=== PATIENT | male | born 1955 | race Caucasian/White ===

== ENCOUNTER 2016-06-03 13:27 | Emergency (ER) | payer OTHER ==
[~2016-06-03] VITALS: Ht 162.6 cm; Wt 63.5 kg
[~2016-06-03 13:27] MED LIST: ACET500C5 PO; ATOR10TA65 PO; BEN25 PO; CALAMINE TOP; DOCU-144 PO; FAMO40TA52 PO; GABA300C PO; GLIP5TAB25 PO; GUAI-637 PO; HC1C30 TOP; HYDR-3498 PO; IBUP-1542 PO; INSU100I15 SC; LISI10TA2 PO; LORA10CA PO; OMEP20CA16 PO; ONDA4TAB35 PO; PANT40TA3 PO; PERM120L5 TP; SITA50TA2 PO; SODI126M NASAL
[2016-06-03 13:32] VITALS: Ht 162.6 cm; Wt 63.5 kg
[2016-06-03] MEDS ORDERED: ONDANSETRON 4 MG INJ IV STA (14:24)
[2016-06-03] MEDS ORDERED: SOD CHLORIDE 0.9% 1,000 ML IV STA (14:24)
[2016-06-03] MEDS ORDERED: LIDOCAINE/MYLANTA 40 ML BTL PO ONE (14:30)
[2016-06-03] MEDS ORDERED: FAMOTIDINE 20 MG INJ IV ONE (14:30)
[2016-06-03 15:08] LABS: BASOPHIL # 0.1 10^3/ul (0.0-0.1); EOSINOPHILS # 0.5 10^3/ul (0.0-0.5); LYMPHOCYTES # 3.1 10^3/ul (0.8-2.9); MONOCYTE # 1.1 10^3/ul (0.3-0.9); RED BLOOD COUNT 4.71 10^6/ul (4.70-6.10)
[2016-06-03 15:11] LABS: ADD UMIC YES; URINE BILIRUBIN (Dip) NEGATIVE (NEGATIVE); URINE BLOOD (Dip) TRACE (NEGATIVE); URINE COLOR YELLOW (YELLOW); URINE GLUCOSE (Dip) NEGATIVE (NEGATIVE); URINE KETONES (Dip) TRACE (NEGATIVE); URINE LEUKOCYTE ESTERASE (Dip) NEGATIVE (NEGATIVE); URINE NITRITE (Dip) NEGATIVE (NEGATIVE); URINE TOTAL PROTEIN (Dip) 1+ (NEGATIVE); URINE UROBILINOGEN (Dip) 0.2 E.U./dL (0.1-1.0)
[2016-06-03 15:13] LABS: EOSINOPHILS % 4.3 % (0.0-7.0); HEMATOCRIT 43.2 % (42.0-52.0); HEMOGLOBIN 14.4 g/dl (14.0-18.0); LYMPHOCYTES % 25.3 % (15.0-51.0); MEAN CORPUSCULAR HEMOGLOBIN 30.6 pg (29.0-33.0); MEAN CORPUSCULAR HGB CONC 33.4 g/dl (32.0-37.0); MEAN CORPUSCULAR VOLUME 91.7 fl (82.0-101.0); MEAN PLATELET VOLUME 8.8 fl (7.4-10.4); NEUTROPHIL # 7.4 10^3/ul (1.6-7.5); NEUTROPHILS % 60.4 % (39.0-77.0); PLATELET COUNT 290 10^3/UL (140-440); RED CELL DISTRIBUTION WIDTH 13.8 % (11.5-14.5); UNCORRECTED WBC 12.2 10^3/ul (4.8-10.8); WHITE BLOOD COUNT 12.2 10^3/ul (4.8-10.8)
[2016-06-03 15:16] LABS: ALBUMIN 4.6 g/dl (3.3-4.9); POTASSIUM 4.9 mmol/L (3.5-5.1)
[2016-06-03 15:18] LABS: CREATININE 1.49 mg/dl (0.61-1.24)
[2016-06-03 15:19] LABS: ALBUMIN/GLOBULIN RATIO 1.06; BILIRUBIN,INDIRECT 0.4 mg/dl (0-1.1); BILIRUBIN,TOTAL 0.4 mg/dl (0.2-1.3); TOTAL PROTEIN 8.9 g/dl (6.1-8.1)
[2016-06-03 15:20] LABS: CALCIUM 10.1 mg/dl (8.4-10.2)
[2016-06-03 15:52] LABS: CONDITION 1; LH ANALYZER COMMENTS 1
[2016-06-03 15:59] LABS: SQUAMOUS EPITHELIAL CELL,UR RARE; URINE RBCS 0-2 /HPF (0)
[2016-06-03] MEDS ORDERED: OMEP20CA16 PO (17:30)
[2016-06-03] MEDS ORDERED: ONDA4TAB14 PO (17:30)
[2016-06-03] MEDS ORDERED: HYDR25SU23 PR (17:30)
[2016-06-03 17:40] VITALS: BP 141/67; PULSE 77; RESP 18; TEMP 98.5
--- NOTE | 2016-06-03 17:51 | ERD ---
ER Documentation Chief Complaint Date/Time DATE: 06/03/16 TIME: 17:44 Chief Complaint vomitting x 3 days HPI 60-year-old male with a past medical history of diabetes, renal insufficiency presents the ED complaining of slight abdominal pain as well as vomiting that started 3 days ago. Reports that he has normal bowel movements. States that he also had some slight rectal bleeding and states that he does have a history of hemorrhoids. Denies any diarrhea, chest pain, shortness of breath, fever. Patient has been seen here multiple times for similar symptoms. ROS All systems reviewed and are negative except as per history of present illness. Medications Home Meds Active Scripts Hydrocortisone Acetate (Anusol-Hc) 25 Mg Supp.rect, 1 SUPP DC BID Y for HEMORROID PAIN/ITCHING, #12 SUPP.RECT Prov:CHANTELLE COLEMAN PA-C 06/03/16 Omeprazole* (Omeprazole*) 20 Mg Capsule.dr, 20 MG PO DAILY, #30 CAP Prov:CHANTELLE COLEMAN PA-C 06/03/16 Ondansetron (Ondansetron Odt) 4 Mg Tab.rapdis, 4 MG PO Q6H Y for NAUSEA AND/OR VOMITING, #10 TAB Prov:CHANTELLE COLEMAN PA-C 06/03/16 Guaifenesin* (Robitussin*) 100 Mg/5 Ml Syrup, 100 MG PO Q4H Y for COUGH, #120 ML Prov:KALA CAMARA NP 04/18/16 Sodium Chloride (Saline Nasal Mist) 126 Ml Mist, 2 SPRAY NASAL Q2H Y for NASAL CONGESTION, #1 BOTTLE Prov:KALA CAMARA NP 04/18/16 Acetaminophen* (Tylophen*) 500 Mg Capsule, 1 CAP PO Q6H Y for PAIN AND OR ELEVATED TEMP, #20 CAP Prov:KALA CAMARA NP 04/18/16 Permethrin (Permethrin) 120 Ml Liquid, 120 ML TP QHS for 1 Day, #120 ML 0 Refills Prov:ELAINE NEFF PA-C 01/25/16 Calamine* (Calamine*) 120 Ml Lotion, 1 APPLIC TOP Q6 for 5 Days, #120 EA 0 Refills Prov:ELAINE NEFF PA-C 01/25/16 Diphenhydramine Hcl* (Benadryl*) 25 Mg Cap, 25 MG PO Q6 Y for ITCHING/RASH for 7 Days, #30 TAB 0 Refills Prov:ELAINE NEFF PA-C 01/25/16 Hydrocodone Bit-Acetaminophen* ([place]*) 5-325 Mg Tab, 1 TAB PO Q6 Y for PAIN, # 20 TAB Prov:AMAYA VILLAFANA [employer] 11/07/15 Ondansetron Hcl* (Zofran* ODT) 4 mg -ODT Tab.disper, 4 MG PO Q8 Y for NAUSEA AND /OR VOMITING, #30 TAB Prov:AMAYA VILLAFANA [employer] 11/07/15 Ibuprofen* (Motrin*) 600 Mg Tab, 600 MG PO Q6, #30 TAB Prov:HAKEEM FORD PA-C 10/30/15 Hydrocortisone* Topical (Hydrocortisone* Topical) 1%-28.35 Gm Cream..g., 1 APPLIC TOP Q6 Y for ITCHING, #1 TUB Prov:TARAS AMBROSIO PA-C 07/09/15 Diphenhydramine Hcl* (Benadryl*) 25 Mg Cap, 25 MG PO Q6, #14 CAP Prov:TARAS AMBROSIO PA-C 07/09/15 Loratadine* (Claritin*) 10 Mg Capsule, 10 MG PO DAILY, #30 CAP Prov:JESSA GARRISON DO 03/14/15 Sitagliptin* (Januvia*) 50 Mg Tablet, 50 MG PO DAILY, #30 TAB Prov:JESSA GARRISON DO 03/14/15 Ibuprofen* (Ibuprofen*) 600 Mg Tablet, 600 MG PO Q6, #30 TAB Prov:JESSA GARRISON DO 03/14/15 Glipizide* (Glipizide ER*) 5 Mg/Bottle Tab.osm.24, 5 MG PO DAILY, #30 TAB Prov:JESSA GARRISON DO 03/14/15 Omeprazole* (Omeprazole*) 20 Mg Capsule.dr, 20 MG PO DAILY, #30 CAP Prov:JESSA GARRISON DO 03/14/15 Docusate Sodium* (Colace*) 100 Mg Capsule, 100 MG PO BID, #60 CAP Prov:JESSA GARRISON HKalli DO 03/14/15 Atorvastatin (Atorvastatin) 10 Mg Tablet, 10 MG PO DAILY, #30 TAB Prov:JESSA GARRISON DO 03/14/15 Insulin Glargine,Hum.rec.anlog (Lantus Solostar) 100 Units/Ml Pen, 32 UNIT SC QHS, #30 DOSE Prov:JESSA GARRISON DO 03/14/15 Pantoprazole* (Protonix*) 40 Mg Tablet.dr, 40 MG PO DAILY, #20 TAB Prov:ANY LARSON MD 03/10/15 Reported Medications Famotidine* (Famotidine*) 40 Mg Tablet, 40 MG PO DAILY, TAB 05/13/14 Gabapentin* (Neurontin*) 300 Mg Capsule, 300 MG PO TID 08/22/12 Lisinopril* (Lisinopril*) 10 Mg Tablet, 10 MG PO DAILY 06/17/11 Allergies Allergies: Coded Allergies: No Known Drug Allergies (Verified Allergy, Unknown, 05/29/15) PMhx/Soc History of Surgery: No Anesthesia Reaction: No Hx Neurological Disorder: Yes (DEAF) Hx Respiratory Disorders: No Hx Cardiac Disorders: Yes (HTN) Hx Psychiatric Problems: No Hx Miscellaneous Medical Probl: Yes (CKD, chronic pain, DM,diabetic neuropathy, gastritis, RECTAL BLEEDING) Hx Alcohol Use: No Hx Substance Use: No Hx Tobacco Use: Yes (1 PACK PER WEEK ) Smoking Status: Current some day smoker Physical Exam Vitals Vital Signs Date Time Temp Pulse Resp B/P Pulse Ox O2 Delivery O2 Flow Rate FiO2 06/03/16 17:40 98.5 77 18 141/67 99 Room Air 06/03/16 13:32 98.3 90 19 142/64 99 Physical Exam Const: [id number], well-nourished. In no acute distress. Head: Atraumatic, normocephalic Eyes: Normal Conjunctiva without injection. No purulent discharge. ENT: Normal external ear, nose. Moist oropharynx without tonsillar exudates. Non -erythematous pharynx. Uvula midline. No drooling. No trismus. Neck: No cervical midline tenderness. Full range of motion. No meningismus. No cervical lymphadenopathy. No JVD. Resp: Clear to auscultation bilaterally. No wheezing, rhonchi, rales, or crackles. No accessory muscle use. No retractions. Cardio: Regular rate and rhythm. No murmurs, rubs or gallops. Abd: Soft, nontender to palpation, non distended. Normal bowel sounds. No palpable masses. No rebound tenderness. No guarding. Negative McBurney's point. Negative psoas sign. Negative obturator sign. Skin: No petechiae or rashes Back: No midline tenderness. No CVA tenderness. Ext: No cyanosis, or edema. Neur: Awake and alert. Normal gait. Normal coordination. Psych: Normal Mood and Affect Result Diagram: 06/03/16 1440 06/03/16 1440 Results 24 hrs Laboratory Tests Test 06/03/16 14:40 06/03/16 16:35 Alanine Aminotransferase (ALT/SGPT) 55IU/L Albumin 4.6g/dl Albumin/Globulin Ratio 1.06 Alkaline Phosphatase 89IU/L Anion Gap 20 Aspartate Amino Transf (AST/SGOT) 63IU/L Basophils # 0.110^3/ul Basophils % 1.0% Blood Urea Nitrogen 27mg/dl Calcium Level 10.1mg/dl Carbon Dioxide Level 28mmol/L Chloride Level 98mmol/L Creatinine 1.49mg/dl Direct Bilirubin 0.00mg/dl Eosinophils # 0.510^3/ul Eosinophils % 4.3% Globulin 4.30g/dl Glucose Level 79mg/dl Hematocrit 43.2% Hemoglobin 14.4g/dl Indirect Bilirubin 0.4mg/dl Lipase 188U/L Lymphocytes # 3.110^3/ul Lymphocytes % 25.3% Mean Corpuscular Hemoglobin 30.6pg Mean Corpuscular Hemoglobin Concent 33.4g/dl Mean Corpuscular Volume 91.7fl Mean Platelet Volume 8.8fl Monocytes # 1.110^3/ul Monocytes % 9.0% Neutrophils # 7.410^3/ul Neutrophils % 60.4% Nucleated Red Blood Cells # 0.010^3/ul Nucleated Red Blood Cells % 0.0/100WBC Platelet Count 23816^3/UL Potassium Level 4.9mmol/L Red Blood Count 4.7110^6/ul Red Cell Distribution Width 13.8% Sodium Level 141mmol/L Total Bilirubin 0.4mg/dl Total Protein 8.9g/dl Urine Bilirubin NEGATIVE Urine Clarity CLEAR Urine Color YELLOW Urine Glucose NEGATIVE% Urine Hemoglobin TRACE Urine Ketones TRACE Urine Leukocyte Esterase NEGATIVE Urine Microscopic RBC 0-2/HPF Urine Microscopic WBC 0-2/HPF Urine Nitrite NEGATIVE Urine Specific [place] 1.025 Urine Squamous Epithelial Cells RARE Urine Total Protein 1+ Urine Urobilinogen 0.2 E.U./dL Urine pH 6.0 White Blood Count 12.210^3/ul Stool Occult Blood NEGATIVE Current Medications Medications (Trade) Dose Ordered Sig/Jerilyn Route PRN Reason Start Time Stop Time Status Last Admin Dose Admin Sodium Chloride (NS) 1,000 ml @ 1,000 mls/hr Q1H STAT IV 06/03/16 14:24 06/03/16 15:23 DC 06/03/16 15:12 Ondansetron HCl (Zofran Inj) 4 mg ONCE STAT IV 06/03/16 14:24 06/03/16 14:27 DC 06/03/16 15:10 Famotidine (Pepcid Iv) 20 mg ONCE ONCE IV 06/03/16 14:30 06/03/16 14:31 DC 06/03/16 15:10 Miscellaneous Medication (Gi Cocktail (2)) 40 ml ONCE ONCE PO 06/03/16 14:30 06/03/16 14:31 DC 06/03/16 15:10 Procedures/MDM This is a 60-year-old male with a past medical history of diabetes presents the ED complaining of abdominal pain and vomiting. Patient is afebrile and nontoxic -appearing. Patient was treated here in the ED with GI cocktail, famotidine, 1 L normal saline with improvement. Patient was further worked up with CBC, CMP, lipase, UA. CBC: Leukocytosis of 12.2 noted. No e/o anemia. CMP: No e/o severe acidosis, alkalosis, Cr of 1.49 (patient has known renal insufficiency), diabetic ketoacidosis, liver disease Lipase within normal limits. Urine: No leukocyte esterase, no nitrites, no hematuria. Patient symptoms are likely due to his gastritis. States that he feels better. A rectal exam was done on patient at this time as he can consent. She was noted to have a non-thrombosed hemorrhoid noted on the right superior aspect of his rectum. There is low suspicion for fissures, fistula, abscess, or other emergent conditions. A differential diagnosis considered includes but is not limited to gastritis, GERD, peptic ulcer disease, cholecystitis, choledocholithiasis, cholangitis, pancreatitis, appendicitis, bowel obstruction , ileus, volvulus, nephrolithiasis, pyelonephritis, hepatitis, perforated viscus , diverticulitis, abdominal hernia, acute abdomen, mesenteric ischemia or other emergent conditions. This case was discussed with my supervising physician, Dr. Perry who agreed with the management and discharge plan. Dr. Perry also evaluated patient at this time. Discharge medications: Zofran, Omeprazole, Anusol Follow up with primary care physician in 1-2 days for referral to construction foreman. Instructed patient to return to the ED sooner for any worsening symptoms. Patient's questions were answered. Patient understood and agreed with discharge plan. Patient discharged stable. Departure Diagnosis: Primary Impression: Abdominal pain Additional Impressions: Acute hemorrhoid Vomiting Condition: Stable Patient Instructions: Abdominal Pain, Hemorrhoids, Vomiting (6Y-Adult), Renal Insufficiency [facility]: [facility] Usted se shepard hecho un examen mdico de control que le indica que no est en chon condicin que requiera tratamiento urgente en el Departamento de Emergencia. Un estudio ms profundo y el tratamiento de jorge condicin pueden esperar sin ningn riesgo hasta que usted sea atendida/o en el consultorio de jorge mdico o chon cl braxton. Es responsabilidad suya arreglar chon fernando para el seguimiento del fabio. MANEJO DE CONDICIONES NO URGENTES EN EL FUTURO 1) Si usted tiene un mdico de atencin primaria: Usted debera llamar a jorge mdico de atencin primaria antes de venir al departamento de emergencia. Despus de las horas de consultorio, jorge doctor o jorge asociado/a est disponible por telfono. El mdico o enfermero de jarad en el servicio telefnico puede asesorarle por helen medio para atender el problema, o fabio contrario se puede programar chon fernando. 2) Si usted no tiene un mdico de atencin primaria: Llame al mdico o clnica de referencia que aparece abajo kaylan las horas de consultorio para hacer chon fernando para que le vean. CLINICAS: [facility] [phone] [facility] [phone] [facility] [phone] [place] [id number] [phone] [facility]. [place] [address] [phone] [facility]. [phone] [address] [facility]. [facility] () ted se shepard hecho un examen mdico de control que le indica que no est en chon condicin que requiera tratamiento urgente en el Departamento de Emergencia. Un estudio ms profundo y el tratamiento de jorge condicin pueden esperar sin ningn riesgo hasta que usted sea atendida/o en el consultorio de jorge mdico o chon cl braxton. Es responsabilidad suya arreglar chon fernando para el seguimiento del fabio. MANEJO DE CONDICIONES NO URGENTES EN EL FUTURO 1) Si usted tiene un mdico de atencin primaria: ted debera llamar a jorge mdico de atencin primaria antes de venir al departamento de emergencia. Despus de las horas de consultorio, jorge doctor o jorge asociado/a est disponible por telfono. El mdico o enfermero de jarad en el servicio telefnico puede asesorarle por helen medio para atender el problema, o fabio contrario se puede programar chon fernando. 2) Si usted no tiene un mdico de atencin primaria: Llame al mdico o condado institucions de referencia que aparece abajo kaylan las horas de consultorio para hacer chon fernando para que le vean. SI USTED NO PUEDE PAGAR PARA CONNOR UN MEDICO puede ir a: [facility] [address] [place] [address] [facility] [address] [place] [address] [facility] [address] [place] [address] [facility] [address] [place], [place] [id number] Additional Instructions: Visite a jorge mdico clinton para un EXAMEN para chon referencia a gastroenteorlogist. Regrese a estas instalaciones si no se mejora devin esper bamos o devin le dijimos. CHANTELLE COLEMAN PA-C Jun 03, 2016 17:51
== END 2016-06-03 17:42 | disposition home or self-care (01) ==
LOC: FTE 13:27
DX: R10.9 Unspecified abdominal pain (principal); K64.8 Other hemorrhoids; R11.10 Vomiting, unspecified; I12.9 Hypertensive chronic kidney disease with stage 1 through stage 4 chronic kidney disease, or unspecified chronic kidney disease; N18.9 Chronic kidney disease, unspecified; E11.9 Type 2 diabetes mellitus without complications; F17.210 Nicotine dependence, cigarettes, uncomplicated; Z79.4 Long term (current) use of insulin; Z79.84 Long term (current) use of oral hypoglycemic drugs
CPT/HCPCS: 36415; 80053; 81001; 82270; 83690; 85025; 96374; 96375; J2405; J7030; Z7502; Z7610; 81003

== ENCOUNTER 2016-11-04 03:05 | Emergency (ER) | payer OTHER ==
[~2016-11-04] VITALS: Ht 167.6 cm; Wt 67.5 kg
[~2016-11-04 03:05] MED LIST changes: +HYDR25SU23 PR; +ONDA4TAB14 PO
[2016-11-04 03:19] VITALS: Ht 167.6 cm; Wt 67.5 kg
[2016-11-04] MEDS ORDERED: ELIM TOP (04:32)
[2016-11-04] MEDS ORDERED: HYDR-3011 PO (04:32)
--- NOTE | 2016-11-04 05:31 | ERA ---
ER Documentation Chief Complaint Date/Time DATE: 11/04/16 TIME: 05:29 Chief Complaint total body itching x 4 days, no rash seen. calamine lotion not working. HPI 61-year-old male presents here in emergency department for complaints of itching all over the body, noted some papular rash, was given calamine lotion by primary care doctor is not working, patient sleeps by himself. Patient does not have any fever or chills. Patient does not have any family members that sleep with him that the same symptoms. ROS All systems reviewed and are negative except as per history of present illness. Medications Home Meds Active Scripts Hydroxyzine Hcl* (Hydroxyzine Hcl*) 25 Mg Tablet, 25 MG PO Q8H Y for ITCHING, # 30 TAB Prov:AMAYA VILLAFANA NP 11/04/16 Permethrin* (Elimite*) 5% Cr, 1 APPLIC TOP ONCE, #1 TUB Prov:AMAYA VILLAFANA NP 11/04/16 Hydrocortisone Acetate (Anusol-Hc) 25 Mg Supp.rect, 1 SUPP GA BID Y for HEMORROID PAIN/ITCHING, #12 SUPP.RECT Prov:CHANTELLE COLEMAN PA-C 06/03/16 Omeprazole* (Omeprazole*) 20 Mg Capsule.dr, 20 MG PO DAILY, #30 CAP Prov:CHANTELLE COLEMAN PA-C 06/03/16 Ondansetron (Ondansetron Odt) 4 Mg Tab.rapdis, 4 MG PO Q6H Y for NAUSEA AND/OR VOMITING, #10 TAB Prov:CHANTELLE COLEMAN PA-C 06/03/16 Guaifenesin* (Robitussin*) 100 Mg/5 Ml Syrup, 100 MG PO Q4H Y for COUGH, #120 ML Prov:KALA CAMARA NP 04/18/16 Sodium Chloride (Saline Nasal Mist) 126 Ml Mist, 2 SPRAY NASAL Q2H Y for NASAL CONGESTION, #1 BOTTLE Prov:KALA CAMARA NP 04/18/16 Acetaminophen* (Tylophen*) 500 Mg Capsule, 1 CAP PO Q6H Y for PAIN AND OR ELEVATED TEMP, #20 CAP Prov:KALA CAMARA NP 04/18/16 Permethrin (Permethrin) 120 Ml Liquid, 120 ML TP QHS for 1 Day, #120 ML 0 Refills Prov:ELIANE NEFF PA-C 01/25/16 Calamine* (Calamine*) 120 Ml Lotion, 1 APPLIC TOP Q6 for 5 Days, #120 EA 0 Refills Prov:ELAINE NEFF PA-C 01/25/16 Diphenhydramine Hcl* (Benadryl*) 25 Mg Cap, 25 MG PO Q6 Y for ITCHING/RASH for 7 Days, #30 TAB 0 Refills Prov:ELAINE NEFF PA-C 01/25/16 Hydrocodone Bit-Acetaminophen* ([place]*) 5-325 Mg Tab, 1 TAB PO Q6 Y for PAIN, # 20 TAB Prov:AMAYA VILLAFANA NP 11/07/15 Ondansetron Hcl* (Zofran* ODT) 4 mg -ODT Tab.disper, 4 MG PO Q8 Y for NAUSEA AND /OR VOMITING, #30 TAB Prov:AMAYA VILLAFANA NP 11/07/15 Ibuprofen* (Motrin*) 600 Mg Tab, 600 MG PO Q6, #30 TAB Prov:HAKEEM FORD PA-C 10/30/15 Hydrocortisone* Topical (Hydrocortisone* Topical) 1%-28.35 Gm Cream..g., 1 APPLIC TOP Q6 Y for ITCHING, #1 TUB Prov:TARAS AMBROSIO PA-C 07/09/15 Diphenhydramine Hcl* (Benadryl*) 25 Mg Cap, 25 MG PO Q6, #14 CAP Prov:TARAS AMBROSIO PA-C 07/09/15 Loratadine* (Claritin*) 10 Mg Capsule, 10 MG PO DAILY, #30 CAP Prov:JESSA GARRISON H. DO 03/14/15 Sitagliptin* (Januvia*) 50 Mg Tablet, 50 MG PO DAILY, #30 TAB Prov:MELIJESSA H. DO 03/14/15 Ibuprofen* (Ibuprofen*) 600 Mg Tablet, 600 MG PO Q6, #30 TAB Prov:MELIJESSA H. DO 03/14/15 Glipizide* (Glipizide ER*) 5 Mg/Bottle Tab.osm.24, 5 MG PO DAILY, #30 TAB Prov:HOJESSA DO 03/14/15 Omeprazole* (Omeprazole*) 20 Mg Capsule., 20 MG PO DAILY, #30 CAP Prov:JESSA GARRISON DO 03/14/15 Docusate Sodium* (Colace*) 100 Mg Capsule, 100 MG PO BID, #60 CAP Prov:JESSA GARRISON DO 03/14/15 Atorvastatin (Atorvastatin) 10 Mg Tablet, 10 MG PO DAILY, #30 TAB Prov:JESSA GARRISON DO 03/14/15 Insulin Glargine,Hum.rec.anlog (Lantus Solostar) 100 Units/Ml Pen, 32 UNIT SC QHS, #30 DOSE Prov:JESSA GARRISON DO 03/14/15 Pantoprazole* (Protonix*) 40 Mg Tablet., 40 MG PO DAILY, #20 TAB Prov:ANY LARSON MD 03/10/15 Reported Medications Famotidine* (Famotidine*) 40 Mg Tablet, 40 MG PO DAILY, TAB 05/13/14 Gabapentin* (Neurontin*) 300 Mg Capsule, 300 MG PO TID 08/22/12 Lisinopril* (Lisinopril*) 10 Mg Tablet, 10 MG PO DAILY 06/17/11 Allergies Allergies: Coded Allergies: No Known Drug Allergies (Verified Allergy, Unknown, 05/29/15) PMhx/Soc History of Surgery: No Anesthesia Reaction: No Hx Neurological Disorder: Yes (DEAF) Hx Respiratory Disorders: No Hx Cardiac Disorders: Yes (HTN) Hx Psychiatric Problems: No Hx Miscellaneous Medical Probl: Yes (CKD, chronic pain, DM,diabetic neuropathy, gastritis, RECTAL BLEEDING) Hx Alcohol Use: No Hx Substance Use: No Hx Tobacco Use: Yes (1 PACK PER WEEK ) Smoking Status: Never smoker FmHx Family History: No coronary disease, No diabetes, No other Physical Exam Vitals Vital Signs Date Time Temp Pulse Resp B/P Pulse Ox O2 Delivery O2 Flow Rate FiO2 11/04/16 03:19 97.9 84 18 137/69 98 Physical Exam GENERAL: The patient is well developed and appropriate for usual state of health, in no apparent distress. CHEST: Clear to auscultation bilaterally. There are no rales, wheezes or rhonchi. HEART: Regular rate and rhythm. No murmurs, clicks, rubs or gallops. No S3 or S4. ABDOMEN: Soft, nontender and nondistended. Good bowel sounds. No rebound or guarding. No gross peritonitis. No gross organomegaly or masses. No Marroquin sign or McBurney point tenderness. BACK: No midline or flank tenderness. EXTREMITIES: Equal pulses bilaterally. There is no peripheral clubbing, cyanosis or edema. No focal swelling or erythema. Full range of motion. Grossly neurovascularly intact. NEURO: Alert and oriented. Cranial nerves 2-12 intact. Motor strength in all 4 extremities with 5/5 strength. Sensation grossly intact. Normal speech and gait. SKIN: Papular rash with burning noted in between fingers. There is no apparent ecchymosis or petechia. The skin is warm and dry. HEMATOLOGIC AND LYMPHATIC: There is no evidence of excessive bruising or lymphedema. No gross cervical, axillary, or inguinal lymphadenopathy. Procedures/MDM Medical decision making: Patient's rash nonspecific at this time, high suspicion for possible scabies. No symptoms of any allergic reaction, symptoms of any coagulopathies. No symptoms of sepsis at this time. Patient appears well and is hemodynamically stable. Prescription was given for permethrin, hydroxyzine, is advised to follow-up with primary care doctor in 2-3 days for reevaluation of symptoms. Patient is advised to return to emergency department for new worsening symptoms. Departure Diagnosis: Primary Impression: Rash Condition: Stable Patient Instructions: Self-Care for Skin Rashes Referrals: KANDACE FOLEY MD (PCP) AMAYA VILLAFANA NP Nov 04, 2016 05:31
== END 2016-11-04 05:02 | disposition home or self-care (01) ==
LOC: FTE 03:05
DX: R21 Rash and other nonspecific skin eruption (principal); I12.9 Hypertensive chronic kidney disease with stage 1 through stage 4 chronic kidney disease, or unspecified chronic kidney disease; N18.9 Chronic kidney disease, unspecified; E11.9 Type 2 diabetes mellitus without complications; F17.210 Nicotine dependence, cigarettes, uncomplicated; Z79.4 Long term (current) use of insulin; Z79.84 Long term (current) use of oral hypoglycemic drugs
CPT/HCPCS: 99283

== ENCOUNTER 2016-12-02 12:37 | Emergency (ER) | END 2016-12-02 15:10 | disposition home or self-care (01) | DX: R10.32 Left lower quadrant pain (principal); R11.2 Nausea with vomiting, unspecified; E87.1 Hypo-osmolality and hyponatremia; I12.9 Hypertensive chronic kidney disease with stage 1 through stage 4 chronic kidney disease, or unspecified chronic kidney disease; N18.9 Chronic kidney disease, unspecified; E11.22 Type 2 diabetes mellitus with diabetic chronic kidney disease; F17.210 Nicotine dependence, cigarettes, uncomplicated | CPT/HCPCS: 36415; 74176; 80053; 81001; 83690; 85025; 96374; 96375; 96376; J2270; J2405; J2765; J7030; Z7502; Z7610 ==

== ENCOUNTER 2016-12-04 22:55 | Emergency (ER) | payer OTHER ==
[~2016-12-04] VITALS: Ht 152.4 cm; Wt 64.5 kg
[~2016-12-04 22:55] MED LIST changes: +ELIM TOP; +HYDR-3011 PO; +ONDA-43 PO
[2016-12-04 23:02] VITALS: Ht 152.4 cm; Wt 64.5 kg
[2016-12-04 23:29] VITALS: TEMP 97.2
[2016-12-05 00:16] LABS: ADD SCAN DIFF NO
[2016-12-05 00:22] LABS: ABNORMAL IP MESSAGE 1; BASOPHIL # 0.1 10^3/ul (0.0-0.1); BASOPHILS % 0.4 % (0.0-2.0); EOSINOPHILS % 0.2 % (0.0-7.0); HEMATOCRIT 44.6 % (42.0-52.0); HEMOGLOBIN 14.4 g/dl (14.0-18.0); LYMPHOCYTES # 2.6 10^3/ul (0.8-2.9); MEAN CORPUSCULAR HEMOGLOBIN 29.1 pg (29.0-33.0); MEAN CORPUSCULAR HGB CONC 32.3 g/dl (32.0-37.0); MEAN CORPUSCULAR VOLUME 90.1 fl (82.0-101.0); MEAN PLATELET VOLUME 11.5 fl (7.4-10.4); MONOCYTE # 1.6 10^3/ul (0.3-0.9); MONOCYTES % 10.2 % (0.0-11.0); NEUTROPHIL # 10.8 10^3/ul (1.6-7.5); NEUTROPHILS % 71.1 % (39.0-77.0); PLATELET COUNT 314 10^3/UL (140-415); RED BLOOD COUNT 4.95 10^6/ul (4.70-6.10); RED CELL DISTRIBUTION WIDTH 13.7 % (11.5-14.5); WHITE BLOOD COUNT 15.2 10^3/ul (4.8-10.8)
--- NOTE | 2016-12-05 00:37 | RADRPT ---
PROCEDURE: XR Chest. CLINICAL INDICATION: Syncope. TECHNIQUE: Single frontal view of the chest. COMPARISON: 07/29/2014. FINDINGS: The cardiomediastinal silhouette is within normal limits. The lungs are clear. No signs of pleural f luid or pneumothorax are seen. The osseous structures and soft tissues are unremarkable. IMPRESSION: No evidence for active cardiopulmonary disease. RPTAT: [facility] Physician Van Date Time Electronically viewed and signed by Vianey Sauer Physician on 12/05/2016 00:36 RS/
[2016-12-05 00:41] LABS: INR 0.99; PARTIAL THROMBOPLASTIN TIME 26.6 Sec (25.0-35.0); PROTIME 13.1 Sec (12.2-14.2)
[2016-12-05 00:44] LABS: ANION GAP 16 (8-16); BLOOD UREA NITROGEN 76 mg/dl (7-20); CALCIUM 10.7 mg/dl (8.4-10.2); CARBON DIOXIDE 23 mmol/L (21-31); CHLORIDE 96 mmol/L (97-110); CREATININE 3.75 mg/dl (0.61-1.24); GLUCOSE 330 mg/dl (70-220); POTASSIUM 4.8 mmol/L (3.5-5.1); SODIUM 130 mmol/L (135-144)
[2016-12-05 00:51] LABS: ETHANOL < 10.0 mg/dl
[2016-12-05 00:55] LABS: TROPONIN-I < 0.012 ng/ml (0.00-0.12)
--- NOTE | 2016-12-05 01:23 | ERA ---
ER Documentation Chief Complaint Date/Time DATE: 12/05/16 TIME: 01:21 Chief Complaint Fainted HPI The patient is a 61-year-old male, presenting to the ER because he fainted in the bathroom for unknown duration. His friend came to his house and found him. He has hard of hearing and speech impairment. He is a very poor historian. He denies headache, neck pain, chest pain, dyspnea, abdominal pain, vomiting, dysuria, diarrhea, constipation. He smokes denies drinking or using any illicit drug Past medical history: Chronic pain syndrome, hypertension, chronic kidney disease, gastritis Past surgical history: None ROS All systems reviewed and are negative except as per history of present illness. Medications Home Meds Active Scripts Ondansetron Hcl* (Zofran*) 4 Mg Tab, 4 MG PO Q6H Y for NAUSEA AND OR VOMITING for 3 Days, TAB Prov:CLAUDINE ZUNIGA DO 12/02/16 Hydroxyzine Hcl* (Hydroxyzine Hcl*) 25 Mg Tablet, 25 MG PO Q8H Y for ITCHING, # 30 TAB Prov:AMAYA VILLAFANA NP 11/04/16 Permethrin* (Elimite*) 5% Cr, 1 APPLIC TOP ONCE, #1 TUB Prov:AMAYA VILLAFANA NP 11/04/16 Hydrocortisone Acetate (Anusol-Hc) 25 Mg Supp.rect, 1 SUPP MS BID Y for HEMORROID PAIN/ITCHING, #12 SUPP.RECT Prov:CHANTELLE COLEMAN PA-C 06/03/16 Omeprazole* (Omeprazole*) 20 Mg Capsule.dr, 20 MG PO DAILY, #30 CAP Prov:CHANTELLE COLEMAN PA-C 06/03/16 Ondansetron (Ondansetron Odt) 4 Mg Tab.rapdis, 4 MG PO Q6H Y for NAUSEA AND/OR VOMITING, #10 TAB Prov:CHANTELLE COLEMAN PA-C 06/03/16 Acetaminophen* (Tylophen*) 500 Mg Capsule, 1 CAP PO Q6H Y for PAIN AND OR ELEVATED TEMP, #20 CAP Prov:KALA CAMARA NP 04/18/16 Calamine* (Calamine*) 120 Ml Lotion, 1 APPLIC TOP Q6 for 5 Days, #120 EA 0 Refills Prov:ELAINE NEFF PA-C 01/25/16 Hydrocodone Bit-Acetaminophen* ([place]*) 5-325 Mg Tab, 1 TAB PO Q6 Y for PAIN, # 20 TAB Prov:AMAYA VILLAFANA COAT CUTTER 11/07/15 Ibuprofen* (Motrin*) 600 Mg Tab, 600 MG PO Q6, #30 TAB Prov:HAKEEM FORDC 10/30/15 Diphenhydramine Hcl* (Benadryl*) 25 Mg Cap, 25 MG PO Q6, #14 CAP Prov:TARAS AMBROSIOC 07/09/15 Glipizide* (Glipizide ER*) 5 Mg/Bottle Tab.osm.24, 5 MG PO DAILY, #30 TAB Prov:JESSA GARRISON DO 03/14/15 Omeprazole* (Omeprazole*) 20 Mg Capsule.dr, 20 MG PO DAILY, #30 CAP Prov:JESSA GARRISON DO 03/14/15 Docusate Sodium* (Colace*) 100 Mg Capsule, 100 MG PO BID, #60 CAP Prov:JESSA GARRISON DO 03/14/15 Atorvastatin (Atorvastatin) 10 Mg Tablet, 10 MG PO DAILY, #30 TAB Prov:JESSA GARRISON DO 03/14/15 Insulin Glargine,Hum.rec.anlog (Lantus Solostar) 100 Units/Ml Pen, 32 UNIT SC QHS, #30 DOSE Prov:JESSA GARRISON DO 03/14/15 Reported Medications Famotidine* (Famotidine*) 40 Mg Tablet, 40 MG PO DAILY, TAB 05/13/14 Lisinopril* (Lisinopril*) 10 Mg Tablet, 10 MG PO DAILY 06/17/11 Discontinued Reported Medications Gabapentin* (Neurontin*) 300 Mg Capsule, 300 MG PO TID 08/22/12 Discontinued Scripts Guaifenesin* (Robitussin*) 100 Mg/5 Ml Syrup, 100 MG PO Q4H Y for COUGH, #120 ML Prov:KALA CAMARA COAT CUTTER 04/18/16 Sodium Chloride (Saline Nasal Mist) 126 Ml Mist, 2 SPRAY NASAL Q2H Y for NASAL CONGESTION, #1 BOTTLE Prov:KALA CAMARA COAT CUTTER 11/25/16 Permethrin (Permethrin) 120 Ml Liquid, 120 ML TP QHS for 1 Day, #120 ML 0 Refills Prov:ELAINE NEFF PA-C 01/25/16 Diphenhydramine Hcl* (Benadryl*) 25 Mg Cap, 25 MG PO Q6 Y for ITCHING/RASH for 7 Days, #30 TAB 0 Refills Prov:ELAINE NEFF PA-C 01/25/16 Ondansetron Hcl* (Zofran* ODT) 4 mg -ODT Tab.disper, 4 MG PO Q8 Y for NAUSEA AND /OR VOMITING, #30 TAB Prov:AMAYA VILLAFANA NP 11/07/15 Hydrocortisone* Topical (Hydrocortisone* Topical) 1%-28.35 Gm Cream..g., 1 APPLIC TOP Q6 Y for ITCHING, #1 TUB Prov:TARAS AMBROSIO PA-C 07/09/15 Loratadine* (Claritin*) 10 Mg Capsule, 10 MG PO DAILY, #30 CAP Prov:JESSA GARRISON DO 03/14/15 Sitagliptin* (Januvia*) 50 Mg Tablet, 50 MG PO DAILY, #30 TAB Prov:JESSA GARRISON DO 03/14/15 Ibuprofen* (Ibuprofen*) 600 Mg Tablet, 600 MG PO Q6, #30 TAB Prov:JESSA GARRISON DO 03/14/15 Pantoprazole* (Protonix*) 40 Mg Tablet.dr, 40 MG PO DAILY, #20 TAB Prov:ANY LARSON MD 03/10/15 Allergies Allergies: Coded Allergies: No Known Drug Allergies (Unverified Allergy, Unknown, 12/05/16) PMhx/Soc History of Surgery: No Anesthesia Reaction: No Hx Neurological Disorder: Yes (DEAF) Hx Respiratory Disorders: No Hx Cardiac Disorders: Yes (HTN) Hx Psychiatric Problems: No Hx Miscellaneous Medical Probl: Yes (CKD, chronic pain, DM,diabetic neuropathy, gastritis, RECTAL BLEEDING) Hx Alcohol Use: No Hx Substance Use: No Hx Tobacco Use: Yes (1 PACK PER WEEK ) Smoking Status: Current every day smoker Physical Exam Vitals Vital Signs Date Time Temp Pulse Resp B/P Pulse Ox O2 Delivery O2 Flow Rate FiO2 12/05/16 01:56 78 20 109/74 98 Room Air 12/04/16 23:29 97.2 93 20 89/44 100 Room Air 12/04/16 23:02 97.3 105 20 114/58 99 Physical Exam Const: No acute distress. Head: Atraumatic. Eyes: Normal Conjunctiva. ENT: Normal External Ears, Nose and Mouth. Neck: Full range of motion. No meningismus. Resp: Clear to auscultation bilaterally. Cardio: Regular tachycardic Abd: Soft, non distended, normal bowel sounds, non tender. Skin: No petechiae or rashes. Back: No midline or flank tenderness. Ext: No cyanosis, or edema. Neur: Awake and alert. No focal deficit Psych: Normal Mood and Affect. Result Diagram: 12/04/16 2340 12/04/16 2340 Results 24 hrs Laboratory Tests Test 12/04/16 23:40 12/04/16 23:54 12/05/16 01:31 12/05/16 02:39 White Blood Count 15.210^3/ul Red Blood Count 4.9510^6/ul Hemoglobin 14.4g/dl Hematocrit 44.6% Mean Corpuscular Volume 90.1fl Mean Corpuscular Hemoglobin 29.1pg Mean Corpuscular Hemoglobin Concent 32.3g/dl Red Cell Distribution Width 13.7% Platelet Count 02005^3/UL Mean Platelet Volume 11.5fl Neutrophils % 71.1% Lymphocytes % 17.0% Monocytes % 10.2% Eosinophils % 0.2% Basophils % 0.4% Nucleated Red Blood Cells % 0.0/100WBC Neutrophils # 10.810^3/ul Lymphocytes # 2.610^3/ul Monocytes # 1.610^3/ul Eosinophils # 0.010^3/ul Basophils # 0.110^3/ul Nucleated Red Blood Cells # 0.010^3/ul Prothrombin Time 13.1Sec Prothrombin Time Ratio 1.0 INR International Normalized Ratio 0.99 Activated Partial Thromboplast Time 26.6Sec Sodium Level 130mmol/L Potassium Level 4.8mmol/L Chloride Level 96mmol/L Carbon Dioxide Level 23mmol/L Anion Gap 16 Blood Urea Nitrogen 76mg/dl Creatinine 3.75mg/dl Glucose Level 330mg/dl Calcium Level 10.7mg/dl Troponin I < 0.012ng/ml Ethyl Alcohol Level < 10.0mg/dl Urine Opiates Screen Positive Urine Barbiturates Negative Urine Amphetamines Screen Negative Urine Benzodiazepines Screen Negative Urine Cocaine Screen Positive Urine Cannabinoids Positive Bedside Glucose 257mg/dL Bedside Urine pH (LAB) 5.5 Bedside Urine Protein (LAB) Trace Bedside Urine Glucose (UA) Negative Bedside Urine Ketones (LAB) Negative Bedside Urine Blood Negative Bedside Urine Nitrite (LAB) Negative Bedside Urine Leukocyte Esterase (L Negative Current Medications Medications (Trade) Dose Ordered Sig/Jerilyn Route PRN Reason Start Time Stop Time Status Last Admin Dose Admin Atorvastatin Calcium (Lipitor) 10 mg DAILY@21 PO 12/05/16 21:00 Calamine (Calamine Lotion) 1 applic Q6 TOP 12/05/16 06:00 Docusate Sodium (Colace) 100 mg BID PO 12/05/16 09:00 Famotidine (Pepcid) 40 mg DAILY PO 12/05/16 09:00 12/05/16 09:00 DC Insulin Glargine (Lantus) 32 unit QHS SC 12/05/16 21:00 Ondansetron HCl (Zofran Tab) 4 mg Q6H PRN PO NAUSEA AND/OR VOMITING 12/05/16 03:30 Pantoprazole 40 mg 40 mg DAILY@06 PO 12/05/16 06:00 12/05/16 06:00 DC Sodium Chloride (NS) 1,000 ml @ 75 mls/hr [id number] IV 12/05/16 03:15 IV Flush (NS 3 ml) 3 ml PER PROTOCOL IV 12/05/16 03:30 Ondansetron HCl (Zofran Inj) 4 mg Q6H PRN IV NAUSEA AND/OR VOMITING 12/05/16 03:30 Acetaminophen (Tylenol Tab) 650 mg Q6H PRN PO PAIN LEVEL 1-3 OR FEVER 12/05/16 03:30 Docusate Sodium (Colace) 100 mg Q12H PRN PO CONSTIPATION 12/05/16 03:30 Bisacodyl (Dulcolax) 5 mg DAILY PRN PO CONSTIPATION 12/05/16 03:30 Pantoprazole (Protonix Iv) 40 mg DAILY@06 IV 12/05/16 06:00 Procedures/MDM EKG: Read by emergency physician Rate/Rhythm: Normal Sinus Rhythm 95 beats/min QRS, ST, T-waves: No ST elevation, no T inversion Impression: Normal EKG [facility] [address], [place], [place] [address] Radiology Main Line: [phone] DIAGNOSTIC IMAGING REPORT Patient: RAMON AZEVEDO : 1955 Age: 61 Sex: M MR #: [id number] DOS: 12/04/16 2354 Ordering MD: ANY LARSON MD Location: E/R Room/Bed: PROCEDURE: Noncontrast CT Head. CLINICAL INDICATION: Syncope TECHNIQUE: Noncontrast CT of the head was obtained. The administered radiation dose was CTDI vol = 41 mGy, DLP = 720 mGy-cm. COMPARISON: 01/26/2009 FINDINGS: The ventricles and cortical sulci are mildly enlarged. This has progressed compared to the prior. There is no acute intracranial hemorrhage or extra-axial fluid collection. There is no mass effect. No midline shift is identified. There is no loss of ascencio-white differentiation to suggest acute infarction. A chronic right lamina papyracea fractures. The paranasal sinuses and mastoid air cells are without fluid. No destructive osseous lesion is identified. IMPRESSION: No acute findings. Mild diffuse parenchymal volume loss which has progressed compared to the prior. RPTAT: HIKT .Rony Banuelos MD, MD Date Time Electronically viewed and signed by .Rony Banuelos MD, MD on 12/05/2016 02:26 .T/ CC: ANY LARSON MD [address] [address] Radiology Main Line: [phone] DIAGNOSTIC IMAGING REPORT Patient: RAMON AZEVEDO : 1955 Age: 61 Sex: M MR #: [id number] DOS: 12/04/16 2354 Ordering MD: ANY LARSON MD Location: E/R Room/Bed: PROCEDURE: XR Chest. CLINICAL INDICATION: Syncope. TECHNIQUE: Single frontal view of the chest. COMPARISON: 07/29/2014. FINDINGS: The cardiomediastinal silhouette is within normal limits. The lungs are clear. No signs of pleural fluid or pneumothorax are seen. The osseous structures and soft tissues are unremarkable. IMPRESSION: No evidence for active cardiopulmonary disease. RPTAT: [facility] Physician Van Date Time Electronically viewed and signed by Vianey Sauer Physician on 12/05/2016 00:36 RS/ CC: ANY LARSON MD MEDICAL MAKING DECISION: The patient is a 61-year-old male, presenting with acute syncope of unclear etiology, acute diabetic hyperglycemia, acute leukocytosis of unclear etiology. The differential diagnoses considered include but are not limited to bradyarrhythmia, tachyarrhythmias, aortic outflow obstruction, neurogenic including subarachnoid hemorrhage, orthostatic hypotension and all of its causes , hypoglycemia, dysautonomia, medications, UTI, pneumonia. Urine drug screen is pending Departure Diagnosis: Primary Impression: Syncope Additional Impression: Leukocytosis Condition: Stable Comments I discussed the findings with the patient. I discussed the patient with the on- call hospitalist Dr. Jesus at 2:45 AM who was made aware of the lab, the treatment, the patient condition. The patient is admitted to telemetry ANY LARSON MD Dec 05, 2016 01:23
--- NOTE | 2016-12-05 02:26 | RADRPT ---
PROCEDURE: Noncontrast CT Head. CLINICAL INDICATION: Syncope TECHNIQUE: Noncontrast CT of the head was obtained. The administered radiation dose was CTDI vol = 41 mGy, DLP = 720 mGy-cm. COMPARISON: 01/26/2009 FINDINGS: The ventricles and cortical sulci are mildly enlarged. This has progressed compared to the prior. Th ere is no acute intracranial hemorrhage or extra-axial fluid collection. There is no mass effect. No midline shift is identified. There is no loss of ascencio-white differentiation to suggest acute infarc tion. A chronic right lamina papyracea fractures. The paranasal sinuses and mastoid air cells are without fluid. No destructive osseous lesion is identified. IMPRESSION: No acute findings. Mild diffuse parenchymal volume loss which has progressed compared to the prior. RPTAT: HIKT .Rony Banuelos MD, MD Date Time Electronically viewed and signed by .Rony Banuelos MD, MD on 12/05/2016 02:26 .T/
[2016-12-05 02:35] LABS: URINE BLOOD (Dip) POC Negative (NEGATIVE)
--- NOTE | 2016-12-05 03:02 | HP ---
Date/Time of Note Date/Time of Note DATE: 12/05/16 TIME: 03:01 HPI/ROS Admit Date/Time Admit Date/Time PMH/Family/Social Social History Smoking Status: Current every day smoker Exam/Review of Systems Vital Signs Vitals Vital Signs Date Time Temp Pulse Resp B/P Pulse Ox O2 Delivery O2 Flow Rate FiO2 12/05/16 01:56 78 20 109/74 98 Room Air 12/04/16 23:29 97.2 Labs Result Diagram: 12/04/16 2340 12/04/16 2340 SANDRA CHUN Dec 05, 2016 03:01 COMPARISON: 01/26/2009 FINDINGS: The ventricles and cortical sulci are mildly enlarged. This has progressed compared to the prior. There is no acute intracranial hemorrhage or extra-axial fluid collection. There is no mass effect. No midline shift is identified. There is no loss of ascencio-white differentiation to suggest acute infarction. A chronic right lamina papyracea fractures. The paranasal sinuses and mastoid air cells are without fluid. No destructive osseous lesion is identified. IMPRESSION: No acute findings. Mild diffuse parenchymal volume loss which has progressed compared to the prior. RPTAT: HIKT .Rony Banuelos MD, MD Date Time Electronically viewed and signed by .Rony Banuelos MD, MD on 12/05/2016 02:26 PROCEDURE: XR Chest. CLINICAL INDICATION: Syncope. TECHNIQUE: Single frontal view of the chest. COMPARISON: 07/29/2014. FINDINGS: The cardiomediastinal silhouette is within normal limits. The lungs are clear. No signs of pleural fluid or pneumothorax are seen. The osseous structures and soft tissues are unremarkable. IMPRESSION: No evidence for active cardiopulmonary disease. RPTAT: UU Physician Van Date Time Electronically viewed and signed by Physician Van on 12/05/2016 00:36 Labs Result Diagram: 12/04/16 2340 12/04/16 2340 SANDRA CHUN Dec 05, 2016 03:01
[2016-12-05] MEDS ORDERED: SOD CHLORIDE 0.9% 1,000 ML IV SCH (03:15)
[2016-12-05] MEDS ORDERED: DOCUSATE SODIUM 100 MG CAP PO PRN (03:30)
[2016-12-05] MEDS ORDERED: BISACODYL (EC) 5 MG TAB PO PRN (03:30)
[2016-12-05] MEDS ORDERED: ONDANSETRON 4 MG INJ IV PRN (03:30)
[2016-12-05] MEDS ORDERED: ACETAMINOPHEN 325 MG TAB PO PRN (03:30)
[2016-12-05] MEDS ORDERED: ONDANSETRON 4 MG TAB PO PRN (03:30)
[2016-12-05] MEDS ORDERED: NACL 0.9% 3 ML SYG IV SCH (03:30)
[2016-12-05 03:48] LABS: COCAINE Positive (NEGATIVE); OPIATES Positive (NEGATIVE)
[2016-12-05 04:14] LABS: BARBITURATES Negative (NEGATIVE); BENZODIAZEPINES Negative (NEGATIVE); CANNABINOIDS Positive (NEGATIVE)
[2016-12-05] MEDS ORDERED: CALAMINE 170 ML LOT TOP SCH ×2 (06:00→12:00)
[2016-12-05] MEDS ORDERED: PANTOPRAZOLE (EC) 40 MG TAB PO SCH (06:00)
[2016-12-05] MEDS ORDERED: PANTOPRAZOLE 40 MG INJ IV SCH (06:00)
[2016-12-05] MEDS ORDERED: DOCUSATE SODIUM 100 MG CAP PO SCH (09:00)
[2016-12-05] MEDS ORDERED: FAMOTIDINE 20 MG TAB PO SCH (09:00)
[2016-12-05] MEDS ORDERED: GLUCOSE GEL 15 GRAM TUBE PO PRN ×2 (10:00)
[2016-12-05] MEDS ORDERED: GLUCOSE GEL 15 GRAM TUBE BUCCAL PRN (10:00)
[2016-12-05] MEDS ORDERED: GLUCAGON 1 MG INJ IM PRN (10:00)
[2016-12-05] MEDS ORDERED: hydrALAzine 20 MG INJ IV PRN (10:00)
[2016-12-05] MEDS ORDERED: DEXTROSE 50% 50 ML SYRINGE IV PRN ×2 (10:00)
--- NOTE | 2016-12-05 10:10 | HP ---
Date/Time of Note Date/Time of Note DATE: 12/05/16 TIME: 10:03 Assessment/Plan VTE Prophylaxis VTE Prophylaxis Intervention: heparin Assessment/Plan Chief Complaint/Hosp Course 1. Syncope. Etiology unclear. The patient will be monitored on telemetry floor for any cardiac arrhythmias. The patient will be ruled out for any underlying acute coronary syndrome. The patient's brain CT scan was negative for any acute intracranial findings. Carotid Doppler study will be obtained to evaluate for any underlying carotid stenosis. 2D echocardiogram will be done to evaluate the left ventricular fraction and to evaluate for any underlying wall motion abnormalities. The patient will be evaluated by physical therapy. 2. Acute on chronic kidney disease. The patient has underlying history of chronic kidney disease. The patient has worsening renal function at this time. The patient has no evidence of any uremia or a significant hyperkalemia that necessitates any emergent dialysis. Nephrology has been consulted. 3. Essential hypertension. The patient is currently hypotensive. The patient will be adequately hydrated. The patient will be started on PRN antihypertensives in case if he develops any hypertensive episodes. The patient 's EDMUND inhibitors will be put on hold because of worsening renal function. 4. Diabetes mellitus. The patient will be started on sliding scale insulin along with basal insulin and pre-meal insulin. Hemoglobin A1c will be obtained to evaluate the blood glucose control over the past few weeks. 5. Substance abuse. The patient has positive marijuana in urine. He also has positive cocaine. Social Work consult will be obtained. 6. Hyponatremia. Most probably secondary to worsening renal function. The patient will be continued on IV fluid containing isotonic saline. Plan: The patient will be admitted to inpatient telemetry floor. The patient will be started on a carbohydrate controlled diet. The patient will be started on DVT prophylaxis and gastrointestinal prophylaxis. The patient will remain a full code. Activities will be with assist. The rest of the patient's management will be based on the clinical course and the results of diagnostic studies. Based on the patient's clinical presentation, he most probably requires at least 2 midnights' stay for further management and evaluation of his clinical presentation. The case and management of this patient was fully discussed with . Problems: HPI/ROS Admit Date/Time Admit Date/Time Hx of Present Illness Reason for admission: Syncope. This is a 61-year-old male with past medical history of essential hypertension, type 2 diabetes mellitus, chronic pain, drug abuse and deafness who was brought to the emergency room after he had a syncopal episode in his bathroom. As per the patient, he went to have a shower in his bathroom and he felt dizzy and he passed out. The patient does not remember whether he hit his head. The patient's tapwater was overflowing the bathtub. Overflowing of water was noticed by the neighbors and the neighbors came into see the patient. By the time, the neighbors found him he was conscious. However, the patient had multiple episodes of vomiting. Patient denied any chest pain, headache, dyspnea, fevers, chills, diarrhea, hematochezia, melena, hematuria, or dysuria. In the emergency room, the patient was noticed to have a leukocytosis with WBC of 15.2. The patient was noticed to have a BUN and creatinine of 76 and 3.75 respectively. He had a random blood glucose level of 330. The patient's urine drug toxicology was positive for opioids, cocaine, and marijuana. The patient underwent a brain CT scan that was negative for any acute intracranial findings. The patient is a chest x-ray was negative for any acute findings. The patient 12-lead EKG showed normal sinus rhythm. ROS Constitutional: no complaints Eyes: no complaints ENT: other (Hard of hearing) Respiratory: no complaints Cardiovascular: no complaints Gastrointestinal: nausea, vomiting Genitourinary: no complaints Musculoskeletal: no complaints Skin: no complaints Neurologic: dizziness Endocrine: no complaints Lymphatic: no complaints Psychological: no complaints PMH/Family/Social Past Medical History Medical History: diabetes, hypertension, renal disease Past Surgical History Past Surgical Hx: no surgical history Social History Alcohol Use: none Smoking Status: Current every day smoker Drug Use: cocaine, marijuana Exam/Review of Systems Vital Signs Vitals Vital Signs Date Time Temp Pulse Resp B/P Pulse Ox O2 Delivery O2 Flow Rate FiO2 12/05/16 05:15 96 20 96/48 100 Room Air 12/04/16 23:29 97.2 Exam Exam General: Adequately build 61 year-old male lying in bed in no apparent distress. HEENT: Normocephalic, atraumatic. Eyes: Anicteric sclerae, conjunctivae clear. ENT: Nasal septum midline, oral mucosa moist. Neck supple, no JVD noticed. Respiratory: Bilaterally clear breath sounds. No use of accessory muscles of respiration. No adventitious breath sounds. Cardiovascular: S1, S2 heard. No murmurs or gallops. Abdomen: Soft, nontender, and nondistended. Bowel sounds positive in all 4 quadrants. Genitourinary: Deferred. Extremities: No cyanosis, no clubbing, no edema. Peripheral pulses palpable. Neurologic: Hard of hearing in bilateral ears. The patient is awake, alert, and oriented. Skin: Normal skin turgor. No skin rashes. Labs Result Diagram: 12/04/16 2340 12/04/16 2340 Medications Medications Current Medications Atorvastatin Calcium (Lipitor) 10 mg DAILY@21 PO ; Start 12/05/16 at 21:00 Docusate Sodium (Colace) 100 mg BID PO ; Start 12/05/16 at 09:00 Ondansetron HCl 4 mg 4 mg Q6H PRN PO NAUSEA AND/OR VOMITING; Start 12/05/16 at 03:30 Sodium Chloride (NS) 1,000 ml @ 75 mls/hr [id number] IV Last administered on 12/05 04:30; Admin Dose 75 MLS/HR; Start 12/05/16 at 03:15 Ondansetron HCl (Zofran Inj) 4 mg Q6H PRN IV NAUSEA AND/OR VOMITING; Start at 03:30 Acetaminophen (Tylenol Tab) 650 mg Q6H PRN PO PAIN LEVEL 1-3 OR FEVER; Start at 03:30 Docusate Sodium (Colace) 100 mg Q12H PRN PO CONSTIPATION; Start 12/05/16 at 03: 30 Bisacodyl (Dulcolax) 5 mg DAILY PRN PO CONSTIPATION; Start 12/05/16 at 03:30 Pantoprazole (Protonix Iv) 40 mg DAILY@06 IV Last administered on 12/05/16 06: 04; Admin Dose 40 MG; Start 12/05/16 at 06:00 Insulin Glargine (Lantus) 12 unit DAILY@20 SC ; Start 12/05/16 at 20:00 Miscellaneous Information (* Miscellaneous Pharmacy Order) HYPOGLYCEMIA PROTOCOL w... ONCE ONCE XX ; Start 12/05/16 at 10:00; Stop 12/05/16 at 10:01 Miscellaneous Information (* Miscellaneous Pharmacy Order) Discontinue Glyburide , Glipizide,... ONCE ONCE XX ; Start 12/05/16 at 10:00; Stop 12/05/16 at 10:01 Miscellaneous Information (* Miscellaneous Pharmacy Order) Discontinue all previ... ONCE ONCE XX ; Start 12/05/16 at 10:00; Stop 12/05/16 at 10:01 Hydralazine HCl (Apresoline) 10 mg Q6H PRN IV SBP>160; Start 12/05/16 at 10:00 Miscellaneous Information 1 ea NOTE XX ; Start 12/05/16 at 10:00 Glucose (Glutose) 15 gm Q15M PRN PO DECREASED GLUCOSE; Start 12/05/16 at 10:00 Glucose (Glutose) 22.5 gm Q15M PRN PO DECREASED GLUCOSE; Start 12/05/16 at 10: 00 Dextrose (D50w Syringe) 25 ml Q15M PRN IV DECREASED GLUCOSE; Start 12/05/16 at 10:00 Dextrose (D50w Syringe) 50 ml Q15M PRN IV DECREASED GLUCOSE; Start 12/05/16 at 10:00 Glucagon (Glucagen) 1 mg Q15M PRN IM DECREASED GLUCOSE; Start 12/05/16 at 10:00 Glucose (Glutose) 15 gm Q15M PRN BUCCAL DECREASED GLUCOSE; Start 12/05/16 at 10 :00 Calamine (Calamine Lotion) 1 applic Q6 TOP ; Start 12/05/16 at 12:[address] Scan IMPRESSION: No acute findings. Mild diffuse parenchymal volume loss which has progressed compared to the prior. CXR IMPRESSION: No evidence for active cardiopulmonary disease. Twelve-Lead EKG Normal sinus rhythm. LYNDON VANCE NP Dec 05, 2016 10:10 LYNDON VANCE NP Dec 05, 2016 10:10
--- NOTE | 2016-12-05 10:54 | RADRPT ---
PROCEDURE: Carotid ultrasound CLINICAL INDICATION: Syncope, carotid bruits TECHNIQUE: Fajardo scale, color doppler, spectral doppler ultrasound of the bilateral carotid and odalis tebral arteries. This study indirectly references the measurement of the distal ICA diameter as the denominator for s tenosis measurement. Validated velocity measurements with angiographic measurements, velocity criter ia are extrapolated from diameter data as defined by: *Cartoid artery stenosis: fajardo-scale and Doppl er US diagnosis. Society of Radiologists in Ultrasound Consensus Conference. Radiology 2003; 229: 34 0-346. SRU Consensus Conference Criteria for the Diagnosis of Carotid Artery Stenosis* Degree of Stenosis, % ICA PSV, cm/sec Plaque Estimate, % ICA/CCA PSV Ratio Normal <125 None <2.0 <50 <125 <50 <2.0 50 69 125-230 >50 2.0-4.0 >70 but less than near occlusion >230 >50 <4.0 Near occlusion High, low, or undetectable Visible Variable Total occlusion Undetectable Visible, no detectable lumen Not applicable COMPARISON: 01/26/2009 FINDINGS: Location Right CCA77 cm/sec Prox ICA 38 cm/sec Mid ICA43 cm/sec Dist ICA67 cm/sec ECA94 cm/sec ICA/CCA1.0 Left CCA84 cm/sec Prox ICA 51 cm/sec Mid ICA91 cm/sec Dist ICAnot visualized due to tortuosity. ECA84 cm/sec ICA/CCA1.4 Plaque burden: No significant plaque is seen. Antegrade flow is seen within the vertebral arteries bilaterally. IMPRESSION: No evidence of a hemodynamically significant carotid stenosis. RPTAT: AADD .Víctor Beckford MD, MD Date Time Electronically viewed and signed by .Víctor Beckford MD, on 12/05/2016 10:53 .B/
[2016-12-05] MEDS ORDERED: INSULIN ASPART [NOVOLOG] 3 ML PEN SC SCH ×2 (12:00)
[2016-12-05] MEDS ORDERED: morphine 2 MG INJ IV STA (12:14)
[2016-12-05] MEDS ORDERED: ONDANSETRON 4 MG INJ IV STA (12:14)
[2016-12-05 12:30] VITALS: BP 133/107; PULSE 101; RESP 24
[2016-12-05] MEDS ORDERED: morphine 2 MG INJ IV PRN (14:00)
--- NOTE | 2016-12-05 15:35 | RADRPT ---
Echocardiogram Report Patient Name: RAMON AZEVEDO Gender: Male Date: 1955 Study Date: 05-Dec-2016 Substance Abuse Services Director: Vianey Garnica RDCS Location: ER 1 Ref. Physician: LYNDON VANCE Quality: Good Procedures: Transthoracic echocardiogram with complete 2D, M-Mode, and doppler examination. Indications: Evaluate Left Ventricular function. 2D/M Mode Doppler Measurement Value Normal Ranges Measurement Value Normal Ranges LVIDd 2D 3.4 3.5 - 5.6 cm AV Mean Nabeel 0.9 m/sec LVIDs 2D 1.8 2.1 - 4.1 cm AV Mean PG 4.0 mmHg LVPWd 2D 1.1 0.6 - 1.1 cm AV Peak Nabeel 1.4 m/sec IVSd 2D 1.1 0.6 - 1.1 cm AV Peak PG 7.4 mmHg AoR Diam 2D 2.6 2.0 - 3.7 cm AV VTI 21.5 cm EDV 2D 46.0 cm3 MV E Peak Nabeel 0.7 m/sec ESV 2D 5.5 cm3 MV A Peak Nabeel 0.7 m/sec LA Dimen 2D 3.1 2.3 - 4.0 cm MV E/A 1.0 LVOT Diam 2.0 cm MV Decel Time 247 msec MV Decel [place] 3 MV E/A 1.0 TR Peak Nabeel 2.6 m/sec TR Peak PG 35.5 mmHg RVSP 38.5 mmHg Findings Left Ventricle: Normal left ventricular systolic function. Normal left ventricular cavity size. Mild concentric left ventricular hypertrophy. Ejection fraction is visually estimated at 55 %. Tissue Doppler/Mitral Doppler indices are consistent with impaired relaxation (Stage I diastolic dysfunction). Right Ventricle: Normal right ventricular size. Normal right ventricular systolic function. Left Atrium: There is mild enlargement of left atrium. Right Atrium: The right atrium is normal in size. Mitral Valve: Mitral valve leaflets appear mildly thickened. Mild mitral annular calcification. Trace mitral regurgitation. Aortic Valve: No significant aortic stenosis or insufficiency. Aortic cusps appear mildly calcified. Tricuspid Valve: Normal appearance of the tricuspid valve. Unable to obtain RVSP due to minimal presence of tricuspid regurgitation. There is trace tricuspid regurgitation. Pulmonic Valve: Pulmonic valve not well visualized. Pericardium: Normal pericardium with no significant pericardial effusion. Aorta: Normal aortic root. IVC: The IVC is not well visualized. Pulmonary Artery: Not well visualized. Conclusions Normal left ventricular systolic function. Normal left ventricular cavity size. Mild concentric left ventricular hypertrophy. Ejection fraction is visually estimated at 55 %. Tissue Doppler/Mitral Doppler indices are consistent with impaired relaxation (Stage I diastolic dysfunction). No significant valvular stenosis or regurgitation seen. Unable to obtain RVSP due to minimal presence of tricuspid regurgitation. Electronically Signed By: Flako Medeiros 05-Dec-2016 15:34:26 -0700 Patient Name: RAMON AZEVEDO Study Date: 05-Dec-2016 [id number]
--- NOTE | 2016-12-05 16:24 | DS ---
Date/Time of Note Date/Time of Note DATE: 12/05/16 TIME: 16:21 Discharge Summary Admission/Discharge Info Admit Date/Time Discharge Date/Time Discharge Diagnosis 1. Syncope. 2. Acute on chronic kidney disease. 3. Essential hypertension. 4. Diabetes mellitus II. 5. Substance abuse. 6. Hyponatremia. Patient Condition: Fair Procedures Brain CT IMPRESSION: No acute findings. Mild diffuse parenchymal volume loss which has progressed compared to the prior. Carotid Doppler IMPRESSION: No evidence of a hemodynamically significant carotid stenosis. CXR IMPRESSION: No evidence for active cardiopulmonary disease. 2D Echocardiogram Conclusions Normal left ventricular systolic function. Normal left ventricular cavity size. Mild concentric left ventricular hypertrophy. Ejection fraction is visually estimated at 55 %. Tissue Doppler/Mitral Doppler indices are consistent with impaired relaxation (Stage I diastolic dysfunction). No significant valvular stenosis or regurgitation seen. Unable to obtain RVSP due to minimal presence of tricuspid regurgitation. Hx of Present Illness Reason for admission: Syncope. This is a 61-year-old male with past medical history of essential hypertension, type 2 diabetes mellitus, chronic pain, drug abuse, and deafness who was brought to the emergency room after he had a syncopal episode in his bathroom. As per the patient, he went to have a shower in his bathroom and he felt dizzy and that he passed out. The patient does not remember whether he hit his head. The patient's tapwater was overflowing the bathtub. Overflowing of water was noticed by the neighbors and the neighbors came into see the patient. By the time, the neighbors found him he was conscious. However, the patient had multiple episodes of vomiting. Patient denied any chest pain, headache, dyspnea, fevers, chills, diarrhea, hematochezia, melena, hematuria, or dysuria. In the emergency room, the patient was noticed to have a leukocytosis with WBC of 15.2. The patient was noticed to have a BUN and creatinine of 76 and 3.75 respectively. He had a random blood glucose level of 330. The patient's urine drug toxicology was positive for opioids, cocaine, and marijuana. The patient underwent a brain CT scan that was negative for any acute intracranial findings. The patient is a chest x-ray was negative for any acute findings. The patient's 12-lead EKG showed normal sinus rhythm. Hospital Course The patient was admitted for further workup of his syncope. A 2D echocardiogram was ordered. The patient's brain CT scan was negative. The patient's carotid Doppler study was negative for any hemodynamically significant stenosis. The patient's 2D echocardiogram showed preserved left ventricular ejection fraction. Further workup was pending for evaluation of his underlying syncope. Patient's urine drug screen was positive for opioids, cocaine, and marijuana although the patient denied any drug abuse. The patient was also noticed to have acute on chronic kidney injury with underlying azotemia. A nephrology consult was called on this patient. Patient also has underlying diabetes mellitus that was uncontrolled with a random blood glucose level of 330 on admission. The patient also has a history of an underlying essential hypertension. The patient had well-controlled blood pressures throughout the hospital course. The patient was also noticed to have hyponatremia. This could be from underlying acute kidney injury. The patient was waiting in the ER to be transferred to telemetry floor for further evaluation. Meanwhile, the patient left the hospital AGAINST MEDICAL ADVICE. The patient was instructed on the consequences of leaving the hospital AGAINST MEDICAL ADVICE including the possibility of . Nevertheless, the patient left the hospital AGAINST MEDICAL ADVICE. No discharge planning was done since the patient left the hospital AGAINST MEDICAL ADVICE. The case and management of this patient was fully discussed with . Home Meds Active Scripts Ondansetron Hcl* (Zofran*) 4 Mg Tab, 4 MG PO Q6H Y for NAUSEA AND OR VOMITING for 3 Days, TAB Prov:CLAUDINE ZUNIGA DO 12/02/16 Hydroxyzine Hcl* (Hydroxyzine Hcl*) 25 Mg Tablet, 25 MG PO Q8H Y for ITCHING, # 30 TAB Prov:AMAYA VILLAFANA NP 11/04/16 Permethrin* (Elimite*) 5% Cr, 1 APPLIC TOP ONCE, #1 TUB Prov:AMAYA VILLAFANA NP 11/04/16 Hydrocortisone Acetate (Anusol-Hc) 25 Mg Supp.rect, 1 SUPP TX BID Y for HEMORROID PAIN/ITCHING, #12 SUPP.RECT Prov:CHANTELLE COLEMAN PA-C 06/03/16 Omeprazole* (Omeprazole*) 20 Mg Capsule., 20 MG PO DAILY, #30 CAP Prov:CHANTELLE COLEMAN PA-C 06/03/16 Ondansetron (Ondansetron Odt) 4 Mg Tab.rapdis, 4 MG PO Q6H Y for NAUSEA AND/OR VOMITING, #10 TAB Prov:CHANTELLE COLEMANC 06/03/16 Acetaminophen* (Tylophen*) 500 Mg Capsule, 1 CAP PO Q6H Y for PAIN AND OR ELEVATED TEMP, #20 CAP Prov:KALA CAMARA PRODUCT DEVELOPMENT WORKER 04/18/16 Calamine* (Calamine*) 120 Ml Lotion, 1 APPLIC TOP Q6 for 5 Days, #120 EA 0 Refills Prov:ELAINE NEFFC 01/25/16 Hydrocodone Bit-Acetaminophen* (Printer*) 5-325 Mg Tab, 1 TAB PO Q6 Y for PAIN, # 20 TAB Prov:AMAYA VILLAFANA PRODUCT DEVELOPMENT WORKER 11/07/15 Ibuprofen* (Motrin*) 600 Mg Tab, 600 MG PO Q6, #30 TAB Prov:HAKEEM FORDC 10/30/15 Diphenhydramine Hcl* (Benadryl*) 25 Mg Cap, 25 MG PO Q6, #14 CAP Prov:TARAS AMBROSIOC 07/09/15 Glipizide* (Glipizide ER*) 5 Mg/Bottle Tab.osm.24, 5 MG PO DAILY, #30 TAB Prov:JESSA GARRISON DO 03/14/15 Omeprazole* (Omeprazole*) 20 Mg Capsule.dr, 20 MG PO DAILY, #30 CAP Prov:JESSA GARRISON DO 03/14/15 Docusate Sodium* (Colace*) 100 Mg Capsule, 100 MG PO BID, #60 CAP Prov:JESSA GARRISON DO 03/14/15 Atorvastatin (Atorvastatin) 10 Mg Tablet, 10 MG PO DAILY, #30 TAB Prov:JESSA GARRISON DO 03/14/15 Insulin Glargine,Hum.rec.anlog (Lantus Solostar) 100 Units/Ml Pen, 32 UNIT SC QHS, #30 DOSE Prov:JESSA GARRISON DO 03/14/15 Reported Medications Famotidine* (Famotidine*) 40 Mg Tablet, 40 MG PO DAILY, TAB 05/13/14 Lisinopril* (Lisinopril*) 10 Mg Tablet, 10 MG PO DAILY 06/17/11 Discontinued Reported Medications Gabapentin* (Neurontin*) 300 Mg Capsule, 300 MG PO TID 08/22/12 Discontinued Scripts Guaifenesin* (Robitussin*) 100 Mg/5 Ml Syrup, 100 MG PO Q4H Y for COUGH, #120 ML Prov:KALA CAMARA PRODUCT DEVELOPMENT WORKER 04/18/16 Sodium Chloride (Saline Nasal Mist) 126 Ml Mist, 2 SPRAY NASAL Q2H Y for NASAL CONGESTION, #1 BOTTLE Prov:KALA CAMARA PRODUCT DEVELOPMENT WORKER 04/18/16 Permethrin (Permethrin) 120 Ml Liquid, 120 ML TP QHS for 1 Day, #120 ML 0 Refills Prov:ELAINE NEFF PA-C 01/25/16 Diphenhydramine Hcl* (Benadryl*) 25 Mg Cap, 25 MG PO Q6 Y for ITCHING/RASH for 7 Days, #30 TAB 0 Refills Prov:ELAINE NEFF PA-C 01/25/16 Ondansetron Hcl* (Zofran* ODT) 4 mg -ODT Tab.disper, 4 MG PO Q8 Y for NAUSEA AND /OR VOMITING, #30 TAB Prov:AMAYA VILLAFANA NP 11/07/15 Hydrocortisone* Topical (Hydrocortisone* Topical) 1%-28.35 Gm Cream..g., 1 APPLIC TOP Q6 Y for ITCHING, #1 TUB Prov:TARAS AMBROSIO PA-C 07/09/15 Loratadine* (Claritin*) 10 Mg Capsule, 10 MG PO DAILY, #30 CAP Prov:JESSA GARRISON DO 03/14/15 Sitagliptin* (Januvia*) 50 Mg Tablet, 50 MG PO DAILY, #30 TAB Prov:JESSA GARRISON DO 03/14/15 Ibuprofen* (Ibuprofen*) 600 Mg Tablet, 600 MG PO Q6, #30 TAB Prov:JESSA GARRISON DO 03/14/15 Pantoprazole* (Protonix*) 40 Mg Tablet., 40 MG PO DAILY, #20 TAB Prov:ANY LARSON MD 03/10/15 Follow-up Plan Patient left the hospital AGAINST MEDICAL ADVICE. Primary Care Provider Not On Staff Doctor Time spent on discharge: < 30 minutes Pending Labs Laboratory Tests Test 12/04/16 23:40 12/04/16 23:54 12/05/16 01:31 12/05/16 02:39 White Blood Count 15.210^3/ul (4.8-10.8) Red Blood Count 4.9510^6/ul (4.70-6.10) Hemoglobin 14.4g/dl (14.0-18.0) Hematocrit 44.6% (42.0-52.0) Mean Corpuscular Volume 90.1fl (82.0-101.0) Mean Corpuscular Hemoglobin 29.1pg (29.0-33.0) Mean Corpuscular Hemoglobin Concent 32.3g/dl (32.0-37.0) Red Cell Distribution Width 13.7% (11.5-14.5) Platelet Count 97091^3/UL (140-415) Mean Platelet Volume 11.5fl (7.4-10.4) Neutrophils % 71.1% (39.0-77.0) Lymphocytes % 17.0% (15.0-51.0) Monocytes % 10.2% (0.0-11.0) Eosinophils % 0.2% (0.0-7.0) Basophils % 0.4% (0.0-2.0) Nucleated Red Blood Cells % 0.0/100WBC (0.0-0.0) Neutrophils # 10.810^3/ul (1.6-7.5) Lymphocytes # 2.610^3/ul (0.8-2.9) Monocytes # 1.610^3/ul (0.3-0.9) Eosinophils # 0.010^3/ul (0.0-0.5) Basophils # 0.110^3/ul (0.0-0.1) Nucleated Red Blood Cells # 0.010^3/ul (0.0-0.0) Prothrombin Time 13.1Sec (12.2-14.2) Prothrombin Time Ratio 1.0 INR International Normalized Ratio 0.99 Activated Partial Thromboplast Time 26.6Sec (25.0-35.0) Sodium Level 130mmol/L (135-144) Potassium Level 4.8mmol/L (3.5-5.1) Chloride Level 96mmol/L (97-110) Carbon Dioxide Level 23mmol/L (21-31) Anion Gap 16 (8-16) Blood Urea Nitrogen 76mg/dl (7-20) Creatinine 3.75mg/dl (0.61-1.24) Glucose Level 330mg/dl (70-220) Calcium Level 10.7mg/dl (8.4-10.2) Troponin I < 0.012ng/ml (0.00-0.12) Ethyl Alcohol Level < 10.0mg/dl Urine Opiates Screen Positive (NEGATIVE) Urine Barbiturates Negative (NEGATIVE) Urine Amphetamines Screen Negative (NEGATIVE) Urine Benzodiazepines Screen Negative (NEGATIVE) Urine Cocaine Screen Positive (NEGATIVE) Urine Cannabinoids Positive (NEGATIVE) Bedside Glucose 257mg/dL (70-220) Bedside Urine pH (LAB) 5.5 (5.0-8.5) Bedside Urine Protein (LAB) Trace (NEGATIVE) Bedside Urine Glucose (UA) Negative (NEGATIVE) Bedside Urine Ketones (LAB) Negative (NEGATIVE) Bedside Urine Blood Negative (NEGATIVE) Bedside Urine Nitrite (LAB) Negative (NEGATIVE) Bedside Urine Leukocyte Esterase (L Negative (NEGATIVE) Test 12/05/16 11:17 Bedside Glucose 192mg/dL (70-220) LYNDON VANCE NP Dec 05, 2016 16:24 Bedside Glucose 192mg/dL (70-220) LYNDON VANCE NP Dec 05, 2016 16:24
[2016-12-05] MEDS ORDERED: INSULIN GLARGINE [LANtus] 3 ML PEN SC SCH ×2 (20:00→21:00)
[2016-12-05] MEDS ORDERED: ATORVASTATIN 10 MG TAB PO SCH (21:00)
[2016-12-05] MEDS ORDERED: HEPARIN 5,000 UNIT/0.5 ML VIAL SC SCH (21:00)
== END 2016-12-05 21:57 | disposition left against medical advice (07) ==
LOC: FTE 22:55 → MS4 12-05 02:47 → UNDOADMIN 12-05 02:47
DX: R55 Syncope and collapse (principal); D72.829 Elevated white blood cell count, unspecified; I12.0 Hypertensive chronic kidney disease with stage 5 chronic kidney disease or end stage renal disease; N18.5 Chronic kidney disease, stage 5; E11.22 Type 2 diabetes mellitus with diabetic chronic kidney disease; F17.210 Nicotine dependence, cigarettes, uncomplicated; Z79.4 Long term (current) use of insulin
CPT/HCPCS: 70450; 71010; 80048; 80306; 80307; 81003; 82962; 84484; 85025; 85610; 85730; 93005; 93306; 93880; C9113; J1815; J2270; J2405; J7030; Z7610; 36415; 96372; 96374; 96375

== ENCOUNTER 2016-12-08 03:43 | Inpatient (IN) | payer OTHER ==
[~2016-12-08] VITALS: Ht 160 cm; Wt 64.8 kg
[~2016-12-08 03:43] MED LIST changes: -GABA300C PO; -GUAI-637 PO; -HC1C30 TOP; -LORA10CA PO; -ONDA4TAB35 PO; -PANT40TA3 PO; -PERM120L5 TP; -SITA50TA2 PO; -SODI126M NASAL
[2016-12-08] MEDS ORDERED: ONDANSETRON 4 MG INJ IV STA (04:10)
[2016-12-08] MEDS ORDERED: SOD CHLORIDE 0.9% 1,000 ML IV ONE (04:30)
[2016-12-08 04:48] LABS: ADD SCAN DIFF NO
[2016-12-08 04:51] LABS: ABNORMAL IP MESSAGE 1; BASOPHILS % 0.1 % (0.0-2.0); EOSINOPHILS % 0.1 % (0.0-7.0); HEMATOCRIT 41.1 % (42.0-52.0); HEMOGLOBIN 13.7 g/dl (14.0-18.0); LYMPHOCYTES # 2.1 10^3/ul (0.8-2.9); LYMPHOCYTES % 13.8 % (15.0-51.0); MEAN CORPUSCULAR HGB CONC 33.3 g/dl (32.0-37.0); MEAN CORPUSCULAR VOLUME 89.9 fl (82.0-101.0); MEAN PLATELET VOLUME 10.6 fl (7.4-10.4); MONOCYTE # 1.6 10^3/ul (0.3-0.9); MONOCYTES % 10.2 % (0.0-11.0); NEUTROPHIL # 11.4 10^3/ul (1.6-7.5); NEUTROPHILS % 74.7 % (39.0-77.0); PLATELET COUNT 336 10^3/UL (140-415); RED BLOOD COUNT 4.57 10^6/ul (4.70-6.10); RED CELL DISTRIBUTION WIDTH 13.1 % (11.5-14.5); WHITE BLOOD COUNT 15.2 10^3/ul (4.8-10.8)
--- NOTE | 2016-12-08 04:52 | RADRPT ---
PROCEDURE: Abdominal ultrasound, limited. CLINICAL INDICATION: Abdominal pain. TECHNIQUE: Multiple real-time images were acquired of the patient's right upper abdomen utilizing a high resolution transducer. COMPARISON: 07/26/2014. FINDINGS: The liver demonstrates normal echogenicity and size measuring 15.2 cm. There is no focal mass or in trahepatic biliary ductal dilatation. The portal vein is patent. The gallbladder is not distended. A single echogenic gallstone is. There is no pericholecystic fluid or gallbladder wall thickening . The common bile duct measures 3.8 mm in maximal dimension. The visualized portions of the pancre as are unremarkable. No free fluid is identified. The right kidney is normal size and echogenicity measuring 10.1 cm. There is a right renal cyst antonina suring 3.0 x 2.5 x 2.2 cm. There is no echogenic calculus identified. There is no obstructive urop athy. IMPRESSION: Cholelithiasis without ultrasound evidence of cholecystitis. Right renal cyst. .Carlitos Zayas MD, Date Time Electronically viewed and signed by .Carlitos Zayas MD, MD on 12/08/2016 04:52 .T/
[2016-12-08 04:59] LABS: ADD UMIC NO; UR ASCORBIC ACID 20 mg/dL (NEGATIVE); UR BILIRUBIN (Dip) NEGATIVE (NEGATIVE); UR BLOOD (Dip) NEGATIVE (NEGATIVE); UR CLARITY CLEAR (CLEAR); UR COLOR YELLOW (YELLOW); UR GLUCOSE (Dip) 3+ mg/dL (NEGATIVE); UR KETONES (Dip) NEGATIVE (NEGATIVE); UR LEUKOCYTE ESTERASE (Dip) NEGATIVE Leu/ul (NEGATIVE); UR NITRITE (Dip) NEGATIVE (NEGATIVE); UR SPECIFIC GRAVITY (Dip) 1.021 (1.003-1.030); UR TOTAL PROTEIN (Dip) NEGATIVE (NEGATIVE); UR UROBILINOGEN (Dip) NEGATIVE (NEGATIVE)
[2016-12-08 05:08] LABS: ALBUMIN 5.2 g/dl (3.3-4.9); ALBUMIN/GLOBULIN RATIO 1.4; BILIRUBIN,INDIRECT 0.8 mg/dl (0-1.1); BILIRUBIN,TOTAL 0.8 mg/dl (0.2-1.3); CREATININE 2.22 mg/dl (0.61-1.24); POTASSIUM 4.5 mmol/L (3.5-5.1); TOTAL PROTEIN 8.9 g/dl (6.1-8.1)
[2016-12-08] MEDS ORDERED: PIPER-TAZO 3.375 GM IV (PMX) 100 ML IVPB ONE (05:30)
[2016-12-08] MEDS ORDERED: morphine 4 MG/ML VIAL IV STA (05:42)
[2016-12-08] MEDS ORDERED: SOD CHLORIDE 0.9% 1,000 ML IV SCH (06:52)
[2016-12-08] MEDS ORDERED: morphine 2 MG INJ IV PRN (07:00)
[2016-12-08] MEDS ORDERED: ACETAMINOPHEN 325 MG TAB PO PRN ×2 (07:00→10:30)
[2016-12-08] MEDS ORDERED: ONDANSETRON 4 MG INJ IV PRN (07:00)
[2016-12-08] MEDS ORDERED: NACL 0.9% 3 ML SYG IV SCH ×2 (07:00→10:30)
[2016-12-08 08:41] LABS: CHOL/HDL RATIO 4.6 RATIO; MAGNESIUM 2.1 mg/dl (1.7-2.5)
[2016-12-08 08:58] LABS: T3 UPTAKE 27.9 % (23.5-40.5)
[2016-12-08 09:12] LABS: THYROID STIMULATING HORMONE 0.261 MIU/L (0.465-4.680)
[2016-12-08 10:07] VITALS: BP 130/61; RESP 20
[2016-12-08] MEDS ORDERED: BISACODYL 10 MG SUPP PR PRN (10:30)
[2016-12-08] MEDS ORDERED: ACETAMINOPHEN 650 MG SUPP PR PRN (10:30)
[2016-12-08] MEDS ORDERED: MAGNESIUM HYDROXIDE 30ML CUP PO PRN (10:30)
[2016-12-08] MEDS ORDERED: DOCUSATE SODIUM 100 MG CAP PO PRN (10:30)
[2016-12-08] MEDS ORDERED: HYDROCODONE/APAP (5/325) TAB PO PRN ×3 (10:30)
[2016-12-08] MEDS ORDERED: hydrOXYzine HCL 25 MG TAB PO PRN (10:30)
[2016-12-08] MEDS ORDERED: GLUCAGON 1 MG INJ IM PRN (11:00)
[2016-12-08] MEDS ORDERED: GLUCOSE GEL 15 GRAM TUBE PO PRN ×2 (11:00)
[2016-12-08] MEDS ORDERED: GLUCOSE GEL 15 GRAM TUBE BUCCAL PRN (11:00)
[2016-12-08] MEDS ORDERED: DEXTROSE 50% 50 ML SYRINGE IV PRN ×2 (11:00)
[2016-12-08 11:07] VITALS: Ht 160 cm; Wt 64.8 kg
--- NOTE | 2016-12-08 11:56 | HP ---
Date/Time of Note Date/Time of Note DATE: 12/08/16 TIME: 11:52 Assessment/Plan VTE Prophylaxis VTE Prophylaxis Intervention: SCD's Assessment/Plan Chief Complaint/Hosp Course Impression and plan 1. Abdominal pain. Will check CT scan of the abdomen. Suspect diabetic gastroparesis considering uncontrolled blood glucose. Will start on Reglan. Continue IV fluids. Keep n.p.o. for now. 2. Suspect GERD. Will start on Protonix. Acute kidney injury. 3. Diabetes. Will start on insulin regimen. Will adjust as needed. Will get life educator. 4. Essential hypertension. Will provide with antihypertensives and adjust needed. 5. Dyslipidemia. Noted with high triglycerides. Will resume statin medications was able to tolerate oral intake. 6. Acute kidney injury on likely CKD.. Start IV fluids. Will get worm grower to follow. Admission process 40 minutes Discussed plan of care with Dr. Yeager Problems: HPI/ROS Admit Date/Time Admit Date/Time Dec 08, 2016 at 06:00 Hx of Present Illness This is a 61-year-old male with history of hypertension, dyslipidemia, diabetes , chronic pain, CKD, CHF with EF of 55% with diastolic dysfunction who came to [facility] due to reports of abdominal pain. Of note patient was recently hospitalized on 09/28/2016 for reported syncope but did leave AGAINST MEDICAL ADVICE at that day. He now reports having abdominal pain for 7 days duration. He does report he has some associated nonbilious nonbloody emesis and hasn't had a bowel movement for 7 days. He reports subjective fevers. Reports his abdominal pain starts in his right lower abdominal quadrant and radiates his epigastric area with some acid reflux symptoms. He did have imaging done on December 08, 2016 with gallbladder ultrasound showing cholelithiasis without evidence of choledocholithiasis or cholecystitis. Additionally he did have also white count of 15.2 and 7 transaminitis as well. He did have a creatinine of 2.22 and a glucose of 334 with A1c of 8.3. Patient remains afebrile during admission. He does still have some abdominal pain. We will evaluate him for the aformentiond issues ROS 12 point review of systems obtained and entirely negative except that mentioned in the history of present illness PMH/Family/Social Past Medical History This is a 61-year-old male with history of hypertension, dyslipidemia, diabetes , chronic pain, CKD, CHF with EF of 55% with diastolic dysfunction Past Surgical History Past Surgical Hx: no surgical history Social History Smoking Status: Current every day smoker Exam/Review of Systems Vital Signs Vitals Vital Signs Date Time Temp Pulse Resp B/P Pulse Ox O2 Delivery O2 Flow Rate FiO2 12/08/16 10:07 98.9 77 20 130/61 100 12/08/16 08:15 Room Air Exam Constitutional: alert, oriented Neck: supple, No jvd Respiratory: clear to auscultation Cardiovascular: other (Regular rate) Gastrointestinal: soft, tender Musculoskeletal: nl extremities to inspection, nl gait and stance Extremities: No edema Neurological: TREE FELLER II-XII intact, nl mental status, nl speech Labs Result Diagram: 12/08/1643112/08/16431 Medications Medications Current Medications Acetaminophen (Tylenol Tab) 650 mg Q6H PRN PO PAIN LEVEL 1-3 OR FEVER Last administered on 12/08/16t 09:12; Admin Dose 650 MG; Start 12/08/16 at 07:00 Pantoprazole (Protonix Iv) 40 mg DAILY@06 IV ; Start 12/09/16 at 06:00 Atorvastatin Calcium (Lipitor) 10 mg DAILY PO ; Start 12/09/16 at 09:00 Calamine (Calamine Lotion) 1 applic Q6 TOP ; Start 12/08/16 at 12:00 Diphenhydramine HCl (Benadryl) 25 mg Q6 PO ; Start 12/08/16 at 12:00 Docusate Sodium (Colace) 100 mg BID PO ; Start 12/08/16 at 21:00 Hydroxyzine HCl (Atarax) 25 mg Q8H PRN PO ITCHING; Start 12/08/16 at 10:30 Insulin Glargine (Lantus) 32 unit QHS SC ; Start 12/08/16 at 21:00 Lisinopril 10 mg 10 mg DAILY PO ; Start 12/09/16 at 09:00 Sodium Chloride (NS) 1,000 ml @ 100 mls/hr Q10H IV ; Start 12/08/16 at 10:27 Ondansetron HCl (Zofran Inj) 4 mg Q6H PRN IV NAUSEA AND/OR VOMITING; Start at 10:30 Acetaminophen (Tylenol Tab) 650 mg Q6H PRN PO PAIN LEVEL 1-3 OR FEVER; Start at 10:30 Acetaminophen (Tylenol Supp) 650 mg Q6H PRN [place] PAIN LEVEL 1-3 OR FEVER; Start 12/08/16 at 10:30 Acetaminophen/ Hydrocodone Bitart ([place] (5/325)) 1 tab Q6H PRN PO MODERATE PAIN LEVEL 4-6; Start 12/08/16 at 10:30 Acetaminophen/ Hydrocodone Bitart ([place] (5/325)) 2 tab Q6H PRN PO SEVERE PAIN LEVEL 7-10; Start 12/08/16 at 10:30 Morphine Sulfate (morphine) 2 mg Q4H PRN IV SEVERE PAIN LEVEL 7-10; Start 12/08 at 10:30 Docusate Sodium (Colace) 100 mg Q12H PRN PO CONSTIPATION; Start 12/08/16 at 10: 30 Magnesium Hydroxide (Milk Of Mag) 30 ml DAILY PRN PO CONSTIPATION; Start at 10:30 Bisacodyl (Dulcolax Supp) 10 mg DAILY PRN [place] CONSTIPATION; Start 12/08/16 at 10 :30 Diagnostic Test (Pha) (Accu-Chek) 1 ea 02 XX ; Start 12/09/16 at 02:00 Miscellaneous Information 1 ea NOTE XX ; Start 12/08/16 at 11:00 Glucose (Glutose) 15 gm Q15M PRN PO DECREASED GLUCOSE; Start 12/08/16 at 11:00 Glucose (Glutose) 22.5 gm Q15M PRN PO DECREASED GLUCOSE; Start 12/08/16 at 11: 00 Dextrose (D50w Syringe) 25 ml Q15M PRN IV DECREASED GLUCOSE; Start 12/08/16 at 11:00 Dextrose (D50w Syringe) 50 ml Q15M PRN IV DECREASED GLUCOSE; Start 12/08/16 at 11:00 Glucagon (Glucagen) 1 mg Q15M PRN IM DECREASED GLUCOSE; Start 12/08/16 at 11:00 Glucose (Glutose) 15 gm Q15M PRN BUCCAL DECREASED GLUCOSE; Start 12/08/16 at 11 :00 Metoclopramide HCl (Reglan) 5 mg Q6 IV ; Start 12/08/16 at 12:00 Pantoprazole (Protonix Iv) 40 mg ONCE ONCE IV ; Start 12/08/16 at 12:00; Stop 12/08/16 at 12:01 MARIVEL MOORE Dec 08, 2016 11:56
[2016-12-08] MEDS ORDERED: PANTOPRAZOLE 40 MG INJ IV ONE (12:00)
[2016-12-08] MEDS: DIPHENHYDRAMINE 25 MG CAP PO SCH ×2 (12:00→17:19)
[2016-12-08] MEDS: CALAMINE 170 ML LOT TOP SCH ×2 (12:07→17:44)
[2016-12-08] MEDS: SOD CHLORIDE 0.9% 1,000 ML IV SCH ×2 (12:07→22:29)
[2016-12-08] MEDS: METOCLOPRAMIDE 10 MG INJ IV SCH ×2 (12:07→17:44)
[2016-12-08] MEDS: INSULIN ASPART [NOVOLOG] 3 ML PEN SC SCH ×3 (12:24→21:00)
[2016-12-08 13:20] VITALS: BP 113/65; RESP 20
[2016-12-08] MEDS: ONDANSETRON 4 MG INJ IV PRN (15:29)
[2016-12-08] MEDS: morphine 2 MG INJ IV PRN ×3 (15:30→23:48)
--- NOTE | 2016-12-08 18:40 | RADRPT ---
PROCEDURE: CT Abdomen and Pelvis without contrast CLINICAL INDICATION: Pain, history of choledocholithiasis TECHNIQUE: Transaxial images were obtained through the abdomen and pelvis on a multi-slice scanner without the intravenous contrast administration. No oral contrast had previously been given. Sagit sg and coronal re-formations were subsequently reconstructed. One or more of the following dose reduction techniques were used: - Automated exposure control. - Adjustment of the mA and/or kV according to patient size. - Use of iterative reconstruction technique. Radiation dose: CTDIvol = 9.12 mGy; DLP = 552.22 mGy-cm. COMPARISON: No prior studies are available for comparison. FINDINGS: Lung bases: The visualized lung bases appear unremarkable. Liver: Normal in size and in attenuation. There is no focal lesion. Gallbladder: The wall is not thickened. No radiopaque stones are identified. Bile ducts: The intra and extrahepatic bile ducts are normal in caliber. Pancreas: Appears normal with no mass or inflammation evident. Spleen: Normal in size with no focal lesion. Adrenals: Normal with no mass identified. Kidneys, ureters and bladder: A 2.4 cm lesion is seen to extend exophytically off the inferior pole right kidney measuring 2.4 cm in diameter and 23 HU in density. A 1.3 cm in diameter simple-appearin g lesion is seen to extend exophytically off the inferior pole right kidney laterally which measures 24 HU. A 2.2 cm exophytic lesion is seen extend laterally off the mid pole of the left kidney jacob uring 2.2 cm in cross diameter and measuring 24 HU. A 7 mm in diameter nodular lesion is seen at th e lateral inferior pole left kidney measuring approximate 72 HU. A 1 mm calcification is seen withi n the medial superior pole right kidney. There is no hydronephrosis. There is bilateral mild perin ephric stranding. The ureters are normal in caliber and no ureteroliths are identified. The bladder appears unremarkable. Reproductive organs: The prostate is mildly prominent. Stomach and bowel: The stomach appears unremarkable. There is no evidence of bowel obstruction or i nflammation. Appendix: A normal-appearing retrocecal vermiform appendix is identified. Peritoneum: No free intraperitoneal fluid or air is identified. There is a small fat containing left inguinal hernia. Several calcifications project through the in traperitoneal fat, one measuring 1 cm in diameter is seen superior to the tail of the pancreas and p osterior to the stomach and to are seen within the pelvis posterior to the bladder one on the left a nd one on the right. These could represent calcified nodes. Aorta: Normal in caliber with no aneurysmal dilatation. There is mild atherosclerotic vascular calci fication. IVC: Mild degenerative changes are seen about the hip joints Lymph nodes: The possible calcified intraperitoneal nodes are mentioned above. Osseous structures: There is grade 1 anterolisthesis of L4-L5 associated degenerative disk endplate and facet changes with stenosis to the bilateral nerve root canals this level. Mild degenerative hip joints are noted. IMPRESSION: 1. A 2.4 cm lesion extends exophytically inferiorly off the inferior pole right kidney, a 1.3 cm le siva extends exophytically, posteriorly off the inferior pole right kidney, and a 2.2 cm lesion exte nsive exophytically laterally off the mid pole of the left kidney all measuring approximately 24 HU. These could represent solid neoplasms. Correlation with a three-phase CT scan of the abdomen with contrast may be useful to further characterize. A 7 mm subcapsular nodule is seen at the lateral in ferior pole left kidney and a 2 mm punctate calcification is seen within the superior pole left kidn ey. There is mild perinephric stranding but no evidence of urinary outflow obstruction with the ure ters and bladder appearing unremarkable. 2. There is no evidence of bowel obstruction or inflammation with a normal-appearing vermiform appe ndix. 3. There is no free intraperitoneal fluid or air. 3 calcifications are seen within the intraperito ant fat which may represent calcified nodes to are seen in the pelvis and 1 is seen posterior to th e stomach and superior to the tail of the pancreas with the largest measuring 4. Mildly prominent prostate. 5. Small fat containing left inguinal hernia. 6. Grade 1 anterolisthesis of L4 and L5 with degenerative disk changes along with a disk bulge and with degenerative endplate and facet changes associated with stenosis to the bilateral nerve root ca nals at this level. Findings of bilateral renal masses for which further evaluation by means of a three-phase CT with co ntrast is recommended were telephoned by Candelario Preston MD to JOSE L Ribeiro 12/08/2016 at 1500 hours. S he was asked to alert the nurse practitioner ordering the study. Various attempts were made to conta farrah Aggarwal NP, in order to convey results. The extension I was given did not work. [facility]ipping machine operator paged overhead, unsuccessfully. Vianey Preston Physician Date Time Electronically viewed and signed by Vianey Preston Physician on 12/08/2016 15:27 /
[2016-12-08 19:35] VITALS: BP 156/71; RESP 20
[2016-12-08] MEDS: DOCUSATE SODIUM 100 MG CAP PO SCH (21:00)
[2016-12-08] MEDS: INSULIN GLARGINE [LANtus] 3 ML PEN SC SCH (21:09)
[2016-12-09] MEDS ORDERED: DIPHENHYDRAMINE 50 MG INJ IM SCH
[2016-12-09] MEDS: METOCLOPRAMIDE 10 MG INJ IV SCH ×4 (00:46→17:58)
[2016-12-09] MEDS: CALAMINE 170 ML LOT TOP SCH ×4 (00:46→17:58)
[2016-12-09] MEDS: DIPHENHYDRAMINE 50 MG INJ IV SCH ×4 (01:22→18:53)
[2016-12-09] MEDS: ACCU-CHEK XX SCH (02:00)
[2016-12-09 02:23] VITALS: BP 151/74; RESP 20
[2016-12-09] MEDS: SOD CHLORIDE 0.9% 1,000 ML IV SCH ×2 (02:39→17:26)
[2016-12-09] MEDS: morphine 2 MG INJ IV PRN ×4 (04:40→19:40)
[2016-12-09] MEDS: PANTOPRAZOLE 40 MG INJ IV SCH (05:20)
[2016-12-09] MEDS ORDERED: PANTOPRAZOLE 40 MG INJ IV SCH (06:00)
[2016-12-09 06:23] LABS: ADD SCAN DIFF NO
[2016-12-09 06:28] LABS: BASOPHILS % 0.2 % (0.0-2.0); EOSINOPHILS # 0.1 10^3/ul (0.0-0.5); EOSINOPHILS % 0.8 % (0.0-7.0); HEMATOCRIT 45.2 % (42.0-52.0); HEMOGLOBIN 14.9 g/dl (14.0-18.0); LYMPHOCYTES % 22.5 % (15.0-51.0); MEAN CORPUSCULAR HEMOGLOBIN 29.4 pg (29.0-33.0); MEAN CORPUSCULAR VOLUME 89.3 fl (82.0-101.0); MEAN PLATELET VOLUME 12.2 fl (7.4-10.4); MONOCYTE # 1.1 10^3/ul (0.3-0.9); MONOCYTES % 8.5 % (0.0-11.0); NEUTROPHIL # 8.9 10^3/ul (1.6-7.5); NEUTROPHILS % 67.4 % (39.0-77.0); RED BLOOD COUNT 5.06 10^6/ul (4.70-6.10); RED CELL DISTRIBUTION WIDTH 13.2 % (11.5-14.5); WHITE BLOOD COUNT 13.2 10^3/ul (4.8-10.8)
[2016-12-09 06:45] LABS: PLATELET COUNT 141 10^3/UL (140-415)
[2016-12-09 06:54] LABS: ALBUMIN 4.6 g/dl (3.3-4.9); ALBUMIN/GLOBULIN RATIO 1.06; BILIRUBIN,INDIRECT 0.6 mg/dl (0-1.1); BILIRUBIN,TOTAL 0.6 mg/dl (0.2-1.3); CALCIUM 9.8 mg/dl (8.4-10.2); CREATININE 1.46 mg/dl (0.61-1.24); POTASSIUM 3.8 mmol/L (3.5-5.1); TOTAL PROTEIN 8.9 g/dl (6.1-8.1)
[2016-12-09 07:02] LABS: CHOL/HDL RATIO 3.9 RATIO; MAGNESIUM 1.7 mg/dl (1.7-2.5); PHOSPHORUS 3.4 mg/dl (2.5-4.9)
[2016-12-09 07:15] LABS: T3 UPTAKE 29.1 % (23.5-40.5)
[2016-12-09 07:24] VITALS: BP 145/90; RESP 20
[2016-12-09 07:28] LABS: THYROID STIMULATING HORMONE 0.778 MIU/L (0.465-4.680)
[2016-12-09] MEDS: INSULIN ASPART [NOVOLOG] 3 ML PEN SC SCH ×4 (08:15→21:00)
[2016-12-09] MEDS: LISINOPRIL 10 MG TAB PO SCH (08:40)
[2016-12-09] MEDS: ATORVASTATIN 10 MG TAB PO SCH (08:40)
[2016-12-09] MEDS: DOCUSATE SODIUM 100 MG CAP PO SCH ×2 (08:40→21:20)
--- NOTE | 2016-12-09 10:00 | PN ---
Date/Time of Note Date/Time of Note DATE: 12/09/16 TIME: 09:49 Assessment/Plan VTE Prophylaxis VTE Prophylaxis Intervention: SCD's Lines/Catheters Urinary Cath still in place: No Assessment/Plan Chief Complaint/Hosp Course Impression and plan 1. Abdominal pain. Will check CT scan of the abdomen. Suspect possible diabetic gastroparesis considering uncontrolled blood glucose. Continue on Reglan and IV fluids.Of note patient did have CT scan of the abdomen that did show 2.4 similar lesion extending exophytically inferiorly off the inferior pole right kidney and a 1.3 cm lesion extends exophytically posteriorly off the inferior pole the right kidney and a 2.2 similar lesion extensive exophytically laterally off the midpole of the left kidney all measuring approximately 24 HU suspect for neoplasms was notified per RN 12/08/16 around 1500 to call radiology for follow up and call down to radiology for follow-up on CT scan report was done. never received a call back from radiologist Dr. Preston.CT scan was reviewed and three-phase CT scan of the abdomen with contrast was ordered. We will follow- up with result. 2. Suspect GERD. Will start on Protonix. 3. Diabetes. Will start on insulin regimen. Will adjust as needed. graphics intern was consulted. Will follow up with recommendations 4. Essential hypertension. Will provide with antihypertensives and adjust needed. 5. Dyslipidemia. Noted with high triglycerides. Will resume statin medications was able to tolerate oral intake. 6. Acute kidney injury on likely CKD.. Improving at present. Suspect dehydration. Will get news assignment editor pending clinical course. Disposition and plan: Follow-up on three-phase CT of abdomen and pelvis with contrast. Continue with analgesics. Will try liquid diet and advance as tolerated. Further recommendations per clinical Discussed plan of care with Dr. Yeager Problems: Subjective 24 Hr Interval Summary Free Text/Dictation Still reports having some abdominal pain at this time. No nausea vomiting reported. Exam/Review of Systems Vital Signs Vitals Vital Signs Date Time Temp Pulse Resp B/P Pulse Ox O2 Delivery O2 Flow Rate FiO2 12/09/16 07:24 99.0 88 20 145/90 98 12/08/16 08:15 Room Air Intake and Output 12/08/16 12/08/16 12/09/16 15:00 23:00 07:00 Intake Total 420 ml 980 ml Output Total 550 ml Balance -130 ml 980 ml Exam Constitutional: alert, oriented Neck: supple, No jvd Respiratory: clear to auscultation Cardiovascular: other (Regular rate to tachycardic) Gastrointestinal: soft, tender Extremities: No edema Neurological: NETWORK OPERATIONS SPECIALIST II-XII intact, nl mental status, nl speech Results Result Diagram: 12/09/16 0531 12/09/16 0531 Results 24 hrs Laboratory Tests Test 12/08/16 12:19 12/08/16 17:48 12/08/16 21:06 12/09/16 02:35 Bedside Glucose 223 H 180 177 118 Test 12/09/16 05:31 12/09/16 08:01 White Blood Count 13.2 H Red Blood Count 5.06 Hemoglobin 14.9 Hematocrit 45.2 Mean Corpuscular Volume 89.3 Mean Corpuscular Hemoglobin 29.4 Mean Corpuscular Hemoglobin Concent 33.0 Red Cell Distribution Width 13.2 Platelet Count 141 # Mean Platelet Volume 12.2 H Neutrophils % 67.4 Lymphocytes % 22.5 Monocytes % 8.5 Eosinophils % 0.8 Basophils % 0.2 Nucleated Red Blood Cells % 0.0 Neutrophils # 8.9 H Lymphocytes # 3.0 H Monocytes # 1.1 H Eosinophils # 0.1 Basophils # 0.0 Nucleated Red Blood Cells # 0.0 Sodium Level 141 Potassium Level 3.8 Chloride Level 94 L Carbon Dioxide Level 27 Anion Gap 24 H Blood Urea Nitrogen 37 #H Creatinine 1.46 H Glucose Level 90 # Hemoglobin A1c 8.2 H Calcium Level 9.8 Phosphorus Level 3.4 Magnesium Level 1.7 Total Bilirubin 0.6 Direct Bilirubin 0.00 Indirect Bilirubin 0.6 Aspartate Amino Transf (AST/SGOT) 105 H Alanine Aminotransferase (ALT/SGPT) 93 H Alkaline Phosphatase 63 Total Protein 8.9 H Albumin 4.6 Globulin 4.30 H Albumin/Globulin Ratio 1.06 Triglycerides Level 223 H Cholesterol Level 176 LDL Cholesterol, Calculated 86 HDL Cholesterol 45 Cholesterol/HDL Ratio 3.9 Thyroid Stimulating Hormone (TSH) 0.778 Free Thyroxine Index 4.02 H Thyroxine (T4) 13.8 H Triiodothyronine (T3) Uptake 29.1 Bedside Glucose 82 Medications Medications Current Medications Acetaminophen (Tylenol Tab) 650 mg Q6H PRN PO PAIN LEVEL 1-3 OR FEVER Last administered on 12/08/16t 09:12; Admin Dose 650 MG; Start 12/08/16 at 07:00 Pantoprazole (Protonix Iv) 40 mg DAILY@06 IV Last administered on 12/09/16 05: 20; Admin Dose 40 MG; Start 12/09/16 at 06:00 Atorvastatin Calcium (Lipitor) 10 mg DAILY PO ; Start 12/09/16 at 09:00 Calamine (Calamine Lotion) 1 applic Q6 TOP Last administered on 12/09/16 05:21 ; Admin Dose 1 APPLIC; Start 12/08/16 at 12:00 Docusate Sodium (Colace) 100 mg BID PO ; Start 12/08/16 at 21:00 Hydroxyzine HCl (Atarax) 25 mg Q8H PRN PO ITCHING; Start 12/08/16 at 10:30 Insulin Glargine (Lantus) 32 unit QHS SC Last administered on 12/08/16 21:09; Admin Dose 32 UNIT; Start 12/08/16 at 21:00 Lisinopril 10 mg 10 mg DAILY PO ; Start 12/09/16 at 09:00 Sodium Chloride (NS) 1,000 ml @ 100 mls/hr Q10H IV Last administered on 02:39; Admin Dose 100 MLS/HR; Start 12/08/16 at 10:27 Ondansetron HCl (Zofran Inj) 4 mg Q6H PRN IV NAUSEA AND/OR VOMITING Last administered on 12/08/16 15:29; Admin Dose 4 MG; Start 12/08/16 at 10:30 Acetaminophen (Tylenol Tab) 650 mg Q6H PRN PO PAIN LEVEL 1-3 OR FEVER; Start at 10:30 Acetaminophen (Tylenol Supp) 650 mg Q6H PRN [place] PAIN LEVEL 1-3 OR FEVER; Start 12/08/16 at 10:30 Acetaminophen/ Hydrocodone Bitart ([place] (5/325)) 1 tab Q6H PRN PO MODERATE PAIN LEVEL 4-6; Start 12/08/16 at 10:30 Acetaminophen/ Hydrocodone Bitart ([place] (5/325)) 2 tab Q6H PRN PO SEVERE PAIN LEVEL 7-10; Start 12/08/16 at 10:30 Morphine Sulfate (morphine) 2 mg Q4H PRN IV SEVERE PAIN LEVEL 7-10 Last administered on 12/09/16 04:40; Admin Dose 2 MG; Start 12/08/16 at 10:30 Docusate Sodium (Colace) 100 mg Q12H PRN PO CONSTIPATION; Start 12/08/16 at 10: 30 Magnesium Hydroxide (Milk Of Mag) 30 ml DAILY PRN PO CONSTIPATION; Start at 10:30 Bisacodyl (Dulcolax Supp) 10 mg DAILY PRN [place] CONSTIPATION; Start 12/08/16 at 10 :30 Diagnostic Test (Pha) (Accu-Chek) 1 ea 02 XX ; Start 12/09/16 at 02:00 Miscellaneous Information 1 ea NOTE XX ; Start 12/08/16 at 11:00 Glucose (Glutose) 15 gm Q15M PRN PO DECREASED GLUCOSE; Start 12/08/16 at 11:00 Glucose (Glutose) 22.5 gm Q15M PRN PO DECREASED GLUCOSE; Start 12/08/16 at 11: 00 Dextrose (D50w Syringe) 25 ml Q15M PRN IV DECREASED GLUCOSE; Start 12/08/16 at 11:00 Dextrose (D50w Syringe) 50 ml Q15M PRN IV DECREASED GLUCOSE; Start 12/08/16 at 11:00 Glucagon (Glucagen) 1 mg Q15M PRN IM DECREASED GLUCOSE; Start 12/08/16 at 11:00 Glucose (Glutose) 15 gm Q15M PRN BUCCAL DECREASED GLUCOSE; Start 12/08/16 at 11 :00 Metoclopramide HCl (Reglan) 5 mg Q6 IV Last administered on 12/09/16 05:21; Admin Dose 5 MG; Start 12/08/16 at 12:00 Diphenhydramine HCl (Benadryl) 25 mg Q6H IV Last administered on 12/09/16 06: 18; Admin Dose 25 MG; Start 12/09/16 at 01:15 MARIVEL MOORE Dec 09, 2016 09:59
[2016-12-09] MEDS ORDERED: SOD CHLORIDE 0.9% 100 ML ONE (10:15)
[2016-12-09] MEDS ORDERED: IODIXANOL LOCM 100 ML BTL ONE (10:15)
[2016-12-09 15:01] VITALS: BP 146/74; RESP 20
[2016-12-09 15:18] VITALS: BP 144/79; PULSE 97
[2016-12-09 19:23] VITALS: BP 137/76; RESP 18
[2016-12-09] MEDS: ONDANSETRON 4 MG INJ IV PRN (20:09)
--- NOTE | 2016-12-09 21:02 | RADRPT ---
PROCEDURE: CT Abdomen with and without contrast. CLINICAL INDICATION: Bilateral renal masses. TECHNIQUE: CT scan of the abdomen with and without contrast was performed. The patient was scanne d both before and following the uncomplicated intravenous administration of 100 cc of Visipaque 320 . Immediate arterial phase images were obtained followed by venous phase images and excretory phase images. Coronal and sagittal reformatted images were obtained from the axial source images. Images were reviewed on a high-resolution PACS workstation. Total exam DLP is 866.94 mGy-cm. CTDIvol is 7 .08 mGy. One or more of the following dose reduction techniques were used: Automated exposure contr ol, adjustment of the mA and/or kV according to patient size, use of iterative reconstruction techni que. COMPARISON: Noncontrast CT scan of the abdomen and pelvis dated 12/08/2016. FINDINGS: The lung bases are normal. There is no pleural effusion. The liver is normal in size and attenuation. There is no focal hepatic lesion. The gallbladder and bile ducts are normal. The spleen is normal in size. There is no focal splenic lesion. Both adrenals are normal with no enlargement or mass. The pancreas is unremarkable with no mass or evidence of pancreatitis. Both kidneys demonstrate normal contrast enhancement. As seen previously, there is an exophytic le siva arising from the lower right kidney measuring 2.4 cm in diameter. This has Hounsfield units me asuring 18 on precontrast images, 24 on the immediate postcontrast images, and 20 on delayed contras t images. There is also an exophytic 2.2 cm lesion arising from the mid left kidney. This has Hounsfield unit s measuring 24 on noncontrast images, 28 on immediate postcontrast images, and 18 on delayed postcon trast images. The findings indicate the masses are due to benign cysts. Several other smaller cyst s are present bilaterally. There is no solid renal mass, hydronephrosis, or calculus on either side . The abdominal aorta is not dilated. Calcification is present in the aorta consistent with atheroscle rosis. There is no retroperitoneal lymphadenopathy or mass. The bowel and mesentery are normal. There is no free fluid or free gas. There are mild degenerative changes of the spine. The osseous structures are otherwise unremarkable . IMPRESSION: 1. Bilateral renal masses have the CT characteristics of benign cysts. No further evaluation is re quired. 2. Atherosclerosis. 3. Mild degenerative changes of the spine. RPTAT: QQ .Loki Greer MD, Date Time Electronically viewed and signed by .Loki Greer MD, MD on 12/09/2016 21:02 .R/
[2016-12-09] MEDS: INSULIN GLARGINE [LANtus] 3 ML PEN SC SCH (21:24)
[2016-12-10] VITALS (9 sets, daily range): BP systolic 124–157; BP diastolic 67–82; PULSE 83–99; RESP 14–18
[2016-12-10] MEDS: morphine 2 MG INJ IV PRN (00:39)
[2016-12-10] MEDS: CALAMINE 170 ML LOT TOP SCH ×4 (00:52→17:47)
[2016-12-10] MEDS: METOCLOPRAMIDE 10 MG INJ IV SCH ×4 (00:54→17:47)
[2016-12-10] MEDS: DIPHENHYDRAMINE 50 MG INJ IV SCH ×4 (00:57→19:09)
[2016-12-10] MEDS: ACCU-CHEK XX SCH (02:00)
[2016-12-10] MEDS: ONDANSETRON 4 MG INJ IV PRN ×2 (02:01→10:26)
[2016-12-10] MEDS: SOD CHLORIDE 0.9% 1,000 ML IV SCH ×5 (02:27→22:27)
[2016-12-10] MEDS: PANTOPRAZOLE 40 MG INJ IV SCH (06:27)
[2016-12-10] MEDS ORDERED: morphine 4 MG/ML VIAL IV ONE (07:00)
[2016-12-10] MEDS: INSULIN ASPART [NOVOLOG] 3 ML PEN SC SCH ×4 (08:14→20:38)
[2016-12-10] MEDS: ATORVASTATIN 10 MG TAB PO SCH (08:45)
[2016-12-10] MEDS: LISINOPRIL 10 MG TAB PO SCH (08:45)
[2016-12-10] MEDS: DOCUSATE SODIUM 100 MG CAP PO SCH ×2 (08:46→20:34)
[2016-12-10] MEDS ORDERED: METOCLOPRAMIDE 10 MG INJ IM ONE (10:30)
--- NOTE | 2016-12-10 14:36 | CONS ---
Date/Time of Note Date/Time of Note DATE: 12/10/16 TIME: 14:23 Assessment/Plan Assessment/Plan Additional Assessment/Plan Assessment * Abdominal pain R/O gerd vs gastroparesis vs gallstone * Diabetes mellitus * Hypertension * Elevated BUN/creatinine Plan * EGD risks and benefit explained to patient agreed with the planned procedure * Continue present management * NPO Consultation Date/Type/Reason Admit Date/Time Dec 08, 2016 at 06:00 Date of Consultation: Dec 10, 2016 Type of Consultation: gastroenterology Reason for Consultation abdominal pain Referring Provider: MARIVEL MOORE of Present Illness 63 year old male patient with past medical history of hypertension, hyperlipidemia,diabetes mellitus ,congestive heart failure presented in the emergency room complaining of abdominal pain .Present condition started 8 days prior to condition as vague abdominal pain epigastric area becoming generalized with no associated nausea,vomiting,hematemesis nor hematochezia Emergency room course revealed CT abdomen revealed 1. A 2.4 cm lesion extends exophytically inferiorly off the inferior pole right kidney, a 1.3 cm lesion extends exophytically, posteriorly off the inferior pole right kidney, and a 2.2 cm lesion extensive exophytically laterally off the mid pole of the left kidney all measuring approximately 24 HU. These could represent solid neoplasms. Correlation with a three-phase CT scan of the abdomen with contrast may be useful to further characterize. A 7 mm subcapsular nodule is seen at the lateral inferior pole left kidney and a 2 mm punctate calcification is seen within the superior pole left kidney. There is mild perinephric stranding but no evidence of urinary outflow obstruction with the ureters and bladder appearing unremarkable. 2. There is no evidence of bowel obstruction or inflammation with a normal- appearing vermiform appendix. 3. There is no free intraperitoneal fluid or air. 3 calcifications are seen within the intraperitoneal fat which may represent calcified nodes to are seen in the pelvis and 1 is seen posterior to the stomach and superior to the tail of the pancreas with the largest measuring 4. Mildly prominent prostate. 5. Small fat containing left inguinal hernia. 6. Grade 1 anterolisthesis of L4 and L5 with degenerative disk changes along with a disk bulge and with degenerative endplate and facet changes associated with stenosis to the bilateral nerve root canals at this level. CBC showed leukocytosis wbc 15.2,AST 105,ALT 93 BUN 37 creatinine 1.46. Presently ,patient still presents with vague abdominal pain but no hematemesis nor hematochezia Constitutional: improved, no complaints Eyes: no complaints ENT: no complaints Respiratory: no complaints Cardiovascular: no complaints Gastrointestinal: pain Genitourinary: no complaints Musculoskeletal: no complaints Skin: no complaints Neurologic: no complaints Endocrine: no complaints Lymphatic: no complaints Psychological: nl mood/affect, no complaints Immunologic: no complaints Past Medical History Medical History: diabetes, hypertension, renal disease Past Surgical History Past Surgical Hx: no surgical history Social History Smoking Status: Current every day smoker Exam/Review of Systems Vital Signs Vitals Vital Signs Date Time Temp Pulse Resp B/P Pulse Ox O2 Delivery O2 Flow Rate FiO2 12/10/16 13:55 98.1 82 17 156/82 100 12/09/16 15:18 Room Air Intake and Output 12/09/16 12/09/16 12/10/16 15:00 23:00 07:00 Intake Total 1940 ml 1200 ml Output Total 3 ml 1550 ml 800 ml Balance -3 ml 390 ml 400 ml Exam Constitutional: alert, oriented, well developed Psych: nl mood/affect, no complaints Head: atraumatic, normocephalic Eyes: EOMI, PERRL, nl conjunctiva, nl lids, nl sclera ENMT: nl external ears & nose, nl lips & teeth, nl nasal mucosa & septum Neck: non-tender, supple Respiratory: clear to auscultation, normal air movement Cardiovascular: nl pulses, regular rate and rhythm Gastrointestinal: nl liver, spleen, soft, tender (epigastric), No rebound or guarding Musculoskeletal: nl extremities to inspection, nl gait and stance Extremities: normal pulses Neurological: VASCULAR PHYSICIAN II-XII intact, nl mental status, nl speech, nl strength Skin: nl turgor, No rash or lesions Lymph: nl lymph nodes Results Result Diagram: 12/09/16 0531 12/09/16 0531 Results 24 hrs Laboratory Tests Test 12/09/16 17:43 12/09/16 21:14 12/10/16 07:49 12/10/16 11:51 Bedside Glucose 107 146 184 221 H Test 12/10/16 12:21 Bedside Glucose 194 Medications Medications Current Medications Acetaminophen (Tylenol Tab) 650 mg Q6H PRN PO PAIN LEVEL 1-3 OR FEVER Last administered on 12/08/16t 09:12; Admin Dose 650 MG; Start 12/08/16 at 07:00 Pantoprazole (Protonix Iv) 40 mg DAILY@06 IV Last administered on 12/10/16 06: 27; Admin Dose 40 MG; Start 12/09/16 at 06:00 Atorvastatin Calcium (Lipitor) 10 mg DAILY PO Last administered on 12/10/16 08 :45; Admin Dose 10 MG; Start 12/09/16 at 09:00 Calamine (Calamine Lotion) 1 applic Q6 TOP Last administered on 12/10/16 12:21 ; Admin Dose 1 APPLIC; Start 12/08/16 at 12:00 Docusate Sodium (Colace) 100 mg BID PO Last administered on 12/10/16 08:46; Admin Dose 100 MG; Start 12/08/16 at 21:00 Hydroxyzine HCl (Atarax) 25 mg Q8H PRN PO ITCHING Last administered on 02:38; Admin Dose 25 MG; Start 12/08/16 at 10:30 Insulin Glargine (Lantus) 32 unit QHS SC Last administered on 12/09/16 21:24; Admin Dose 32 UNIT; Start 12/08/16 at 21:00 Lisinopril 10 mg 10 mg DAILY PO Last administered on 12/10/16 08:45; Admin Dose 10 MG; Start 12/09/16 at 09:00 Sodium Chloride (NS) 1,000 ml @ 100 mls/hr Q10H IV Last administered on 06:27; Admin Dose 100 MLS/HR; Start 12/08/16 at 10:27 Ondansetron HCl (Zofran Inj) 4 mg Q6H PRN IV NAUSEA AND/OR VOMITING Last administered on 12/10/16 10:26; Admin Dose 4 MG; Start 12/08/16 at 10:30 Acetaminophen (Tylenol Tab) 650 mg Q6H PRN PO PAIN LEVEL 1-3 OR FEVER; Start at 10:30 Acetaminophen (Tylenol Supp) 650 mg Q6H PRN [place] PAIN LEVEL 1-3 OR FEVER; Start 12/08/16 at 10:30 Acetaminophen/ Hydrocodone Bitart ([place] (5/325)) 1 tab Q6H PRN PO MODERATE PAIN LEVEL 4-6; Start 12/08/16 at 10:30 Acetaminophen/ Hydrocodone Bitart ([place] (5/325)) 2 tab Q6H PRN PO SEVERE PAIN LEVEL 7-10 Last administered on 12/10/16 07:05; Admin Dose 2 TAB; Start at 10:30 Morphine Sulfate (morphine) 2 mg Q4H PRN IV SEVERE PAIN LEVEL 7-10 Last administered on 12/10/16 00:39; Admin Dose 2 MG; Start 12/08/16 at 10:30 Docusate Sodium (Colace) 100 mg Q12H PRN PO CONSTIPATION; Start 12/08/16 at 10: 30 Magnesium Hydroxide (Milk Of Mag) 30 ml DAILY PRN PO CONSTIPATION; Start at 10:30 Bisacodyl (Dulcolax Supp) 10 mg DAILY PRN [place] CONSTIPATION; Start 12/08/16 at 10 :30 Diagnostic Test (Pha) (Accu-Chek) 1 ea 02 XX ; Start 12/09/16 at 02:00 Miscellaneous Information 1 ea NOTE XX ; Start 12/08/16 at 11:00 Glucose (Glutose) 15 gm Q15M PRN PO DECREASED GLUCOSE; Start 12/08/16 at 11:00 Glucose (Glutose) 22.5 gm Q15M PRN PO DECREASED GLUCOSE; Start 12/08/16 at 11: 00 Dextrose (D50w Syringe) 25 ml Q15M PRN IV DECREASED GLUCOSE; Start 12/08/16 at 11:00 Dextrose (D50w Syringe) 50 ml Q15M PRN IV DECREASED GLUCOSE; Start 12/08/16 at 11:00 Glucagon (Glucagen) 1 mg Q15M PRN IM DECREASED GLUCOSE; Start 12/08/16 at 11:00 Glucose (Glutose) 15 gm Q15M PRN BUCCAL DECREASED GLUCOSE; Start 12/08/16 at 11 :00 Metoclopramide HCl (Reglan) 5 mg Q6 IV Last administered on 12/10/16 13:12; Admin Dose 5 MG; Start 12/08/16 at 12:00 Diphenhydramine HCl (Benadryl) 25 mg Q6H IV Last administered on 12/10/16 13: 12; Admin Dose 25 MG; Start 12/09/16 at 01:15 YASH PEPPER MD Dec 10, 2016 14:33
[2016-12-10] MEDS ORDERED: LIDOCAINE 2% (SDV) 5 ML INJ ONE (15:40)
[2016-12-10] MEDS ORDERED: PROPOFOL 20 ML ONE (15:40)
--- NOTE | 2016-12-10 16:51 | PN ---
Date/Time of Note Date/Time of Note DATE: 12/10/16 TIME: 16:47 Assessment/Plan VTE Prophylaxis VTE Prophylaxis Intervention: SCD's Lines/Catheters IV Catheter Type (from [facility]): Peripheral IV Urinary Cath still in place: No Assessment/Plan Chief Complaint/Hosp Course Impression and plan 1. Abdominal pain. Will check CT scan of the abdomen. Suspect possible diabetic gastroparesis considering uncontrolled blood glucose. Continue on Reglan and IV fluids.Of note patient did have CT scan of the abdomen that did show 2.4 similar lesion extending exophytically inferiorly off the inferior pole right kidney and a 1.3 cm lesion extends exophytically posteriorly off the inferior pole the right kidney and a 2.2 similar lesion extensive exophytically laterally off the midpole of the left kidney all measuring approximately 24 HU suspect for neoplasms Repeat CT scan of the abdomen and pelvis with contrast did show previously noted lesions appear as benign cysts. Will monitor for now. 2. Suspect GERD. Continue Protonix. 3. Diabetes. Will start on insulin regimen. Will adjust as needed. inclusion special educator was consulted. Will follow up with recommendations 4. Essential hypertension. Will provide with antihypertensives and adjust needed. 5. Dyslipidemia. Noted with high triglycerides. Will resume statin medications was able to tolerate oral intake. 6. Acute kidney injury on likely CKD.. Improving at present. Suspect dehydration. Will get cleaning team member pending clinical course. Disposition and plan: Patient still with abdominal pain. GI to follow follow up with recommendations. Discussed plan of care with Dr. Yeager Problems: Subjective 24 Hr Interval Summary Free Text/Dictation Still reports having some abdominal discomfort Exam/Review of Systems Vital Signs Vitals Vital Signs Date Time Temp Pulse Resp B/P Pulse Ox O2 Delivery O2 Flow Rate FiO2 12/10/16 16:16 98.8 87 18 139/69 99 Room Air Intake and Output 12/09/16 12/09/16 12/10/16 14:59 22:59 06:59 Intake Total 1940 ml 1200 ml Output Total 3 ml 1550 ml 800 ml Balance -3 ml 390 ml 400 ml Exam Constitutional: alert, oriented Psych: anxiety Respiratory: clear to auscultation Cardiovascular: regular rate and rhythm Gastrointestinal: soft, tender Musculoskeletal: nl extremities to inspection Neurological: [employer] II-XII intact, nl mental status, nl speech Results Result Diagram: 12/09/1631 12/09/16 0531 Results 24 hrs Laboratory Tests Test 12/09/16 17:43 12/09/16 21:14 12/10/16 07:49 12/10/16 11:51 Bedside Glucose 107 146 184 221 H Test 12/10/16 12:21 Bedside Glucose 194 Medications Medications Current Medications Acetaminophen (Tylenol Tab) 650 mg Q6H PRN PO PAIN LEVEL 1-3 OR FEVER Last administered on 12/08/16 09:12; Admin Dose 650 MG; Start 12/08/16 at 07:00 Pantoprazole (Protonix Iv) 40 mg DAILY@06 IV Last administered on 12/10/16 06: 27; Admin Dose 40 MG; Start 12/09/16 at 06:00 Atorvastatin Calcium (Lipitor) 10 mg DAILY PO Last administered on 12/10/16 08 :45; Admin Dose 10 MG; Start 12/09/16 at 09:00 Calamine (Calamine Lotion) 1 applic Q6 TOP Last administered on 12/10/16 12:21 ; Admin Dose 1 APPLIC; Start 12/08/16 at 12:00 Docusate Sodium (Colace) 100 mg BID PO Last administered on 12/10/16 08:46; Admin Dose 100 MG; Start 12/08/16 at 21:00 Hydroxyzine HCl (Atarax) 25 mg Q8H PRN PO ITCHING Last administered on 02:38; Admin Dose 25 MG; Start 12/08/16 at 10:30 Insulin Glargine (Lantus) 32 unit QHS SC Last administered on 12/09/16 21:24; Admin Dose 32 UNIT; Start 12/08/16 at 21:00 Lisinopril 10 mg 10 mg DAILY PO Last administered on 12/10/16 08:45; Admin Dose 10 MG; Start 12/09/16 at 09:00 Sodium Chloride (NS) 1,000 ml @ 100 mls/hr Q10H IV Last administered on 06:27; Admin Dose 100 MLS/HR; Start 12/08/16 at 10:27 Ondansetron HCl (Zofran Inj) 4 mg Q6H PRN IV NAUSEA AND/OR VOMITING Last administered on 12/10/16 10:26; Admin Dose 4 MG; Start 12/08/16 at 10:30 Acetaminophen (Tylenol Tab) 650 mg Q6H PRN PO PAIN LEVEL 1-3 OR FEVER; Start at 10:30 Acetaminophen (Tylenol Supp) 650 mg Q6H PRN OR PAIN LEVEL 1-3 OR FEVER; Start 12/08/16 at 10:30 Acetaminophen/ Hydrocodone Bitart ([place] (5/325)) 1 tab Q6H PRN PO MODERATE PAIN LEVEL 4-6; Start 12/08/16 at 10:30 Acetaminophen/ Hydrocodone Bitart ([place] (5/325)) 2 tab Q6H PRN PO SEVERE PAIN LEVEL 7-10 Last administered on 12/10/16 07:05; Admin Dose 2 TAB; Start at 10:30 Morphine Sulfate (morphine) 2 mg Q4H PRN IV SEVERE PAIN LEVEL 7-10 Last administered on 12/10/16 00:39; Admin Dose 2 MG; Start 12/08/16 at 10:30 Docusate Sodium (Colace) 100 mg Q12H PRN PO CONSTIPATION; Start 12/08/16 at 10: 30 Magnesium Hydroxide (Milk Of Mag) 30 ml DAILY PRN PO CONSTIPATION; Start at 10:30 Bisacodyl (Dulcolax Supp) 10 mg DAILY PRN OR CONSTIPATION; Start 12/08/16 at 10 :30 Diagnostic Test (Pha) (Accu-Chek) 1 ea 02 XX ; Start 12/09/16 at 02:00 Miscellaneous Information 1 ea NOTE XX ; Start 12/08/16 at 11:00 Glucose (Glutose) 15 gm Q15M PRN PO DECREASED GLUCOSE; Start 12/08/16 at 11:00 Glucose (Glutose) 22.5 gm Q15M PRN PO DECREASED GLUCOSE; Start 12/08/16 at 11: 00 Dextrose (D50w Syringe) 25 ml Q15M PRN IV DECREASED GLUCOSE; Start 12/08/16 at 11:00 Dextrose (D50w Syringe) 50 ml Q15M PRN IV DECREASED GLUCOSE; Start 12/08/16 at 11:00 Glucagon (Glucagen) 1 mg Q15M PRN IM DECREASED GLUCOSE; Start 12/08/16 at 11:00 Glucose (Glutose) 15 gm Q15M PRN BUCCAL DECREASED GLUCOSE; Start 12/08/16 at 11 :00 Metoclopramide HCl (Reglan) 5 mg Q6 IV Last administered on 12/10/16 13:12; Admin Dose 5 MG; Start 12/08/16 at 12:00 Diphenhydramine HCl (Benadryl) 25 mg Q6H IV Last administered on 12/10/16 13: 12; Admin Dose 25 MG; Start 12/09/16 at 01:15 MARIVEL MOORE Dec 10, 2016 16:50
[2016-12-10] MEDS: INSULIN GLARGINE [LANtus] 3 ML PEN SC SCH (20:38)
[2016-12-11] MEDS: morphine 2 MG INJ IV PRN (00:40)
[2016-12-11] MEDS: CALAMINE 170 ML LOT TOP SCH ×4 (00:40→17:37)
[2016-12-11] MEDS: METOCLOPRAMIDE 10 MG INJ IV SCH ×4 (00:40→17:28)
[2016-12-11] MEDS: DIPHENHYDRAMINE 50 MG INJ IV SCH ×4 (01:34→19:15)
[2016-12-11] MEDS: ACCU-CHEK XX SCH (01:34)
[2016-12-11 02:00] VITALS: BP 137/79; RESP 18
[2016-12-11] MEDS: PANTOPRAZOLE 40 MG INJ IV SCH (06:41)
[2016-12-11] MEDS: SOD CHLORIDE 0.9% 1,000 ML IV SCH ×3 (06:46→18:27)
[2016-12-11 07:23] VITALS: BP 150/76; RESP 18
[2016-12-11] MEDS: INSULIN ASPART [NOVOLOG] 3 ML PEN SC SCH ×3 (08:22→17:36)
[2016-12-11] MEDS: DOCUSATE SODIUM 100 MG CAP PO SCH (08:45)
[2016-12-11] MEDS: ATORVASTATIN 10 MG TAB PO SCH (08:45)
[2016-12-11] MEDS: LISINOPRIL 10 MG TAB PO SCH (08:45)
[2016-12-11] MEDS ORDERED: ONDA4TAB14 PO (10:14)
[2016-12-11] MEDS ORDERED: METO5TAB58 PO (10:14)
[2016-12-11] MEDS ORDERED: LANT3I SC (10:14)
[2016-12-11] MEDS ORDERED: PANT40TA4 PO (10:14)
[2016-12-11] MEDS ORDERED: TRAM50TA2 PO (10:14)
[2016-12-11 14:00] VITALS: BP 130/72; RESP 18
--- NOTE | 2016-12-11 14:07 | PN ---
Date/Time of Note Date/Time of Note DATE: 12/11/16 TIME: 14:04 Assessment/Plan VTE Prophylaxis VTE Prophylaxis Intervention: SCD's Lines/Catheters IV [facility] Type (from [facility]): Peripheral IV Urinary Cath still in place: No Assessment/Plan Assessment/Plan Assessment * Abdominal pain EGD moderate gastritis * Diabetes mellitus * Hypertension * Elevated BUN/creatinine Plan * resume diet * Continue present management * Stable for outpatient management * Pantoprazole 40 mg BID x 4 weeeks * case discussed with Dr araujo * Further orders will depend on clinical course Subjective 24 Hr Interval Summary Free Text/Dictation * Course reviewed with RN * Patient seen and examined * No untoward events overnight * EGD moderate gastritis * Biopsy Gastric biopsy: -- Oxyntopyloric and pyloric mucosa with a few scattered plasma cells in the superficial lamina propria, histologically nonspecific. -- No Helicobacter organisms are identified in a Giemsa stain (positive control concurrently reviewed). -- There is no evidence of malignancy. Exam/Review of Systems Vital Signs Vitals Vital Signs Date Time Temp Pulse Resp B/P Pulse Ox O2 Delivery O2 Flow Rate FiO2 12/11/16 14:00 98.3 96 18 130/72 99 12/10/16 16:16 Room Air Intake and Output 12/10/16 12/10/16 12/11/16 15:00 23:00 07:00 Intake Total 1600 ml 1325 ml Output Total 300 ml Balance 1300 ml 1325 ml Exam Constitutional: alert, oriented Neck: non-tender, supple Respiratory: clear to auscultation, normal air movement Cardiovascular: nl pulses, regular rate and rhythm Gastrointestinal: nl liver, spleen, non-tender, soft Musculoskeletal: nl extremities to inspection, nl gait and stance Extremities: normal pulses Neurological: nl mental status Results Result Diagram: 12/09/16 0531 12/09/16 0531 Results 24 hrs Laboratory Tests Test 12/10/16 17:13 12/10/16 20:35 12/11/16 01:32 12/11/16 08:15 Bedside Glucose 176 295 H 173 166 Test 12/11/16 12:09 Bedside Glucose 183 Medications Medications Current Medications Acetaminophen (Tylenol Tab) 650 mg Q6H PRN PO PAIN LEVEL 1-3 OR FEVER Last administered on 12/08/16t 09:12; Admin Dose 650 MG; Start 12/08/16 at 07:00 Pantoprazole (Protonix Iv) 40 mg DAILY@06 IV Last administered on 12/11/16 06: 41; Admin Dose 40 MG; Start 12/09/16 at 06:00 Atorvastatin Calcium (Lipitor) 10 mg DAILY PO Last administered on 12/11/16 08 :45; Admin Dose 10 MG; Start 12/09/16 at 09:00 Calamine (Calamine Lotion) 1 applic Q6 TOP Last administered on 12/11/16 12:12 ; Admin Dose 1 APPLIC; Start 12/08/16 at 12:00 Docusate Sodium (Colace) 100 mg BID PO Last administered on 12/11/16 08:45; Admin Dose 100 MG; Start 12/08/16 at 21:00 Hydroxyzine HCl (Atarax) 25 mg Q8H PRN PO ITCHING Last administered on 02:38; Admin Dose 25 MG; Start 12/08/16 at 10:30 Insulin Glargine (Lantus) 32 unit QHS SC Last administered on 12/10/16 20:38; Admin Dose 32 UNIT; Start 12/08/16 at 21:00 Lisinopril 10 mg 10 mg DAILY PO Last administered on 12/11/16 08:45; Admin Dose 10 MG; Start 12/09/16 at 09:00 Sodium Chloride (NS) 1,000 ml @ 100 mls/hr Q10H IV Last administered on 06:46; Admin Dose 100 MLS/HR; Start 12/08/16 at 10:27 Ondansetron HCl (Zofran Inj) 4 mg Q6H PRN IV NAUSEA AND/OR VOMITING Last administered on 12/10/16 10:26; Admin Dose 4 MG; Start 12/08/16 at 10:30 Acetaminophen (Tylenol Tab) 650 mg Q6H PRN PO PAIN LEVEL 1-3 OR FEVER; Start at 10:30 Acetaminophen (Tylenol Supp) 650 mg Q6H PRN DC PAIN LEVEL 1-3 OR FEVER; Start 12/08/16 at 10:30 Acetaminophen/ Hydrocodone Bitart ([place] (5/325)) 1 tab Q6H PRN PO MODERATE PAIN LEVEL 4-6; Start 12/08/16 at 10:30 Acetaminophen/ Hydrocodone Bitart ([place] (5/325)) 2 tab Q6H PRN PO SEVERE PAIN LEVEL 7-10 Last administered on 12/10/16 07:05; Admin Dose 2 TAB; Start at 10:30 Morphine Sulfate (morphine) 2 mg Q4H PRN IV SEVERE PAIN LEVEL 7-10 Last administered on 12/11/16 00:40; Admin Dose 2 MG; Start 12/08/16 at 10:30 Docusate Sodium (Colace) 100 mg Q12H PRN PO CONSTIPATION; Start 12/08/16 at 10: 30 Magnesium Hydroxide (Milk Of Mag) 30 ml DAILY PRN PO CONSTIPATION; Start at 10:30 Bisacodyl (Dulcolax Supp) 10 mg DAILY PRN DC CONSTIPATION; Start 12/08/16 at 10 :30 Diagnostic Test (Pha) (Accu-Chek) 1 ea 02 XX Last administered on 12/11/16 01: 34; Admin Dose 1 EA; Start 12/09/16 at 02:00 Miscellaneous Information 1 ea NOTE XX ; Start 12/08/16 at 11:00 Glucose (Glutose) 15 gm Q15M PRN PO DECREASED GLUCOSE; Start 12/08/16 at 11:00 Glucose (Glutose) 22.5 gm Q15M PRN PO DECREASED GLUCOSE; Start 12/08/16 at 11: 00 Dextrose (D50w Syringe) 25 ml Q15M PRN IV DECREASED GLUCOSE; Start 12/08/16 at 11:00 Dextrose (D50w Syringe) 50 ml Q15M PRN IV DECREASED GLUCOSE; Start 12/08/16 at 11:00 Glucagon (Glucagen) 1 mg Q15M PRN IM DECREASED GLUCOSE; Start 12/08/16 at 11:00 Glucose (Glutose) 15 gm Q15M PRN BUCCAL DECREASED GLUCOSE; Start 12/08/16 at 11 :00 Metoclopramide HCl (Reglan) 5 mg Q6 IV Last administered on 12/11/16 12:11; Admin Dose 5 MG; Start 12/08/16 at 12:00 Diphenhydramine HCl (Benadryl) 25 mg Q6H IV Last administered on 12/11/16 01: 34; Admin Dose 25 MG; Start 12/09/16 at 01:15 SAPNA NICHOLAS NP Dec 11, 2016 14:07
--- NOTE | 2016-12-11 17:28 | PDOCDIS ---
Discharge Instructions DIAGNOSIS Discharge Diagnosis 1. Abdominal pain likely secondary to gastritis 2. Suspect GERD 3. Diabetes 4. Essential hypertension 5. Dyslipidemia 6. Acute kidney injury 7. Renal cyst CONDITION Patient Condition: Stable HOME CARE INSTRUCTIONS: Special Diet: 1800 ADA FOLLOW UP/APPOINTMENTS Follow-up Plan 1. Follow up with Dr. Dhaval Wang in one week 2. Follow-up with her primary care provider in 2 weeks MARIVEL MOORE Dec 11, 2016 17:28
--- NOTE | 2016-12-11 17:33 | DS ---
Date/Time of Note Date/Time of Note DATE: 12/11/16 TIME: 17:31 Discharge Summary Admission/Discharge Info Admit Date/Time Dec 08, 2016 at 06:00 Discharge Date/Time Discharge Diagnosis 1. Abdominal pain likely secondary to gastritis 2. Suspect GERD 3. Diabetes 4. Essential hypertension 5. Dyslipidemia 6. Acute kidney injury 7. Renal cyst Patient Condition: Stable Consults 1. Dr. Dhaval Wang Hx of Present Illness This is a 61-year-old male with history of hypertension, dyslipidemia, diabetes , chronic pain, CKD, CHF with EF of 55% with diastolic dysfunction who came to [facility] due to reports of abdominal pain. Of note patient was recently hospitalized on 09/28/2016 for reported syncope but did leave AGAINST MEDICAL ADVICE at that day. He now reports having abdominal pain for 7 days duration. He does report he has some associated nonbilious nonbloody emesis and hasnt had a bowel movement for 7 days. He reports subjective fevers. Reports his abdominal pain starts in his right lower abdominal quadrant and radiates his epigastric area with some acid reflux symptoms. He did have imaging done on December 08, 2016 with gallbladder ultrasound showing cholelithiasis without evidence of choledocholithiasis or cholecystitis. Additionally he did have also white count of 15.2 and 7 transaminitis as well. He did have a creatinine of 2.22 and a glucose of 334 with A1c of 8.3. Patient remains afebrile during admission. He does still have some abdominal pain. We will evaluate him for the aformentiond issues Hospital Course This is a 61-year-old male with history of hypertension, diabetes, this edema, chronic pain, CAD, CHF with ejection fraction 55% with diastolic dysfunction, who came to [facility] due to reports of abdominal pain with some associated nonbilious nonbloody emesis days. He did come to [facility] and had gallbladder ultrasound that did show cholelithiasis without ultrasound evidence of cholecystitis. Additionally did have an abdominal pelvic CT scan that did show a 2.4 cm lesion extending exophytically inferiorly of the right inferior pole right kidney and a 1.2 cm lesion extending exophytically posteriorly inferior pole of the right kidney 2.2 cm lesion extends exophytically laterally off the midpole of the left kidney measuring 24HU. Findings were initially suspicious for neoplasm. Further delineation was done with a triple phase CT scan of his abdomen and pelvis. After evaluation of the scan was done and showed that he had bilateral renal cysts that were likely benign and no further evaluation was required. He still reported having abdominal pain he did also report having a history of acid reflux. He was seen by gastroentrologist. He did undergo an EGD. He was found to have moderate gastritis. Biopsies were negative for any H. pylori or malignancy. He was optimized with PPI medication and did have good response. During his course of stay he did improve. Is otherwise optimized medically. He was continued on insulin for his diabetes and antihypertensives for his hypertension. He was also resumed on his statin medication once he could tolerate oral intake. He was seen with some acute kidney injury and this was improved status post IV hydration. During his course of stay he did improve. He was instructed to follow-up with grease renderer within a week. The plan of care was discussed with the patient and patient did verbalizes understanding. On the day of discharge patient was in stable condition Discussed plan of care with Dr. Yeager Discharge process times greater than 40 minutes Home Meds Active Scripts Metoclopramide* (Reglan*) 5 Mg Tablet, 5 MG PO AC MEALS AND BEDTIME for 30 Days , TAB Prov:MARIVEL MOORE 12/11/16 Pantoprazole (Protonix) 40 Mg Tabec, 40 MG PO BID for 30 Days, TAB Prov:REGMARIVEL AGUILAR 12/11/16 Insulin Glargine* (Lantus*) 100 Unit/Ml Soln, 36 UNIT SC QHS for 30 Days Prov:MARIVEL MOORE 12/11/16 Ondansetron (Ondansetron Odt) 4 Mg Tab.rapdis, 4 MG PO Q6H Y for NAUSEA AND/OR VOMITING, #10 TAB Prov:REGMARIVEL AGUILAR 12/11/16 Ondansetron Hcl* (Zofran*) 4 Mg Tab, 4 MG PO Q6H Y for NAUSEA AND OR VOMITING for 3 Days, TAB Prov:CLAUDINE ZUNIGA DO 12/02/16 Hydroxyzine Hcl* (Hydroxyzine Hcl*) 25 Mg Tablet, 25 MG PO Q8H Y for ITCHING, # 30 TAB Prov:AMAYA VILLAFANA NP 11/04/16 Permethrin* (Elimite*) 5% Cr, 1 APPLIC TOP ONCE, #1 TUB Prov:AMAYA VILLAFANA NP 11/04/16 Hydrocortisone Acetate (Anusol-Hc) 25 Mg Supp.rect, 1 SUPP MA BID Y for HEMORROID PAIN/ITCHING, #12 SUPP.RECT Prov:CHANTELLE COLEMAN PA-C 06/03/16 Omeprazole* (Omeprazole*) 20 Mg Capsule., 20 MG PO DAILY, #30 CAP Prov:CHANTELLE COLEMAN PA-C 06/03/16 Acetaminophen* (Tylophen*) 500 Mg Capsule, 1 CAP PO Q6H Y for PAIN AND OR ELEVATED TEMP, #20 CAP Prov:KALA CAMARA NP 04/18/16 Calamine* (Calamine*) 120 Ml Lotion, 1 APPLIC TOP Q6 for 5 Days, #120 EA 0 Refills Prov:ELAINE NEFF PA-C 01/25/16 Hydrocodone Bit-Acetaminophen* ([place]*) 5-325 Mg Tab, 1 TAB PO Q6 Y for PAIN, # 20 TAB Prov:AMAYA VILLAFANA NP 11/07/15 Ibuprofen* (Motrin*) 600 Mg Tab, 600 MG PO Q6, #30 TAB Prov:HAKEEM FORD PA-C 10/30/15 Diphenhydramine Hcl* (Benadryl*) 25 Mg Cap, 25 MG PO Q6, #14 CAP Prov:TARAS AMBROSIO PA-C 07/09/15 Glipizide* (Glipizide ER*) 5 Mg/Bottle Tab.osm.24, 5 MG PO DAILY, #30 TAB Prov:JESSA GARRISON DO 03/14/15 Omeprazole* (Omeprazole*) 20 Mg Capsule., 20 MG PO DAILY, #30 CAP Prov:JESSA GARRISON DO 03/14/15 Docusate Sodium* (Colace*) 100 Mg Capsule, 100 MG PO BID, #60 CAP Prov:JESSA GARRISON DO 03/14/15 Atorvastatin (Atorvastatin) 10 Mg Tablet, 10 MG PO DAILY, #30 TAB Prov:JESSA GARRISON DO 03/14/15 Insulin Glargine,Hum.rec.anlog (Lantus Solostar) 100 Units/Ml Pen, 32 UNIT SC QHS, #30 DOSE Prov:MELI,JESSA H. DO 03/14/15 Reported Medications Famotidine* (Famotidine*) 40 Mg Tablet, 40 MG PO DAILY, TAB 05/13/14 Lisinopril* (Lisinopril*) 10 Mg Tablet, 10 MG PO DAILY 06/17/11 Discontinued Reported Medications Gabapentin* (Neurontin*) 300 Mg Capsule, 300 MG PO TID 08/22/12 Discontinued Scripts Guaifenesin* (Robitussin*) 100 Mg/5 Ml Syrup, 100 MG PO Q4H Y for COUGH, #120 ML Prov:KALA CAMARA SUPERINTENDENT [employer]CTORY 04/18/16 Sodium Chloride (Saline Nasal Mist) 126 Ml Mist, 2 SPRAY NASAL Q2H Y for NASAL CONGESTION, #1 BOTTLE Prov:KALA CAMARA [employer]PER[employer] 04/18/16 Permethrin (Permethrin) 120 Ml Liquid, 120 ML TP QHS for 1 Day, #120 ML 0 Refills Prov:ELAINE NEFF PA-C 01/25/16 Diphenhydramine Hcl* (Benadryl*) 25 Mg Cap, 25 MG PO Q6 Y for ITCHING/RASH for 7 Days, #30 TAB 0 Refills Prov:ELAINE NEFF PA-C 01/25/16 Ondansetron Hcl* (Zofran* ODT) 4 mg -ODT Tab.disper, 4 MG PO Q8 Y for NAUSEA AND /OR VOMITING, #30 TAB Prov:AMAYA VILLAFANA [employer]PER[employer] 11/07/15 Hydrocortisone* Topical (Hydrocortisone* Topical) 1%-28.35 Gm Cream..g., 1 APPLIC TOP Q6 Y for ITCHING, #1 TUB Prov:TARAS AMBROSIO PA-C 07/09/15 Loratadine* (Claritin*) 10 Mg Capsule, 10 MG PO DAILY, #30 CAP Prov:MELIJESSA H. DO 03/14/15 Sitagliptin* (Januvia*) 50 Mg Tablet, 50 MG PO DAILY, #30 TAB Prov:MELI,JESSA H. DO 03/14/15 Ibuprofen* (Ibuprofen*) 600 Mg Tablet, 600 MG PO Q6, #30 TAB Prov:MELI,JESSA H. DO 10/21/15 Pantoprazole* (Protonix*) 40 Mg Tablet., 40 MG PO DAILY, #20 TAB Prov:ANY LARSON MD 03/10/15 Follow-up Plan CONDITION Patient Condition: Stable HOME CARE INSTRUCTIONS: Special Diet: 1800 ADA FOLLOW UP/APPOINTMENTS Follow-up Plan 1. Follow up with Dr. Dhaval Wang in one week 2. Follow-up with her primary care provider in 2 weeks Primary Care Provider Not On Staff Doctor Time spent on discharge: > 30 minutes Pending Labs Laboratory Tests Test 12/10/16 20:35 12/11/16 01:32 12/11/16 08:15 12/11/16 12:09 Bedside Glucose 295mg/dL (70-220) 173mg/dL (70-220) 166mg/dL (70-220) 183mg/dL (70-220) MARIVEL MOORE Dec 11, 2016 17:33
[2016-12-11 19:24] VITALS: BP 129/68; RESP 18
--- NOTE | 2016-12-15 04:39 | GILP ---
DATE OF PROCEDURE: 12/10/2016 PROCEDURE PERFORMED: Esophagogastroduodenoscopy with biopsy. SURGEON: Dhaval Wang MD INDICATION: The patient is being evaluated for abdominal pain and pyrosis. MEDICATIONS: Monitored anesthesia care by anesthesiologist. INSTRUMENT USED: Olympus endoscope. TECHNIQUE: After informed consent, with the patient/relatives understanding the procedure, its indications, potential risks and complications, including but not limited to: allergic reaction, bleeding, perforation or infection, and after all pertinent questions were answered to the patients satisfaction, the patient/relatives signed witnessed informed consent. Following this, premedication was administered slowly IV push under careful cardiovascular and respiratory monitoring with pulse oximetry, automatic blood pressure and on car supervisor. Once the sedative effect was achieved the patient was place in the left lateral decubitus, the panendoscope was introduced and advanced under visual control. Careful examination of the upper gastrointestinal tract, both on insertion as well as withdrawal of the instrument disclosed the following findings: ESOPHAGUS: The mucosa of the entire esophagus appears within normal limits. There is no evidence of esophagitis, varices, neoplasm or stricture. No Hiatal Hernia identified. STOMACH: Upon entrance to the stomach air was insufflated, the gastric foy distended normally. The mucosa of the fundus, body and antrum of the stomach was carefully examined and shows significant erythema and edema in the mucosa, more prominent in the antrum. Biopsies were obtained to rule out H. pylori infection. PYLORUS: The pylorus appears patent and within normal limits, with no evidence of gastric outlet obstruction. DUODENUM: The duodenal mucosa was carefully examined in the duodenal bulb as well as the second portion of the duodenum and appears unremarkable with no evidence of duodenitis, ulcer or neoplasm. The instrument was then withdrawn, the patient tolerated the procedure well and was transfer out of the endoscopy suite awake, and in good condition to continue recovery under observation. IMPRESSION: Moderate gastritis, rule out Helicobacter pylori infection. Biopsies obtained. RECOMMENDATIONS: The patient will be treated with PPI. Diet will be advanced as tolerated. Further recommendations will depend on the patient's clinical course as well as review of biopsies. Dictated By: Dhaval Wang MD /[email or web address] /Document#: [id number]
== END 2016-12-11 20:25 | disposition home or self-care (01) | DRG 392 ==
LOC: E/R 03:43 → MS2 06:00
PROVIDERS: ADMIT Family Medicine; ATTEND Family Medicine
PROC: 0DB68ZX Excision of Stomach, Via Natural or Artificial Opening Endoscopic, Diagnostic (ICD-10-PCS; principal; 2016-12-10 20:30)
DX: K29.70 Gastritis, unspecified, without bleeding (principal); N17.9 Acute kidney failure, unspecified; E11.22 Type 2 diabetes mellitus with diabetic chronic kidney disease; I13.0 Hypertensive heart and chronic kidney disease with heart failure and stage 1 through stage 4 chronic kidney disease, or unspecified chronic kidney disease; I50.30 Unspecified diastolic (congestive) heart failure; E78.5 Hyperlipidemia, unspecified; G89.29 Other chronic pain; N18.9 Chronic kidney disease, unspecified; F17.210 Nicotine dependence, cigarettes, uncomplicated; R94.4 Abnormal results of kidney function studies; K21.9 Gastro-esophageal reflux disease without esophagitis; N28.1 Cyst of kidney, acquired
CPT/HCPCS: 74170; 74176; 76705; 80053; 80061; 81003; 82150; 82962; 83036; 83690; 83735; 84100; 84436; 84443; 84479; 85025; 88305; 88312; C9113; J1200; J1815; J2270; J2405; J2543; J2765; J7030; Q9967

== ENCOUNTER 2016-12-17 11:15 | Emergency (ER) | payer OTHER ==
[~2016-12-17] VITALS: Ht 157.5 cm; Wt 65.0 kg
[~2016-12-17 11:15] MED LIST changes: -BEN25 PO; -ELIM TOP; -FAMO40TA52 PO; -GLIP5TAB25 PO; -HYDR-3498 PO; -INSU100I15 SC; +LANT3I SC; +METO5TAB58 PO; -OMEP20CA16 PO; -ONDA-43 PO; +PANT40TA4 PO; +TRAM50TA2 PO
[2016-12-17 11:18] VITALS: Ht 157.5 cm; Wt 65.0 kg
--- NOTE | 2016-12-17 11:23 | ERA ---
ER Documentation Chief Complaint Date/Time DATE: 12/17/16 TIME: 11:21 Chief Complaint dizziness and abdominal pain started today HPI The patient is a 61-year-old male, presenting to the ER because of abdominal pain, nausea, vomiting of mostly mucus. He has similar symptoms previously. He was admitted and discharged recently on December 08, 2016. He had extensive [address] with contrast that showed bilateral renal cysts, EGD that showed gastritis, gallbladder ultrasound that show gallstones. He complains of dizziness because of nausea and vomiting. He is a very poor historian. He denies headache, neck pain, chest pain, dyspnea, dysuria, diarrhea, constipation. He smokes denies drinking or using any illicit drug. However on last admission he has cocaine and marijuana in his system Past medical history: Chronic pain syndrome, hypertension, chronic kidney disease, gastritis, hearing and speech impairment, cholelithiasis, diabetes, dyslipidemia, bilateral renal cysts, CAD, history of CHF Past surgical history: None ROS All systems reviewed and are negative except as per history of present illness. Medications Home Meds Active Scripts Pantoprazole* (Protonix*) 40 Mg Tablet.dr, 40 MG PO DAILY, #20 TAB Prov:ANY LARSON MD 12/17/16 Tramadol HCl (Tramadol HCl) 50 Mg Tablet, 50 MG PO Q6H Y for PAIN, #30 TAB Prov:MARIVEL MOORE 12/11/16 Metoclopramide* (Reglan*) 5 Mg Tablet, 5 MG PO AC MEALS AND BEDTIME for 30 Days , TAB Prov:REGMARIVEL AGUILAR 12/11/16 Pantoprazole (Protonix) 40 Mg Tabec, 40 MG PO BID for 30 Days, TAB Prov:REGMARIVEL AGUILAR 12/11/16 Insulin Glargine* (Lantus*) 100 Unit/Ml Soln, 36 UNIT SC QHS for 30 Days Prov:MARIVEL MOORE 12/11/16 Ondansetron (Ondansetron Odt) 4 Mg Tab.rapdis, 4 MG PO Q6H Y for NAUSEA AND/OR VOMITING, #10 TAB Prov:MARIVEL MOORE 12/11/16 Hydroxyzine Hcl* (Hydroxyzine Hcl*) 25 Mg Tablet, 25 MG PO Q8H Y for ITCHING, # 30 TAB Prov:AMAYA VILLAFANA NP 11/04/16 Hydrocortisone Acetate (Anusol-Hc) 25 Mg Supp.rect, 1 SUPP [place] BID Y for HEMORROID PAIN/ITCHING, #12 SUPP.RECT Prov:CHANTELLE COLEMAN PA-C 06/03/16 Acetaminophen* (Tylophen*) 500 Mg Capsule, 1 CAP PO Q6H Y for PAIN AND OR ELEVATED TEMP, #20 CAP Prov:KALA CAMARA NP 04/18/16 Calamine* (Calamine*) 120 Ml Lotion, 1 APPLIC TOP Q6 for 5 Days, #120 EA 0 Refills Prov:ELAINE NEFF PA-C 01/25/16 Ibuprofen* (Motrin*) 600 Mg Tab, 600 MG PO Q6, #30 TAB Prov:HAKEEM FORD PA-C 10/30/15 Docusate Sodium* (Colace*) 100 Mg Capsule, 100 MG PO BID, #60 CAP Prov:JESSA GARRISON DO 03/14/15 Atorvastatin (Atorvastatin) 10 Mg Tablet, 10 MG PO DAILY, #30 TAB Prov:JESSA GARRISON DO 03/14/15 Reported Medications Lisinopril* (Lisinopril*) 10 Mg Tablet, 10 MG PO DAILY 06/17/11 Discontinued Reported Medications Famotidine* (Famotidine*) 40 Mg Tablet, 40 MG PO DAILY, TAB 05/13/14 Discontinued Scripts Ondansetron Hcl* (Zofran*) 4 Mg Tab, 4 MG PO Q6H Y for NAUSEA AND OR VOMITING for 3 Days, TAB Prov:CLAUDINE ZUNIGA DO 12/02/16 Permethrin* (Elimite*) 5% Cr, 1 APPLIC TOP ONCE, #1 TUB Prov:AMAYA VILLAFANA NP 11/04/16 Omeprazole* (Omeprazole*) 20 Mg Capsule.dr, 20 MG PO DAILY, #30 CAP Prov:CHANTELLE COLEMAN PA-C 06/03/16 Hydrocodone Bit-Acetaminophen* (Basom*) 5-325 Mg Tab, 1 TAB PO Q6 Y for PAIN, # 20 TAB Prov:AMAYA VILLAFANA NP 11/07/15 Diphenhydramine Hcl* (Benadryl*) 25 Mg Cap, 25 MG PO Q6, #14 CAP Prov:TARAS AMBROSIO PA-C 07/09/15 Glipizide* (Glipizide ER*) 5 Mg/Bottle Tab.osm.24, 5 MG PO DAILY, #30 TAB Prov:JESSA GARRISON DO 03/14/15 Omeprazole* (Omeprazole*) 20 Mg Capsule.dr, 20 MG PO DAILY, #30 CAP Prov:JESSA GARRISON DO 03/14/15 Insulin Glargine,Hum.rec.anlog (Lantus Solostar) 100 Units/Ml Pen, 32 UNIT SC QHS, #30 DOSE Prov:JESSA GARRISON DO 03/14/15 Allergies Allergies: Coded Allergies: No Known Drug Allergies (Unverified Allergy, Unknown, 12/08/16) PMhx/Soc History of Surgery: No Anesthesia Reaction: No Hx Neurological Disorder: No Hx Respiratory Disorders: No Hx Cardiac Disorders: Yes (HTN) Hx Psychiatric Problems: No Hx Miscellaneous Medical Probl: No Hx Alcohol Use: No Hx Substance Use: No Hx Tobacco Use: Yes Physical Exam Vitals Vital Signs Date Time Temp Pulse Resp B/P Pulse Ox O2 Delivery O2 Flow Rate FiO2 12/17/16 11:18 98.3 97 18 141/63 99 Physical Exam Const: No acute distress. Head: Atraumatic. Eyes: Normal Conjunctiva. ENT: Normal External Ears, Nose and Mouth. Neck: Full range of motion. No meningismus. Resp: Clear to auscultation bilaterally. Cardio: Regular rate and rhythm. Abd: Soft, non distended, normal bowel sounds, minimal and vague epigastric abdominal discomfort, no right upper quadrant, right lower quadrant, rigidity, rebound, CVA tenderness Skin: No petechiae or rashes. Back: No midline or flank tenderness. Ext: No cyanosis, or edema. Neur: Awake and alert. No focal deficit Psych: Normal Mood and Affect. Result Diagram: 12/17/16 1210 12/17/16 1210 Results 24 hrs Laboratory Tests Test 12/17/16 11:35 12/17/16 12:03 12/17/16 12:10 12/17/16 12:12 Urine Opiates Screen NEGATIVE Urine Barbiturates NEGATIVE Urine Amphetamines Screen NEGATIVE Urine Benzodiazepines Screen NEGATIVE Urine Cocaine Screen POSITIVE Urine Cannabinoids POSITIVE Bedside Urine pH (LAB) 5.5 Bedside Urine Protein (LAB) Trace Bedside Urine Glucose (UA) 0.1% Bedside Urine Ketones (LAB) Negative Bedside Urine Blood Trace-intact Bedside Urine Nitrite (LAB) Negative Bedside Urine Leukocyte Esterase (L Negative White Blood Count 11.910^3/ul Red Blood Count 4.4510^6/ul Hemoglobin 13.6g/dl Hematocrit 39.6% Mean Corpuscular Volume 89.0fl Mean Corpuscular Hemoglobin 30.6pg Mean Corpuscular Hemoglobin Concent 34.3g/dl Red Cell Distribution Width 13.5% Platelet Count 29228^3/UL Mean Platelet Volume 10.9fl Neutrophils % 68.1% Lymphocytes % 18.5% Monocytes % 8.5% Eosinophils % 2.4% Basophils % 1.2% Nucleated Red Blood Cells % 0.0/100WBC Neutrophils # 8.110^3/ul Lymphocytes # 2.210^3/ul Monocytes # 1.010^3/ul Eosinophils # 0.310^3/ul Basophils # 0.110^3/ul Nucleated Red Blood Cells # 0.010^3/ul Sodium Level 136mmol/L Potassium Level 4.8mmol/L Chloride Level 97mmol/L Carbon Dioxide Level 24mmol/L Anion Gap 20 Blood Urea Nitrogen 32mg/dl Creatinine 1.63mg/dl Glucose Level 230mg/dl Calcium Level 9.8mg/dl Total Bilirubin 0.1mg/dl Direct Bilirubin 0.00mg/dl Indirect Bilirubin 0.1mg/dl Aspartate Amino Transf (AST/SGOT) 72IU/L Alanine Aminotransferase (ALT/SGPT) 87IU/L Alkaline Phosphatase 88IU/L Total Protein 8.1g/dl Albumin 4.5g/dl Globulin 3.60g/dl Albumin/Globulin Ratio 1.25 Lipase 479U/L Ethyl Alcohol Level < 10.0mg/dl Bedside Glucose 231mg/dL Current Medications Medications (Trade) Dose Ordered Sig/Jerilyn Route PRN Reason Start Time Stop Time Status Last Admin Dose Admin Ondansetron HCl (Zofran Inj) 4 mg ONCE STAT IV 12/17/16 11:52 12/17/16 11:53 DC 12/17/16 12:39 Pantoprazole (Protonix Iv) 40 mg ONCE ONCE IV 12/17/16 12:00 12/17/16 12:01 DC 12/17/16 12:40 Procedures/MDM EKG: Read by emergency physician Rate/Rhythm: Normal Sinus Rhythm 93 beats/min QRS, ST, T-waves: No ST elevation, no T inversion Impression: Normal EKG MEDICAL MAKING DECISION: The patient is a 61-year-old male, presenting with chronic abdominal pain of unclear etiology, substance abuse. He was treated with Zofran 4 mg IV for nausea and Protonix 40 mg IV for epigastric abdominal pain with good response. He is resting comfortably, multiple repeat abdominal exams are unremarkable The differential diagnoses considered include but are not limited to cholelithiasis, cholecystitis, cystitis, pancreatitis, hepatitis, gastritis, peptic ulcer disease, gastric ulcer, appendicitis, diverticulitis, cholangitis, choledocholithiasis, partial small bowel obstruction, acute anxiety attack, acute panic attack, substance abuse. Departure Diagnosis: Primary Impression: Chronic abdominal pain Additional Impressions: Substance abuse Anemia Condition: Good Comments I discussed the findings with the patient. I advised the patient to follow-up with the primary physician in about 1 day, sooner if needed and return if any concern. He was discharged with ANY Cueto MD Dec 17, 2016 11:23
[2016-12-17] MEDS ORDERED: ONDANSETRON 4 MG INJ IV STA (11:52)
[2016-12-17 11:58] LABS: URINE BLOOD (Dip) POC Trace-intact (NEGATIVE)
[2016-12-17] MEDS ORDERED: PANTOPRAZOLE 40 MG INJ IV ONE (12:00)
[2016-12-17 12:23] LABS: BASOPHIL # 0.1 10^3/ul (0.0-0.1); BASOPHILS % 1.2 % (0.0-2.0); EOSINOPHILS # 0.3 10^3/ul (0.0-0.5); EOSINOPHILS % 2.4 % (0.0-7.0); HEMATOCRIT 39.6 % (42.0-52.0); HEMOGLOBIN 13.6 g/dl (14.0-18.0); LYMPHOCYTES # 2.2 10^3/ul (0.8-2.9); LYMPHOCYTES % 18.5 % (15.0-51.0); MEAN CORPUSCULAR HEMOGLOBIN 30.6 pg (29.0-33.0); MEAN CORPUSCULAR HGB CONC 34.3 g/dl (32.0-37.0); MEAN PLATELET VOLUME 10.9 fl (7.4-10.4); MONOCYTES % 8.5 % (0.0-11.0); NEUTROPHIL # 8.1 10^3/ul (1.6-7.5); NEUTROPHILS % 68.1 % (39.0-77.0); PLATELET COUNT 263 10^3/UL (140-415); RED BLOOD COUNT 4.45 10^6/ul (4.70-6.10); RED CELL DISTRIBUTION WIDTH 13.5 % (11.5-14.5); WHITE BLOOD COUNT 11.9 10^3/ul (4.8-10.8)
[2016-12-17 12:43] LABS: BARBITURATES NEGATIVE (NEGATIVE); BENZODIAZEPINES NEGATIVE (NEGATIVE); CANNABINOIDS POSITIVE (NEGATIVE); COCAINE POSITIVE (NEGATIVE); OPIATES NEGATIVE (NEGATIVE)
[2016-12-17 12:50] LABS: ALANINE AMINOTRANSFERASE 87 IU/L (13-69); ALBUMIN 4.5 g/dl (3.3-4.9); ALBUMIN/GLOBULIN RATIO 1.25; ALKALINE PHOSPHATASE 88 IU/L (42-121); ANION GAP 20 (8-16); ASPARTATE AMINO TRANSFERASE 72 IU/L (15-46); BILIRUBIN,INDIRECT 0.1 mg/dl (0-1.1); BILIRUBIN,TOTAL 0.1 mg/dl (0.2-1.3); BLOOD UREA NITROGEN 32 mg/dl (7-20); CALCIUM 9.8 mg/dl (8.4-10.2); CARBON DIOXIDE 24 mmol/L (21-31); CHLORIDE 97 mmol/L (97-110); CREATININE 1.63 mg/dl (0.61-1.24); GLUCOSE 230 mg/dl (70-220); POTASSIUM 4.8 mmol/L (3.5-5.1); SODIUM 136 mmol/L (135-144); TOTAL PROTEIN 8.1 g/dl (6.1-8.1)
[2016-12-17 12:53] LABS: ETHANOL < 10.0 mg/dl
[2016-12-17] MEDS ORDERED: PANT40TA3 PO (13:34)
== END 2016-12-17 13:45 | disposition home or self-care (01) ==
LOC: E/R 11:15
DX: R10.13 Epigastric pain (principal); F14.10 Cocaine abuse, uncomplicated; F12.10 Cannabis abuse, uncomplicated; D64.9 Anemia, unspecified; I12.9 Hypertensive chronic kidney disease with stage 1 through stage 4 chronic kidney disease, or unspecified chronic kidney disease; N18.9 Chronic kidney disease, unspecified; E11.22 Type 2 diabetes mellitus with diabetic chronic kidney disease; I25.10 Atherosclerotic heart disease of native coronary artery without angina pectoris; Z79.4 Long term (current) use of insulin; Z79.84 Long term (current) use of oral hypoglycemic drugs
CPT/HCPCS: 36415; 80053; 80306; 80307; 81003; 82962; 83690; 85025; 93005; 96374; 96375; C9113; J2405; Z7502

== ENCOUNTER 2017-01-30 22:03 | Emergency (ER) | payer SELFPAY ==
[~2017-01-30] VITALS: Wt 63.5 kg
[~2017-01-30 22:03] MED LIST changes: +PANT40TA3 PO
== END 2017-01-31 00:55 | disposition left against medical advice (07) ==
LOC: E/R 22:03
DX: Z53.21 Procedure and treatment not carried out due to patient leaving prior to being seen by health care provider (principal)

== ENCOUNTER 2017-01-31 02:26 | Emergency (ER) | payer SELFPAY ==
[~2017-01-31] VITALS: Wt 63.5 kg
== END 2017-01-31 03:30 | disposition left against medical advice (07) ==
LOC: E/R 02:26
DX: Z53.21 Procedure and treatment not carried out due to patient leaving prior to being seen by health care provider (principal)

== ENCOUNTER 2017-04-29 04:32 | Emergency (ER) | payer MEDICAID, OTHER ==
[~2017-04-29] VITALS: Ht 167.6 cm; Wt 61.9 kg
[2017-04-29 04:38] VITALS: Ht 167.6 cm; Wt 61.9 kg
[2017-04-29 05:40] LABS: URINE BLOOD (Dip) POC 1+ (NEGATIVE)
--- NOTE | 2017-04-29 05:41 | ERD ---
ER Documentation Chief Complaint Chief Complaint Abd pain, n/v x 2 days. +dizzy HPI 7-year-old male with abdominal pain nausea vomiting for 2 days. Also complaining of feeling of the room is spinning. Patient has multiple of these complaints multiple times in the past. States he is out of his chronic abdominal pain medication. Patient denies any new complaints. Pain is colicky in nature generalized in location with no exacerbating or alleviating factors. ROS All systems reviewed and are negative except as per history of present illness. Medications Home Meds Active Scripts Pantoprazole* (Protonix*) 40 Mg Tablet.dr, 40 MG PO DAILY, #20 TAB Prov:ANY LARSON MD 12/17/16 Tramadol HCl (Tramadol HCl) 50 Mg Tablet, 50 MG PO Q6H Y for PAIN, #30 TAB Prov:MARIVEL MOORE 12/11/16 Metoclopramide* (Reglan*) 5 Mg Tablet, 5 MG PO AC MEALS AND BEDTIME for 30 Days , TAB Prov:MARIVEL MOORE 12/11/16 Pantoprazole (Protonix) 40 Mg Tabec, 40 MG PO BID for 30 Days, TAB Prov:REGMARIVEL AGUILAR 12/11/16 Insulin Glargine* (Lantus*) 100 Unit/Ml Soln, 36 UNIT SC QHS for 30 Days Prov:MARIVEL MOORE 12/11/16 Ondansetron (Ondansetron Odt) 4 Mg Tab.rapdis, 4 MG PO Q6H Y for NAUSEA AND/OR VOMITING, #10 TAB Prov:MARIVEL MOORE 12/11/16 Hydroxyzine Hcl* (Hydroxyzine Hcl*) 25 Mg Tablet, 25 MG PO Q8H Y for ITCHING, # 30 TAB Prov:AMAYA VILLAFANA NP 11/04/16 Hydrocortisone Acetate (Anusol-Hc) 25 Mg Supp.rect, 1 SUPP [place] BID Y for HEMORROID PAIN/ITCHING, #12 SUPP.RECT Prov:CHANTELLE COLEMAN PA-C 06/03/16 Acetaminophen* (Tylophen*) 500 Mg Capsule, 1 CAP PO Q6H Y for PAIN AND OR ELEVATED TEMP, #20 CAP Prov:KALA CAMARA NP 04/18/16 Calamine* (Calamine*) 120 Ml Lotion, 1 APPLIC TOP Q6 for 5 Days, #120 EA 0 Refills Prov:ELAINE NEFF PA-C 01/25/16 Ibuprofen* (Motrin*) 600 Mg Tab, 600 MG PO Q6, #30 TAB Prov:HAKEEM FORD PA-C 10/30/15 Docusate Sodium* (Colace*) 100 Mg Capsule, 100 MG PO BID, #60 CAP Prov:JESSA GARRISONKalli DO 03/14/15 Atorvastatin (Atorvastatin) 10 Mg Tablet, 10 MG PO DAILY, #30 TAB Prov:JESSA GARRISONKalli DO 03/14/15 Reported Medications Lisinopril* (Lisinopril*) 10 Mg Tablet, 10 MG PO DAILY 06/17/11 Allergies Allergies: Coded Allergies: No Known Drug Allergies (Unverified Allergy, Unknown, 04/29/17) PMhx/Soc History of Surgery: No Anesthesia Reaction: No Hx Neurological Disorder: No Hx Respiratory Disorders: No Hx Cardiac Disorders: Yes (HTN) Hx Psychiatric Problems: No Hx Miscellaneous Medical Probl: Yes (DM) Hx Alcohol Use: No Hx Substance Use: No Hx Tobacco Use: Yes Smoking Status: Unknown if ever smoked Physical Exam Vitals Vital Signs Date Time Temp Pulse Resp B/P Pulse Ox O2 Delivery O2 Flow Rate FiO2 04/29/17 05:02 92 16 138/64 100 Room Air 04/29/17 04:38 98.6 99 18 143/82 98 Physical Exam Const: [] Head: Atraumatic Eyes: Normal Conjunctiva ENT: Normal External Ears, Nose and Mouth. Neck: Full range of motion..~ No meningismus. Resp: Clear to auscultation bilaterally Cardio: Regular rate and rhythm, no murmurs Abd: Soft, non tender, non distended. Normal bowel sounds Skin: No petechiae or rashes Back: No midline or flank tenderness Ext: No cyanosis, or edema Neur: Awake and alert Psych: Normal Mood and Affect Procedures/MDM Medical decision-making process: 7-year-old male reactivation of chronic abdominal pain. At this point clinically stable for outpatient management. Patient will be discharged home. Told to follow-up in 8 hours for serial abdominal exams. Told return sooner. At this point pain-free. Well- appearing. Tolerating p.o. Departure Diagnosis: Primary Impression: Chronic abdominal pain Condition: Stable LEYDA DAHL Apr 29, 2017 05:41
[2017-04-29] MEDS ORDERED: TRAM50TA2 PO (05:43)
[2017-04-29 05:54] VITALS: BP 130/86; PULSE 78; RESP 17; TEMP 98.1
[2017-04-29] MEDS ORDERED: traMADol 50 MG TAB PO ONE (06:00)
== END 2017-04-29 05:54 | disposition home or self-care (01) ==
LOC: E/R 04:32
DX: R10.9 Unspecified abdominal pain (principal); I10 Essential (primary) hypertension; E11.9 Type 2 diabetes mellitus without complications; Z79.4 Long term (current) use of insulin; Z87.891 Personal history of nicotine dependence
CPT/HCPCS: 81003; Z7502; Z7610; 99283

== ENCOUNTER 2017-05-03 13:10 | Inpatient (IN) | payer OTHER ==
[~2017-05-03] VITALS: Ht 157.5 cm; Wt 61.4 kg
[2017-05-03] MEDS ORDERED: SOD CHLORIDE 0.9% 1,000 ML IV STA ×2 (13:35→13:41)
[2017-05-03] MEDS ORDERED: morphine 4 MG/ML VIAL IV STA (13:35)
[2017-05-03] MEDS ORDERED: ONDANSETRON 4 MG INJ IV STA (13:35)
[2017-05-03 13:54] LABS: MODE ROOM AIR; MetHgb Venous 0.2 %; Sample Type Blood venous; Venous COHb 1.4 %; Venous Fraction OxyHgb 34.3 %; Venous Total Hemglobin 10.5 g/dl
[2017-05-03] MEDS ORDERED: LORAZEPAM 2 MG INJ IV ONE (14:00)
[2017-05-03 14:08] LABS: ABNORMAL IP MESSAGE 1; BASOPHILS % 0.2 % (0.0-2.0); EOSINOPHILS # 0.1 10^3/ul (0.0-0.5); EOSINOPHILS % 0.5 % (0.0-7.0); HEMATOCRIT 38.9 % (42.0-52.0); HEMOGLOBIN 13.5 g/dl (14.0-18.0); LYMPHOCYTES # 2.6 10^3/ul (0.8-2.9); LYMPHOCYTES % 13.7 % (15.0-51.0); MEAN CORPUSCULAR HEMOGLOBIN 30.5 pg (29.0-33.0); MEAN CORPUSCULAR HGB CONC 34.7 g/dl (32.0-37.0); MEAN PLATELET VOLUME 11.5 fl (7.4-10.4); MONOCYTE # 1.5 10^3/ul (0.3-0.9); MONOCYTES % 7.8 % (0.0-11.0); NEUTROPHIL # 14.6 10^3/ul (1.6-7.5); NEUTROPHILS % 75.9 % (39.0-77.0); PLATELET COUNT 236 10^3/UL (140-415); POSITIVE DIFF @See below; RED BLOOD COUNT 4.42 10^6/ul (4.70-6.10); RED CELL DISTRIBUTION WIDTH 12.6 % (11.5-14.5); WHITE BLOOD COUNT 19.3 10^3/ul (4.8-10.8)
--- NOTE | 2017-05-03 14:18 | ERD ---
ER Documentation Chief Complaint Chief Complaint Complains of vomiting and abdominal pain HX of Diabetes HPI This is a 61-year-old male [place]-speaking and [place]ese speaking using an historical interpreter the patient is a very difficult and poor historian. The patient has a history of chronic abdominal pain with frequent visits to the emergency room. He is also diabetic. He presents with abdominal pain that is diffuse, 8 out of 10 that started around 3 AM this morning. His glucose was noted to be in the 400s. The patient is unsure if he is taking his diabetes medications. The remainder of HPI is very limited. The patient cannot provide further history. He is very distractible. ROS All systems reviewed and are negative except as per history of present illness. Medications Home Meds Active Scripts Pantoprazole* (Protonix*) 40 Mg Tablet.dr, 40 MG PO DAILY, #20 TAB Prov:ANY LARSON MD 12/17/16 Tramadol HCl (Tramadol HCl) 50 Mg Tablet, 50 MG PO Q6H Y for PAIN, #30 TAB Prov:MARIVEL MOORE 12/11/16 Metoclopramide* (Reglan*) 5 Mg Tablet, 5 MG PO AC MEALS AND BEDTIME for 30 Days , TAB Prov:MARIVEL MOORE 12/11/16 Insulin Glargine* (Lantus*) 100 Unit/Ml Soln, 36 UNIT SC QHS for 30 Days Prov:MARIVEL MOORE 12/11/16 Ondansetron (Ondansetron Odt) 4 Mg Tab.rapdis, 4 MG PO Q6H Y for NAUSEA AND/OR VOMITING, #10 TAB Prov:MARIVEL MOORE 12/11/16 Hydroxyzine Hcl* (Hydroxyzine Hcl*) 25 Mg Tablet, 25 MG PO Q8H Y for ITCHING, # 30 TAB Prov:AMAYA VILLAFANA NP 11/04/16 Hydrocortisone Acetate (Anusol-Hc) 25 Mg Supp.rect, 1 SUPP [place] BID Y for HEMORROID PAIN/ITCHING, #12 SUPP.RECT Prov:CHANTELLE COLEMAN PA-C 06/03/16 Acetaminophen* (Tylophen*) 500 Mg Capsule, 1 CAP PO Q6H Y for PAIN AND OR ELEVATED TEMP, #20 CAP Prov:KALA CAMARA NP 04/18/16 Calamine* (Calamine*) 120 Ml Lotion, 1 APPLIC TOP Q6 for 5 Days, #120 EA 0 Refills Prov:ELAINE NEFF PA-C 01/25/16 Ibuprofen* (Motrin*) 600 Mg Tab, 600 MG PO Q6, #30 TAB Prov:HAKEEM FORD PA-C 10/30/15 Docusate Sodium* (Colace*) 100 Mg Capsule, 100 MG PO BID, #60 CAP Prov:JESSA GARRISON DO 03/14/15 Atorvastatin (Atorvastatin) 10 Mg Tablet, 10 MG PO DAILY, #30 TAB Prov:JESSA GARRISON DO 03/14/15 Reported Medications Lisinopril* (Lisinopril*) 10 Mg Tablet, 10 MG PO DAILY 06/17/11 Discontinued Scripts Tramadol HCl (Tramadol HCl) 50 Mg Tablet, 50 MG PO Q4 Y for PAIN, #20 TAB Prov:LEYDA DAHL 04/29/17 Pantoprazole (Protonix) 40 Mg Tabec, 40 MG PO BID for 30 Days, TAB Prov:MARIVEL MOORE 12/11/16 Allergies Allergies: Coded Allergies: No Known Drug Allergies (Unverified Allergy, Unknown, 05/03/17) PMhx/Soc History of Surgery: No Anesthesia Reaction: No Hx Neurological Disorder: Yes ([place]) Hx Respiratory Disorders: No Hx Cardiac Disorders: Yes (HTN, CAD, CHF) Hx Psychiatric Problems: No Hx Miscellaneous Medical Probl: Yes (DM, chronic pain syndrome, renal cycsts, gastritis, cholelithiasis, CKD) Hx Alcohol Use: No Hx Substance Use: No Hx Tobacco Use: Yes Smoking Status: Former smoker FmHx Family History: diabetes Physical Exam Vitals Vital Signs Date Time Temp Pulse Resp B/P Pulse Ox O2 Delivery O2 Flow Rate FiO2 05/03/17 15:21 88 19 137/61 98 Room Air 05/03/17 13:15 99.0 99 20 135/61 10 Physical Exam General: Uncomfortable, distractible Head: Normocephalic, atraumatic. Eyes: Pupils equally reactive, EOM intact ENT: Moist mucous membranes Neck: Supple, no lymphadenopathy Respiratory: Lungs clear bilaterally, no distress Cardiovascular: RRR, no murmurs, rubs, or gallops Abdominal: Mild diffuse tenderness without rebound or guarding, no true peritonitis : Deferred MSK: No edema, no unilateral swelling, 5/5 strength Neurologic: Alert and oriented, moving all extremities, normal speech, no focal weakness, no cerebellar signs Skin: No rash Psych: Normal mood Result Diagram: 05/03/17 1350 05/03/17 1350 Results 24 hrs Laboratory Tests Test 05/03/17 13:41 05/03/17 13:44 05/03/17 13:50 05/03/17 15:00 Blood Gas Specimen Source Blood venous Arterial Blood Date Drawn 05/03/2017 1:46:57 PM Arterial Blood Gas Puncture Site VENOUS LINE Eder Test N/A Venous Blood pH 7.311 Venous Blood pCO2 (Temp Corrected) 25.9mmHG Venous Blood pO2 (Temp Corrected) 21.2mmHG Venous Blood HCO3 12.8mmol/L Venous Blood Oxygen Saturation 34.9mmHG Venous Blood Base Excess -12.0mmol/L Venous Blood Total Hemoglobin 10.5g/dl Venous Blood Oxyhemoglobin 34.3% Venous Blood Methemoglobin 0.2% Carboxyhemoglobin 1.4% Blood Gas Temperature 37.0C Blood Gas Modality ROOM AIR FiO2 21.0% Blood Gas Notified Whom CALEB RT Blood Gas Notified Time 05/03/2017 1:53:43 PM Bedside Glucose 486mg/dL White Blood Count 19.310^3/ul Red Blood Count 4.4210^6/ul Hemoglobin 13.5g/dl Hematocrit 38.9% Mean Corpuscular Volume 88.0fl Mean Corpuscular Hemoglobin 30.5pg Mean Corpuscular Hemoglobin Concent 34.7g/dl Red Cell Distribution Width 12.6% Platelet Count 51192^3/UL Mean Platelet Volume 11.5fl Neutrophils % 75.9% Lymphocytes % 13.7% Monocytes % 7.8% Eosinophils % 0.5% Basophils % 0.2% Nucleated Red Blood Cells % 0.0/100WBC Neutrophils # 14.610^3/ul Lymphocytes # 2.610^3/ul Monocytes # 1.510^3/ul Eosinophils # 0.110^3/ul Basophils # 0.010^3/ul Nucleated Red Blood Cells # 0.010^3/ul Sodium Level 124mmol/L Potassium Level 4.8mmol/L Chloride Level 88mmol/L Carbon Dioxide Level 21mmol/L Anion Gap 20 Blood Urea Nitrogen 111mg/dl Creatinine 3.67mg/dl Glucose Level 498mg/dl Calcium Level 9.5mg/dl Total Bilirubin 0.8mg/dl Direct Bilirubin 0.00mg/dl Indirect Bilirubin 0.8mg/dl Aspartate Amino Transf (AST/SGOT) 38IU/L Alanine Aminotransferase (ALT/SGPT) 65IU/L Alkaline Phosphatase 98IU/L Total Protein 7.1g/dl Albumin 4.0g/dl Globulin 3.10g/dl Albumin/Globulin Ratio 1.29 Lipase 251U/L Lactic Acid Level 1.5mmol/L Test 05/03/17 15:07 05/03/17 15:26 05/03/17 15:49 Bedside Glucose 430mg/dL Lactic Acid Level 2.9mmol/L Bedside Urine pH (LAB) 5.5 Bedside Urine Protein (LAB) Negative Bedside Urine Glucose (UA) 0.50% Bedside Urine Ketones (LAB) Negative Bedside Urine Blood Trace-lysed Bedside Urine Nitrite (LAB) Negative Bedside Urine Leukocyte Esterase (L Negative Current Medications Medications (Trade) Dose Ordered Sig/Jerilyn Route PRN Reason Start Time Stop Time Status Last Admin Dose Admin Sodium Chloride (NS) 1,000 ml @ 1,000 mls/hr Q1H STAT IV 05/03/17 13:35 05/03/17 14:34 DC 05/03/17 13:53 Morphine Sulfate (morphine) 4 mg ONCE STAT IV 05/03/17 13:35 05/03/17 13:36 DC 05/03/17 13:53 Ondansetron HCl 4 mg 4 mg ONCE STAT IV 05/03/17 13:35 05/03/17 13:36 DC 05/03/17 13:52 Sodium Chloride (NS) 1,000 ml @ 1,000 mls/hr Q1H STAT IV 05/03/17 13:41 05/03/17 14:40 DC 05/03/17 15:19 Lorazepam (Ativan) 0.5 mg ONCE ONCE IV 05/03/17 14:00 05/03/17 14:01 DC 05/03/17 13:52 Insulin Human Lispro (Humalog) 10 unit ONCE STAT SC 05/03/17 14:42 05/03/17 14:43 DC 05/03/17 15:11 Ondansetron HCl (Zofran Inj) 4 mg BRIDGE ORDER PRN IV NAUSEA AND/OR VOMITING 05/03/17 16:00 05/04/17 15:59 Acetaminophen 650 mg 650 mg ER BRIDGE PRN PO MILD PAIN/FEVER 05/03/17 16:00 05/04/17 15:59 Cefepime HCl (Maxipime 1gm/50 ml (Pmx)) 50 ml @ 100 mls/hr ONCE ONCE IVPB 05/03/17 17:00 05/03/17 17:29 Procedures/MDM EKG, MONITORS, & DIAGNOSTIC IMAGING: CT abdomen and pelvis IMPRESSION: 1. Bilateral renal cysts. 2. Otherwise unremarkable noncontrast CT abdomen and pelvis without acute pathology identified. RPTAT: QQ Chest x-ray: I reviewed and interpreted a 1 view of the chest Mediastinum: No enlargement Cardiac silhouette: No cardiomegaly Airspace: Clear lung ramírez bilaterally without evidence of pneumothorax Bones: No evidence of fracture LAB INTERPRETATION: Leukocytosis of 19, hyperglycemia, initial lactic acid is normal, there were 2 lactic acid back to back one was normal, one was slightly elevated. Consider lab error. Repeat sending. MEDICAL DECISION MAKING: The patient presents with abdominal pain, acute on chronic. The patient has a history of diabetes, chronic abdominal pain with frequent visits to the emergency room. The patient has had multiple CT scans this year but the last one was in October. Patient has diffuse abdominal tenderness. Unclear etiology. Given the patient's age, comorbidities potential for DKA versus acute intra- abdominal process is present. The patient has had multiple CTs he is having diffuse tenderness. CT imaging appropriate. Additionally the patient was found to have leukocytosis of [address] imaging. The patient's pH is reassuring at 7.3. Lower pretest probability for DKA however IV fluids provided. ER COURSE: The patient has multiple laboratory abnormalities including leukocytosis. The patient does not have a fever. The patient technically has Sirs given initial respiratory rate of 20 but no clear source. Blood cultures been taken. I do not have a clear source of infection, consider viral process versus stress response secondary to vomiting. A dose of cefepime provided empirically but again the patient does not meet criteria for sepsis. The patient's creatinine is much worse than baseline prompting IV fluids and inpatient hospitalization. The patient does have hyperglycemia with a borderline anion gap of 15. I do not believe insulin drip is required given normal pH and no ketones in urine. Subcutaneous Humalog provided. IV fluids provided. The patient remained stable but I believe would benefit from inpatient hospitalization given his laboratory abnormalities, acute on chronic renal insufficiency. I kept the patient and/or family informed of laboratory and diagnostic imaging results throughout the emergency room course. DISPOSITION PLAN: Medical surgical admission CONSULTATION: Accepting care team and consultations: I discussed the current laboratory data, diagnostic imaging and emergency care provided. Admitting team: Dr. Yeager Admitting team indication: Insurance directed Departure Diagnosis: Primary Impression: Abdominal pain Abdominal location: generalized Qualified Code: R10.84 - Generalized abdominal pain Additional Impressions: Hyperglycemia SIRS (systemic inflammatory response syndrome) Acute renal insufficiency Condition: Stable JONNY TERRAZAS MD May 03, 2017 14:18
[2017-05-03 14:32] LABS: ALBUMIN/GLOBULIN RATIO 1.29; BILIRUBIN,INDIRECT 0.8 mg/dl (0-1.1); BILIRUBIN,TOTAL 0.8 mg/dl (0.2-1.3); CALCIUM 9.5 mg/dl (8.4-10.2); CREATININE 3.67 mg/dl (0.61-1.24); POTASSIUM 4.8 mmol/L (3.5-5.1); TOTAL PROTEIN 7.1 g/dl (6.1-8.1)
[2017-05-03] MEDS ORDERED: INSULIN LISPRO 100 UNIT/ML VIAL SC STA (14:42)
--- NOTE | 2017-05-03 14:49 | RADRPT ---
PROCEDURE: CT Abdomen and Pelvis without intravenous contrast. CLINICAL INDICATION: Abdominal Pain. Vomiting. TECHNIQUE: CT scan of the abdomen and pelvis without intravenous contrast was performed on a multi -slice CT scanner. Coronal and sagittal reformatted images were obtained from the axial source image s. Images were reviewed on a high-resolution PACS workstation. DICOM images are available. Total DLP = 670.9 mGy-cm. CTDIvol = 11.4 mGy. One or more of the following dose reduction techniques were used: Automated exposure control. Adjustment of the mA and/or kV according to patient size. Use of iterative reconstruction technique. COMPARISON: 12/09/2016 FINDINGS: CT abdomen and pelvis: The lung bases are clear. The heart size is normal in size. The liver is normal in size and densit y without focal mass or intrahepatic biliary dilatation. The spleen is normal in size and homogeneo us in density. The pancreas as visualized is normal. The gallbladder shows no evidence of stones or distension . The adrenal glands are normal. The kidneys are symmetric in size. There are multi ple bilateral round exophytic renal masses likely representing cysts (as described on prior CT scan) and stable since prior exam. There is no evidence of obstructive uropathy or urolithiasis.. The stomach is partially collapsed, but is grossly unremarkable. There is a calcified lymph nodes se en in the lesser sac.. The small bowels are unremarkable. The colon and rectum are normal. The appen brittanie is normal. There is no evidence of appendicitis or diverticulitis. The pelvic organs are normal . The bladder is normal. There is no abdominal or pelvic adenopathy, free fluid, free air, mass or m esenteric inflammation. The aorta is normal in caliber and course. The osseous structures showing degenerative enthesopathy of the spine. No osteolytic or osteoblastic lesions are identified. The soft tissues are within no rmal limits. Lack of IV and oral contrast limits sensitivity of exam. IMPRESSION: 1. Bilateral renal cysts. 2. Otherwise unremarkable noncontrast CT abdomen and pelvis without acute pathology identified. RPTAT: QQ .Ulisses Sol MD, Date Time Electronically viewed and signed by .Ulisses Sol MD, on 05/03/2017 14:49 .[place]
--- NOTE | 2017-05-03 14:59 | RADRPT ---
PROCEDURE: XR Chest. CLINICAL INDICATION: Chest pain . TECHNIQUE: Single frontal chest x-ray. COMPARISON: 12/05/2016 FINDINGS: The lungs are clear of acute infiltrates, edema, effusions, or masses.. The cardiomediastinal silho uette is unremarkable. The osseous structures are intact. IMPRESSION: No acute cardiopulmonary disease. RPTAT: GG .Ulisses Sol MD, Date Time Electronically viewed and signed by .Ulisses Sol MD, on 05/03/2017 14:58 .L/
[2017-05-03 15:21] VITALS: PULSE 88
[2017-05-03 15:50] LABS: URINE BLOOD (Dip) POC Trace-lysed (NEGATIVE)
[2017-05-03] MEDS ORDERED: ONDANSETRON 4 MG INJ IV PRN ×2 (16:00→20:00)
[2017-05-03] MEDS ORDERED: ACETAMINOPHEN 325 MG TAB PO PRN ×2 (16:00→20:00)
[2017-05-03] MEDS ORDERED: CEFEPIME 1GM/50 ML (PMX) 50 ML IVPB ONE (17:00)
[2017-05-03 17:18] VITALS: TEMP 98.9
[2017-05-03 18:01] VITALS: BP 125/58; RESP 18
[2017-05-03 18:56] LABS: ADD UMIC NO; UR ASCORBIC ACID 20 mg/dL (NEGATIVE); UR BILIRUBIN (Dip) NEGATIVE (NEGATIVE); UR BLOOD (Dip) NEGATIVE (NEGATIVE); UR CLARITY CLEAR (CLEAR); UR COLOR YELLOW (YELLOW); UR GLUCOSE (Dip) 3+ mg/dL (NEGATIVE); UR KETONES (Dip) NEGATIVE (NEGATIVE); UR LEUKOCYTE ESTERASE (Dip) NEGATIVE Leu/ul (NEGATIVE); UR NITRITE (Dip) NEGATIVE (NEGATIVE); UR TOTAL PROTEIN (Dip) NEGATIVE (NEGATIVE); UR UROBILINOGEN (Dip) NEGATIVE (NEGATIVE)
[2017-05-03 19:50] VITALS: BP 135/64; RESP 20
[2017-05-03] MEDS ORDERED: DOCUSATE SODIUM 100 MG CAP PO PRN (20:00)
[2017-05-03] MEDS ORDERED: HYPOGLYCEMIA PROTOCOL when Glucose is <70 mg/dL or symptomatic <90 mg/dL. XX ONE (20:00)
[2017-05-03] MEDS ORDERED: traMADol 50 MG TAB PO PRN (20:00)
[2017-05-03] MEDS ORDERED: HYDROCODONE/APAP (5/325) TAB PO PRN (20:00)
[2017-05-03] MEDS ORDERED: ZOLPIDEM 5 MG TAB PO PRN (20:00)
[2017-05-03] MEDS ORDERED: hydrOXYzine HCL 25 MG TAB PO PRN (20:00)
[2017-05-03] MEDS ORDERED: NACL 0.9% 3 ML SYG IV SCH (20:00)
[2017-05-03] MEDS ORDERED: Discontinue current oral sulfonylureas (glyburide, glipizide, and/or glimepiride) prior to XX ONE (20:00)
[2017-05-03] MEDS: morphine 2 MG INJ IV PRN (20:10)
[2017-05-03] MEDS ORDERED: DEXTROSE 50% 50 ML SYRINGE IV PRN ×2 (20:30)
[2017-05-03] MEDS ORDERED: GLUCOSE GEL 15 GRAM TUBE BUCCAL PRN (20:30)
[2017-05-03] MEDS ORDERED: GLUCOSE GEL 15 GRAM TUBE PO PRN ×2 (20:30)
[2017-05-03] MEDS ORDERED: GLUCAGON 1 MG INJ IM PRN (20:30)
[2017-05-03] MEDS: LORAZEPAM 2 MG INJ IV PRN (20:56)
[2017-05-03] MEDS ORDERED: METOCLOPRAMIDE 5 MG TAB PO SCH (21:00)
[2017-05-03] MEDS ORDERED: INSULIN ASPART [NOVOLOG] 3 ML PEN SC SCH (21:00)
[2017-05-03] MEDS ORDERED: INSULIN GLARGINE [LANtus] 3 ML PEN SC SCH (21:00)
[2017-05-03] MEDS: DOCUSATE SODIUM 100 MG CAP PO SCH (21:00)
[2017-05-03] MEDS: INSULIN ASPART [NOVOLOG] 3 ML PEN SC SCH (21:17)
[2017-05-03] MEDS ORDERED: SOD CHLORIDE 0.9% 250 ML IV ONE (22:00)
[2017-05-03] MEDS: SOD CHLORIDE 0.9% 1,000 ML IV SCH (23:00)
[2017-05-03] MEDS: IBUPROFEN 600 MG TAB PO SCH (23:28)
[2017-05-04 00:14] VITALS: Ht 157.5 cm; Wt 61.4 kg
[2017-05-04] MEDS: morphine 2 MG INJ IV PRN ×4 (00:38→16:50)
[2017-05-04] MEDS: INSULIN ASPART [NOVOLOG] 3 ML PEN SC SCH ×7 (01:05→18:06)
[2017-05-04] MEDS ORDERED: ACCU-CHEK XX SCH (02:00)
[2017-05-04 03:28] LABS: BASOPHILS % 0.2 % (0.0-2.0); EOSINOPHILS # 0.2 10^3/ul (0.0-0.5); EOSINOPHILS % 0.9 % (0.0-7.0); HEMOGLOBIN 13.6 g/dl (14.0-18.0); LYMPHOCYTES # 2.9 10^3/ul (0.8-2.9); LYMPHOCYTES % 14.8 % (15.0-51.0); MEAN CORPUSCULAR HEMOGLOBIN 30.8 pg (29.0-33.0); MEAN CORPUSCULAR HGB CONC 34.9 g/dl (32.0-37.0); MEAN CORPUSCULAR VOLUME 88.2 fl (82.0-101.0); MONOCYTE # 1.3 10^3/ul (0.3-0.9); MONOCYTES % 6.8 % (0.0-11.0); NEUTROPHIL # 14.8 10^3/ul (1.6-7.5); NEUTROPHILS % 76.1 % (39.0-77.0); PLATELET COUNT 189 10^3/UL (140-415); RED BLOOD COUNT 4.42 10^6/ul (4.70-6.10); RED CELL DISTRIBUTION WIDTH 12.7 % (11.5-14.5); WHITE BLOOD COUNT 19.4 10^3/ul (4.8-10.8)
[2017-05-04] MEDS: LORAZEPAM 2 MG INJ IV PRN ×3 (03:43→18:21)
[2017-05-04 03:58] LABS: CHOL/HDL RATIO 4.4 RATIO; CREATININE 1.8 mg/dl (0.61-1.24); MAGNESIUM 1.9 mg/dl (1.7-2.5); PHOSPHORUS 3.6 mg/dl (2.5-4.9)
[2017-05-04] MEDS: IBUPROFEN 600 MG TAB PO SCH (05:18)
[2017-05-04] MEDS: SOD CHLORIDE 0.9% 1,000 ML IV SCH ×3 (05:18→20:30)
[2017-05-04] MEDS: CALAMINE 170 ML LOT TOP SCH ×3 (05:19→18:10)
[2017-05-04] MEDS ORDERED: PANTOPRAZOLE (EC) 40 MG TAB PO SCH ×2 (06:00)
[2017-05-04] MEDS ORDERED: PANTOPRAZOLE 40 MG INJ IV SCH (06:00)
[2017-05-04 07:52] VITALS: BP 127/59; RESP 18
[2017-05-04] MEDS ORDERED: INSULIN ASPART [NOVOLOG] 3 ML PEN SC SCH ×2 (08:15→21:00)
--- NOTE | 2017-05-04 08:52 | HP ---
Date/Time of Note Date/Time of Note DATE: 05/04/17 TIME: 08:37 Assessment/Plan VTE Prophylaxis VTE Prophylaxis Intervention: SCD's Lines/Catheters IV Catheter Type (from Nrs): Peripheral IV Assessment/Plan Assessment/Plan 1. Type 1 diabetes, with hyperglycemia: A1c 7.8 -Continue insulin with adjustment as needed -IV fluid 2. Acute on CKD -Likely secondary to volume depletion as a result of vomiting -Continue IV fluid -Hold his Ibuprofen -Renal ultrasound and nephrology consult as needed 3. Pseudohyponatremia: Secondary to hyperglycemia -Treat hypoglycemia, IV fluid 4. Abdominal pain with vomiting -CT abdomen/pelvis only shows bilateral renal cysts otherwise unremarkable. Patient had an EGD 5 months ago which showed moderate gastritis, which could be a contributing factor. Given diabetes gastroparesis, if also very likely etiology of symptoms especially given the associated vomiting. LFTs and lipase within normal limits -PPI -Pain management and antiemetics as needed -Treat diabetes -Correct electrolytes -Additional imaging as needed 5. SIRS, with leukocytosis and tachycardia (on initial presentation) -UA and a chest x-ray nondiagnostic -Follow-up urine culture and blood culture -IV fluid and empiric antibiotic -This could be stress reaction 6. History of dyslipidemia -Continue statin HPI/ROS Admit Date/Time Admit Date/Time May 03, 2017 at 15:45 Hx of Present Illness This is a 61-year-old male with history of hypertension, diabetes dyslipidemia, gastritis, chronic pain, CKD, diastolic dysfunction. Patient presents to the ER complaining of diffuse abdominal pain, vomiting (nonbloody) and generalized weakness. Patient does not a good historian and was actually sleepy and as such information was mainly gathered from chart review. Patient was last admitted here about 5 months ago for abdominal pain. At that time he underwent EGD was a finding of moderate gastritis. When he presented to the ER this time, vitals were stable. Labs shows blood glucose of almost 500, anion gap 20, bicarb 21, UA with no ketones, WBC 19,000, sodium 124. UA not consistent with UTI and a chest x-ray was no active cardiopulmonary disease. CT abdomen/pelvis shows bilateral renal cysts otherwise unremarkable. Patient was treated with IV fluid and insulin with improvement of hyperglycemia. PMH/Family/Social Past Surgical History Past Surgical Hx: no surgical history Social History Smoking Status: Former smoker Exam/Review of Systems Vital Signs Vitals Vital Signs Date Time Temp Pulse Resp B/P Pulse Ox O2 Delivery O2 Flow Rate FiO2 05/04/17 07:52 98.0 80 18 127/59 99 05/03/17 17:18 Room Air Intake and Output 05/03/17 05/03/17 05/04/17 15:00 23:00 07:00 Intake Total 250 ml 550 ml Output Total 300 ml 400 ml Balance -50 ml 150 ml Exam Constitutional: other (Sleepy but arousable. No acute distress) Head: atraumatic, normocephalic Eyes: PERRL Respiratory: clear to auscultation, normal air movement Cardiovascular: nl pulses, regular rate and rhythm Gastrointestinal: soft, tender Extremities: normal pulses Labs Result Diagram: 05/04/1731705/04/17317 Medications Medications Current Medications Influenza Virus Vaccine 0.5 ml 0.5 ml ONCE ONCE IM* ; Start 05/04/17 at 09:00; Stop 05/04/17 at 09:01 Sodium Chloride (NS) 1,000 ml @ 100 mls/hr Q10H IV Last administered on 23:00; Admin Dose 100 MLS/HR; Start 05/03/17 at 19:54 Ondansetron HCl (Zofran Inj) 4 mg Q6H PRN IV NAUSEA AND/OR VOMITING Last administered on 05/04/17 00:42; Admin Dose 4 MG; Start 05/03/17 at 20:00 Acetaminophen (Tylenol Tab) 650 mg Q6H PRN PO PAIN LEVEL 1-3 OR FEVER; Start 05/03/17 at 20:00 Acetaminophen/ Hydrocodone Bitart ([place] (5/325)) 1 tab Q6H PRN PO MODERATE PAIN LEVEL 4-6; Start 05/03/17 at 20:00 Morphine Sulfate (morphine) 2 mg Q4H PRN IV SEVERE PAIN LEVEL 7-10 Last administered on 05/04/17 07:32; Admin Dose 2 MG; Start 05/03/17 at 20:00 Docusate Sodium (Colace) 100 mg Q12H PRN PO CONSTIPATION; Start 05/03/17 at 20 :00 Zolpidem Tartrate (Ambien) 5 mg QHS PRN PO SLEEP; Start 05/03/17 at 20:00 Enoxaparin Sodium (Lovenox) 40 mg DAILY SC ; Start 05/04/17 at 09:00 Atorvastatin Calcium (Lipitor) 10 mg DAILY PO ; Start 05/04/17 at 09:00 Calamine (Calamine Lotion) 1 applic Q6 TOP ; Start 05/04/17 at 06:00 Docusate Sodium (Colace) 100 mg BID PO ; Start 05/03/17 at 21:00 Hydroxyzine HCl (Atarax) 25 mg Q8H PRN PO ITCHING; Start 05/03/17 at 20:00 Ibuprofen (Motrin) 600 mg Q6 PO ; Start 05/04/17 at 00:00 Insulin Glargine (Lantus) 36 unit QHS SC Last administered on 05/03/17t 21:18 ; Admin Dose 36 UNIT; Start 05/03/17 at 21:00 Lisinopril (Zestril) 10 mg DAILY PO ; Start 05/04/17 at 09:00 Tramadol HCl (Ultram) 50 mg Q6H PRN PO PAIN; Start 05/03/17 at 20:00 Diagnostic Test (Pha) (Accu-Chek) 1 ea 02 XX ; Start 05/04/17 at 02:00 Lorazepam (Ativan) 1 mg Q6H PRN IV AGITATION/ANXIETY Last administered on 05/04t 03:43; Admin Dose 1 MG; Start 05/03/17 at 20:30 Miscellaneous Information 1 ea NOTE XX ; Start 05/03/17 at 20:30 Glucose (Glutose) 15 gm Q15M PRN PO DECREASED GLUCOSE; Start 05/03/17 at 20:30 Glucose (Glutose) 22.5 gm Q15M PRN PO DECREASED GLUCOSE; Start 05/03/17 at 20: 30 Dextrose (D50w Syringe) 25 ml Q15M PRN IV DECREASED GLUCOSE; Start 05/03/17 at 20:30 Dextrose (D50w Syringe) 50 ml Q15M PRN IV DECREASED GLUCOSE; Start 05/03/17 at 20:30 Glucagon (Glucagen) 1 mg Q15M PRN IM DECREASED GLUCOSE; Start 05/03/17 at 20: 30 Glucose (Glutose) 15 gm Q15M PRN BUCCAL DECREASED GLUCOSE; Start 05/03/17 at 20:30 Insulin Aspart (Novolog Insulin Pen) NOVOLOG *MILD* ALGORI... Q4 SC Last administered on 05/04/17 04:31; Admin Dose 2 UNIT; Start 05/03/17 at 21:00 Pantoprazole (Protonix Iv) 40 mg DAILY@06 IV Last administered on 05/04/17 05 :22; Admin Dose 40 MG; Start 05/04/17 at 06:00 LEYDA NOLASCO MD May 04, 2017 08:49
[2017-05-04] MEDS: DOCUSATE SODIUM 100 MG CAP PO SCH (09:00)
[2017-05-04] MEDS ORDERED: ATORVASTATIN 10 MG TAB PO SCH (09:00)
[2017-05-04] MEDS ORDERED: INFLUENZA VIRUS VACCINE 0.5 ML (DISPENSING) IM* ONE (09:00)
[2017-05-04] MEDS ORDERED: ENOXAPARIN 40 MG/0.4 ML SYG SC SCH (09:00)
[2017-05-04] MEDS ORDERED: LISINOPRIL 10 MG TAB PO SCH (09:00)
--- NOTE | 2017-05-04 09:14 | PN ---
Date/Time of Note Date/Time of Note DATE: 05/04/17 TIME: 09:03 Assessment/Plan VTE Prophylaxis VTE Prophylaxis Intervention: SCD's Lines/Catheters IV Catheter Type (from Nrsg): Peripheral IV Assessment/Plan Assessment/Plan 1. Systemic inflammatory response syndrome with lactic acidosis secondary to # 2 &3 2. Suboptimal diabetes type 2 control 3. Nausea and Abdominal pain which could be secondary to acute renal failure versus diabetic gastroparesis rule out gastritis 4. Chronic renal cysts 5. Acute on chronic kidney disease: Improved 6. Hypertriglyceridemia: Mild patient is on chronic statin therapy 7. Pseudohyponatremia: Resolved Plan Continue IV hydration / change reglan to IV Advance diet to clear liquids if tolerated Closely monitor blood sugar control and adjust insulin dosing, and consider adding oral hypoglycemic to further control We will get renal ultrasound, and consider nephrology consultation if indicated Continue all other medications and supportive care. Further interventions per clinical course Subjective 24 Hr Interval Summary Free Text/Dictation crying ?2/2 abd pain, uncooperative with exam, Per nurses, will induce vomiting , ?to feel better Exam/Review of Systems Vital Signs Vitals Vital Signs Date Time Temp Pulse Resp B/P Pulse Ox O2 Delivery O2 Flow Rate FiO2 05/04/17 07:52 98.0 80 18 127/59 99 05/03/17 17:18 Room Air Intake and Output 05/03/17 05/03/17 05/04/17 15:00 23:00 07:00 Intake Total 250 ml 550 ml Output Total 300 ml 400 ml Balance -50 ml 150 ml Exam Constitutional: crying and moaning in distress, will not speak, holding his belly Head: atraumatic, normocephalic Eyes: PERRL Respiratory: clear to auscultation, normal air movement Cardiovascular: nl pulses, regular rate and rhythm Gastrointestinal: soft, tender Extremities: normal pulses Results Result Diagram: 05/04/1731705/04/17317 Results 24 hrs Laboratory Tests Test 05/03/17 13:41 05/03/17 13:44 05/03/17 13:50 05/03/17 15:00 Blood Gas Specimen Source Blood venous Arterial Blood Date Drawn 05/03/2017 1:46:57 PM Arterial Blood Gas Puncture Site VENOUS LINE Eder Test N/A Venous Blood pH 7.311 L Venous Blood pCO2 (Temp Corrected) 25.9 L Venous Blood pO2 (Temp Corrected) 21.2 L Venous Blood HCO3 12.8 L Venous Blood Oxygen Saturation 34.9 L Venous Blood Base Excess -12.0 L Venous Blood Total Hemoglobin 10.5 Venous Blood Oxyhemoglobin 34.3 Venous Blood Methemoglobin 0.2 Carboxyhemoglobin 1.4 Blood Gas Temperature 37.0 Blood Gas Modality ROOM AIR FiO2 21.0 Blood Gas Notified Whom CALEB RT Blood Gas Notified Time 05/03/2017 1:53:43 PM Bedside Glucose 486 *H White Blood Count 19.3 #H Red Blood Count 4.42 L Hemoglobin 13.5 L Hematocrit 38.9 L Mean Corpuscular Volume 88.0 Mean Corpuscular Hemoglobin 30.5 Mean Corpuscular Hemoglobin Concent 34.7 Red Cell Distribution Width 12.6 Platelet Count 236 Mean Platelet Volume 11.5 H Neutrophils % 75.9 Lymphocytes % 13.7 L Monocytes % 7.8 Eosinophils % 0.5 Basophils % 0.2 Nucleated Red Blood Cells % 0.0 Neutrophils # 14.6 H Lymphocytes # 2.6 Monocytes # 1.5 H Eosinophils # 0.1 Basophils # 0.0 Nucleated Red Blood Cells # 0.0 Sodium Level 124 L Potassium Level 4.8 Chloride Level 88 L Carbon Dioxide Level 21 Anion Gap 20 H Blood Urea Nitrogen 111 H Creatinine 3.67 H Glucose Level 498 *H Calcium Level 9.5 Total Bilirubin 0.8 Direct Bilirubin 0.00 Indirect Bilirubin 0.8 Aspartate Amino Transf (AST/SGOT) 38 Alanine Aminotransferase (ALT/SGPT) 65 Alkaline Phosphatase 98 Total Protein 7.1 Albumin 4.0 Globulin 3.10 Albumin/Globulin Ratio 1.29 Lipase 251 Lactic Acid Level 1.5 Test 05/03/17 15:07 05/03/17 15:26 05/03/17 15:49 05/03/17 16:40 Bedside Glucose 430 *H Lactic Acid Level 2.9 *H 2.0 Bedside Urine pH (LAB) 5.5 Bedside Urine Protein (LAB) Negative Bedside Urine Glucose (UA) 0.50% H Bedside Urine Ketones (LAB) Negative Bedside Urine Blood Trace-lysed H Bedside Urine Nitrite (LAB) Negative Bedside Urine Leukocyte Esterase (L Negative Test 05/03/17 16:55 05/03/17 17:35 05/03/17 20:12 05/03/17 20:59 Bedside Glucose 322 H 259 H Urine Color YELLOW Urine Clarity CLEAR Urine pH 5.0 Urine Specific [place] 1.010 Urine Ketones NEGATIVE Urine Nitrite NEGATIVE Urine Bilirubin NEGATIVE Urine Urobilinogen NEGATIVE Urine Leukocyte Esterase NEGATIVE Urine Hemoglobin NEGATIVE Urine Glucose 3+ H Urine Total Protein NEGATIVE Lactic Acid Level 2.6 *H Test 05/04/17 01:01 05/04/17 03:18 05/04/17 04:26 Bedside Glucose 236 H 210 White Blood Count 19.4 H Red Blood Count 4.42 L Hemoglobin 13.6 L Hematocrit 39.0 L Mean Corpuscular Volume 88.2 Mean Corpuscular Hemoglobin 30.8 Mean Corpuscular Hemoglobin Concent 34.9 Red Cell Distribution Width 12.7 Platelet Count 189 Mean Platelet Volume 11.0 H Neutrophils % 76.1 Lymphocytes % 14.8 L Monocytes % 6.8 Eosinophils % 0.9 Basophils % 0.2 Nucleated Red Blood Cells % 0.0 Neutrophils # 14.8 H Lymphocytes # 2.9 Monocytes # 1.3 H Eosinophils # 0.2 Basophils # 0.0 Nucleated Red Blood Cells # 0.0 Sodium Level 136 Potassium Level 4.0 Chloride Level 101 # Carbon Dioxide Level 23 Anion Gap 16 Blood Urea Nitrogen 69 #H Creatinine 1.80 #H Glucose Level 224 #H Hemoglobin A1c 7.8 H Lactic Acid Level 2.1 H Calcium Level 9.0 Phosphorus Level 3.6 Magnesium Level 1.9 Triglycerides Level 159 H Cholesterol Level 141 LDL Cholesterol, Calculated 77 HDL Cholesterol 32 Cholesterol/HDL Ratio 4.4 Medications Medications Current Medications Sodium Chloride (NS) 1,000 ml @ 100 mls/hr Q10H IV Last administered on 23:00; Admin Dose 100 MLS/HR; Start 05/03/17 at 19:54 Ondansetron HCl (Zofran Inj) 4 mg Q6H PRN IV NAUSEA AND/OR VOMITING Last administered on 05/04/17 00:42; Admin Dose 4 MG; Start 05/03/17 at 20:00 Acetaminophen (Tylenol Tab) 650 mg Q6H PRN PO PAIN LEVEL 1-3 OR FEVER; Start 05/03/17 at 20:00 Acetaminophen/ Hydrocodone Bitart ([place] (5/325)) 1 tab Q6H PRN PO MODERATE PAIN LEVEL 4-6; Start 05/03/17 at 20:00 Morphine Sulfate (morphine) 2 mg Q4H PRN IV SEVERE PAIN LEVEL 7-10 Last administered on 05/04/17 07:32; Admin Dose 2 MG; Start 05/03/17 at 20:00 Docusate Sodium (Colace) 100 mg Q12H PRN PO CONSTIPATION; Start 05/03/17 at 20 :00 Zolpidem Tartrate (Ambien) 5 mg QHS PRN PO SLEEP; Start 05/03/17 at 20:00 Enoxaparin Sodium (Lovenox) 40 mg DAILY SC ; Start 05/04/17 at 09:00 Atorvastatin Calcium (Lipitor) 10 mg DAILY PO ; Start 05/04/17 at 09:00 Calamine (Calamine Lotion) 1 applic Q6 TOP ; Start 05/04/17 at 06:00 Docusate Sodium (Colace) 100 mg BID PO ; Start 05/03/17 at 21:00 Hydroxyzine HCl (Atarax) 25 mg Q8H PRN PO ITCHING; Start 05/03/17 at 20:00 Ibuprofen (Motrin) 600 mg Q6 PO ; Start 05/04/17 at 00:00 Insulin Glargine (Lantus) 36 unit QHS SC Last administered on 05/03/17 21:18 ; Admin Dose 36 UNIT; Start 05/03/17 at 21:00 Lisinopril (Zestril) 10 mg DAILY PO ; Start 05/04/17 at 09:00 Tramadol HCl (Ultram) 50 mg Q6H PRN PO PAIN; Start 05/03/17 at 20:00 Diagnostic Test (Pha) (Accu-Chek) 1 ea 02 XX ; Start 05/04/17 at 02:00 Lorazepam (Ativan) 1 mg Q6H PRN IV AGITATION/ANXIETY Last administered on 05/04 03:43; Admin Dose 1 MG; Start 05/03/17 at 20:30 Miscellaneous Information 1 ea NOTE XX ; Start 05/03/17 at 20:30 Glucose (Glutose) 15 gm Q15M PRN PO DECREASED GLUCOSE; Start 05/03/17 at 20:30 Glucose (Glutose) 22.5 gm Q15M PRN PO DECREASED GLUCOSE; Start 05/03/17 at 20: 30 Dextrose (D50w Syringe) 25 ml Q15M PRN IV DECREASED GLUCOSE; Start 05/03/17 at 20:30 Dextrose (D50w Syringe) 50 ml Q15M PRN IV DECREASED GLUCOSE; Start 05/03/17 at 20:30 Glucagon (Glucagen) 1 mg Q15M PRN IM DECREASED GLUCOSE; Start 05/03/17 at 20: 30 Glucose (Glutose) 15 gm Q15M PRN BUCCAL DECREASED GLUCOSE; Start 05/03/17 at 20:30 Insulin Aspart (Novolog Insulin Pen) NOVOLOG *MILD* ALGORI... Q4 SC Last administered on 05/04/17 04:31; Admin Dose 2 UNIT; Start 05/03/17 at 21:00 Pantoprazole (Protonix Iv) 40 mg DAILY@06 IV Last administered on 05/04/17 05 :22; Admin Dose 40 MG; Start 05/04/17 at 06:00 NESTOR FULLER May 04, 2017 09:14
[2017-05-04] MEDS ORDERED: DOCUSATE SODIUM 250 MG CAP PO SCH (10:00)
[2017-05-04] MEDS: METOCLOPRAMIDE 10 MG INJ IV SCH ×2 (11:45→18:21)
[2017-05-04 14:00] VITALS: BP 126/86; RESP 19
[2017-05-05] MEDS ORDERED: ACCU-CHEK XX SCH (02:00)
== END 2017-05-04 22:05 | disposition left against medical advice (07) | DRG 700 ==
LOC: E/R 13:10 → MS2 15:45
PROVIDERS: ADMIT Internal Medicine; ATTEND Internal Medicine
DX: E10.22 Type 1 diabetes mellitus with diabetic chronic kidney disease (principal); N17.9 Acute kidney failure, unspecified; N28.1 Cyst of kidney, acquired; E78.5 Hyperlipidemia, unspecified; N18.9 Chronic kidney disease, unspecified; Z79.4 Long term (current) use of insulin
CPT/HCPCS: 36415; 71010; 74176; 80048; 80053; 80061; 81003; 82803; 82962; 83036; 83605; 83690; 83735; 84100; 85025; 87040; 87086; 90686; 96372; 96374; 96375; 96376; C9113; J0692; J1650; J1815; J2060; J2270; J2405; J2765; J7030; J7040

== ENCOUNTER 2017-09-02 02:38 | Emergency (ER) | END 2017-09-02 04:57 | disposition home or self-care (01) ==

== ENCOUNTER 2017-10-15 06:08 | Emergency (ER) | END 2017-10-15 10:06 | disposition home or self-care (01) ==

== ENCOUNTER 2017-11-24 23:28 | Emergency (ER) | END 2017-11-25 02:00 | disposition home or self-care (01) ==

== ENCOUNTER 2017-12-21 12:05 | Emergency (ER) | END 2017-12-22 06:51 | disposition home or self-care (01) ==

== ENCOUNTER 2018-08-25 08:26 | Emergency (ER) | payer MEDICAID ==
[~2018-08-25] VITALS: Ht 160 cm; Wt 63.0 kg
[~2018-08-25 08:26] MED LIST changes: -ACET500C5 PO; -CALAMINE TOP; -DOCU-144 PO; +FAMO-96 PO; -HYDR-3011 PO; +HYDR-843 PO; -HYDR25SU23 PR; -IBUP-1542 PO; -METO5TAB58 PO; -PANT40TA4 PO; +ZOF8 PO
[2018-08-25 08:33] VITALS: Ht 160 cm; Wt 63.0 kg
[2018-08-25] MEDS ORDERED: FAMO-96 PO (09:33)
--- NOTE | 2018-08-25 09:36 | ERD ---
ER Documentation Chief Complaint Chief Complaint ABDOMINAL PAIN/NAUSEA/VOMITTING/COUGH/ HPI 62-year-old male presents with multiple complaints. History available from review of old records as well as in the patient. He is a somewhat difficult historian because he is hard of hearing. Patient states that he has a cough. It is nonproductive and associated with no chest pain or shortness of breath. He was started on antibiotics by his doctor recently. He states that despite the antibiotics, he continues to cough. He reports no fevers, chills, hemoptysis, weight loss. Patient is also describing a chronic abdominal pain with no nausea vomiting or diarrhea. This is nonspecific in nature diffuse and visceral. ROS All systems reviewed and are negative except as per history of present illness. Medications Home Meds Active Scripts Famotidine* (Pepcid*) 20 Mg Tablet, 20 MG PO BID for 4 Days, TAB Prov:ABBIE TREVINO 08/25/18 Ondansetron (Ondansetron Odt) 4 Mg Tab.rapdis, 4 MG PO Q6H PRN for NAUSEA AND/OR VOMITING, #10 TAB Prov:RYAN AGUILERA MD 12/21/17 Tramadol HCl (Tramadol HCl) 50 Mg Tablet, 50 MG PO Q4 PRN for PAIN, #20 TAB Prov:LEYDA DAHL 11/25/17 Ondansetron Hcl* (Zofran*) 8 Mg Tab, 8 MG PO Q6H PRN for NAUSEA AND OR VOMITING, #20 TAB Prov:LEYDA DAHL 11/25/17 Famotidine* (Pepcid*) 20 Mg Tablet, 20 MG PO BID for 14 Days, TAB Prov:LEYDA DAHL 11/25/17 Pantoprazole* (Protonix*) 40 Mg Tablet.dr, 40 MG PO DAILY, #20 TAB Prov:DESTINY HECK MD 10/15/17 Hydroxyzine Hcl* (Hydroxyzine Hcl*) 25 Mg Tablet, 25 MG PO Q8H PRN for ITCHING, #30 TAB Prov:AMAYA VILLAFANA NP 09/02/17 Insulin Glargine* (Lantus*) 100 Unit/Ml Soln, 36 UNIT SC QHS for 30 Days Prov:MARIVEL MOORE 7/20/17 Atorvastatin (Atorvastatin) 10 Mg Tablet, 10 MG PO DAILY, #30 TAB Prov:JESSA GARRISON DO 03/14/15 Reported Medications Lisinopril* (Lisinopril*) 10 Mg Tablet, 10 MG PO DAILY 06/17/11 Allergies Allergies: Coded Allergies: No Known Drug Allergies (Unverified Allergy, Unknown, 10/15/17) PMhx/Soc History of Surgery: Yes (Gastroparesis) Anesthesia Reaction: No Hx Neurological Disorder: No Hx Respiratory Disorders: No Hx Cardiac Disorders: Yes (HTN,Hypercholesterolemia) Hx Psychiatric Problems: No Hx Miscellaneous Medical Probl: Yes (GERD,Gastritis,Renal Cysts,DM2,Cataracts) Hx Alcohol Use: No Hx Substance Use: Yes (Med Marijuana) Hx Tobacco Use: Yes (1 pack/week) Smoking Status: Current every day smoker Physical Exam Vitals Vital Signs Date Temp Pulse Resp B/P (MAP) Pulse Ox O2 O2 Flow FiO2 Time Delivery Rate 08/25/18 98.0 115 24 143/67 98 08:33 (92) Physical Exam GENERAL: The patient is well developed and appropriate for usual state of health in no apparent distress HEENT: Pupils equal, round, and reactive to light. EOMI. There is no scleral icterus. NECK: C-spine is soft and supple, there is no meningismus. There is no cervical lymphadenopathy. LUNGS: Clear to auscultation bilaterally. There are no rales, wheezes or rhonchi. HEART: Regular rate and rhythm, no murmurs, clicks, rubs or gallops. ABDOMEN: Soft, non-tender, non-distended. There are bowel sounds in all four quadrants. No rebound or guarding. EXTREMITIES: There is no peripheral cyanosis or edema. No focal swelling or erythema. NEURO: The patient moves all four extremities with 5/5 strength. Cranial nerves II - XII are intact. Normal gait. Alert and oriented SKIN: There is no apparent rash or petechiae. HEME/LYMPHATIC: There is no evidence of excessive bruising or lymphedema. PSYCHIATRIC: The patient does not appear anxious or depressed. Procedures/MDM Patient was taken to a room, seen and evaluated. Comfort measures were initiate d. Diagnostic tests were ordered and reviewed. RADIOLOGY: Reviewed with the radiologist REEVALUATION: 929: diagnostic tests were appreciated MEDICAL DECISION MAKIN-year-old male presents the emergency department with a cough. His exam and x-ray do not demonstrate pneumonia or other significant high risk thoracic concerns. Patient's abdominal pain appears chronic. His abdominal examination is not consistent with appendicitis, cholecystitis or other high-risk concerns. Patient is overall clinically nontoxic and appropriate for outpatient supportive care. Departure Diagnosis: Primary Impression: Cough Condition: Stable Patient Instructions: Cough, Chronic, Uncertain Cause, (Adult) Additional Instructions: Please see your doctor this week for a recheck, Return for any concerns ABBIE TREVINO Aug 25, 2018 09:36
[2018-08-25 09:39] VITALS: BP 138/67; PULSE 77; RESP 18
== END 2018-08-25 09:39 | disposition home or self-care (01) ==
LOC: E/R 08:26
DX: R05 Cough (principal); I10 Essential (primary) hypertension; E11.9 Type 2 diabetes mellitus without complications; F17.210 Nicotine dependence, cigarettes, uncomplicated; Z79.4 Long term (current) use of insulin
CPT/HCPCS: 71045

== ENCOUNTER 2018-10-31 12:10 | Emergency (ER) | payer MEDICAID ==
[~2018-10-31] VITALS: Ht 154.9 cm; Wt 62.5 kg
[2018-10-31 12:21] VITALS: Ht 154.9 cm; Wt 62.5 kg
[2018-10-31] MEDS ORDERED: SOD CHLORIDE 0.9% 1,000 ML IV STA (12:38)
[2018-10-31] MEDS ORDERED: METOCLOPRAMIDE 10 MG INJ IV STA (12:38)
[2018-10-31] MEDS ORDERED: FAMOTIDINE 20 MG INJ IV STA (12:38)
[2018-10-31] MEDS ORDERED: ONDANSETRON (ODT) 4 MG TAB ODT STA (13:28)
[2018-10-31] MEDS ORDERED: SOD CHLORIDE 0.9% 1,000 ML IV ONE (14:41)
[2018-10-31] MEDS ORDERED: METO10TA92 PO (15:19)
[2018-10-31] MEDS ORDERED: TRAM50TA2 PO (15:19)
[2018-10-31] MEDS ORDERED: LANT3I SC (15:19)
[2018-10-31] MEDS ORDERED: FAMO-96 PO (15:19)
--- NOTE | 2018-10-31 15:22 | ERD ---
ER Documentation Chief Complaint Chief Complaint VOMTING/NAUSEA X 5 DAYS, ACCUCHECK 153 & MED REFILL REQUEST HPI 63-year-old male presents with nausea and vomiting for last 5 days. Patient has a history of insulin-dependent diabetes. Patient has long history of uncontrolled diabetes and has been admitted for DKA. He denies any fevers, chest pain, abdominal pain, diarrhea. Vomit is nonbilious nonbloody. He is requesting refills of his medication. He states he has a primary doctor appointment tomorrow. ROS All systems reviewed and are negative except as per history of present illness. Medications Home Meds Active Scripts Insulin Glargine* (Lantus*) 100 Unit/Ml Soln, 36 UNIT SC QHS, #1 VIAL Prov:REINALDO VU MD 10/31/18 Tramadol HCl (Tramadol HCl) 50 Mg Tablet, 50 MG PO Q4 PRN for PAIN, #20 TAB Prov:REINALDO VU MD 10/31/18 Famotidine* (Pepcid*) 20 Mg Tablet, 20 MG PO qday for 30 Days, #30 TAB Prov:REINALDO VU MD 10/31/18 Metoclopramide* (Reglan*) 10 Mg Tablet, 10 MG PO Q6 PRN for NAUSEA AND/OR VOMITING, #15 TAB Prov:REINALDO VU MD 10/31/18 Famotidine* (Pepcid*) 20 Mg Tablet, 20 MG PO BID for 4 Days, TAB Prov:ABBIE TREVINO 08/25/18 Ondansetron (Ondansetron Odt) 4 Mg Tab.rapdis, 4 MG PO Q6H PRN for NAUSEA AND/OR VOMITING, #10 TAB Prov:RYAN AGUILERA MD 12/21/17 Tramadol HCl (Tramadol HCl) 50 Mg Tablet, 50 MG PO Q4 PRN for PAIN, #20 TAB Prov:LEYDA DAHL 11/25/17 Ondansetron Hcl* (Zofran*) 8 Mg Tab, 8 MG PO Q6H PRN for NAUSEA AND OR VOMITING, #20 TAB Prov:LEYDA DAHL 11/25/17 Famotidine* (Pepcid*) 20 Mg Tablet, 20 MG PO BID for 14 Days, TAB Prov:LEYDA DAHL 11/25/17 Pantoprazole* (Protonix*) 40 Mg Tablet., 40 MG PO DAILY, #20 TAB Prov:DESTINY HECK MD 10/15/17 Hydroxyzine Hcl* (Hydroxyzine Hcl*) 25 Mg Tablet, 25 MG PO Q8H PRN for ITCHING, #30 TAB Prov:AMAYA VILLAFANA NP 09/02/17 Insulin Glargine* (Lantus*) 100 Unit/Ml Soln, 36 UNIT SC QHS for 30 Days Prov:MARIVEL [employer] 12/11/16 Atorvastatin (Atorvastatin) 10 Mg Tablet, 10 MG PO DAILY, #30 TAB Prov:JESSA GARRISON DO 03/14/15 Reported Medications Lisinopril* (Lisinopril*) 10 Mg Tablet, 10 MG PO DAILY 06/17/11 Allergies Allergies: Coded Allergies: No Known Drug Allergies (Unverified Allergy, Unknown, 10/15/17) PMhx/Soc History of Surgery: Yes (Gastroparesis) Anesthesia Reaction: No Hx Neurological Disorder: No Hx Respiratory Disorders: No Hx Cardiac Disorders: Yes (HTN,Hypercholesterolemia) Hx Psychiatric Problems: No Hx Miscellaneous Medical Probl: Yes (GERD,Gastritis,Renal Cysts,DM2,Cataracts) Hx Alcohol Use: No Hx Substance Use: Yes (Med Marijuana) Hx Tobacco Use: Yes (1 pack/week) Physical Exam Vitals Vital Signs Date Temp Pulse Resp B/P (MAP) Pulse Ox O2 O2 Flow FiO2 Time Delivery Rate 10/31/18 98.1 89 16 164/72 98 Room Air 15:48 (102) 10/31/18 97.9 100 18 133/65 99 12:21 (87) Physical Exam Const: No acute distress Head: Atraumatic Eyes: Normal Conjunctiva ENT: Normal External Ears, Nose and Mouth. Neck: Full range of motion. No meningismus. Resp: Clear to auscultation bilaterally Cardio: Regular rate and rhythm, no murmurs Abd: Soft, non tender, non distended. Normal bowel sounds Skin: No petechiae or rashes Back: No midline or flank tenderness Ext: No cyanosis, or edema Neur: Awake and alert Psych: Normal Mood and Affect Result Diagram: 10/31/18 1250 10/31/18 1250 Results 24 hrs Laboratory Tests Test 10/31/18 12:20 10/31/18 12:50 Bedside Glucose 153 mg/dL White Blood Count 9.8 10^3/ul Red Blood Count 4.07 10^6/ul Hemoglobin 12.4 g/dl Hematocrit 37.3 % Mean Corpuscular Volume 91.6 fl Mean Corpuscular Hemoglobin 30.5 pg Mean Corpuscular Hemoglobin Concent 33.2 g/dl Red Cell Distribution Width 13.1 % Platelet Count 291 10^3/UL Mean Platelet Volume 9.9 fl Immature Granulocytes % 0.400 % Neutrophils % 47.1 % Lymphocytes % 31.6 % Monocytes % 8.0 % Eosinophils % 11.8 % Basophils % 1.1 % Nucleated Red Blood Cells % 0.0 /100WBC Immature Granulocytes # 0.040 10^3/ul Neutrophils # 4.6 10^3/ul Lymphocytes # 3.1 10^3/ul Monocytes # 0.8 10^3/ul Eosinophils # 1.2 10^3/ul Basophils # 0.1 10^3/ul Nucleated Red Blood Cells # 0.0 10^3/ul Urine Color JO Urine Clarity CLEAR Urine pH 5.0 Urine Specific [place] 1.029 Urine Ketones NEGATIVE mg/dL Urine Nitrite NEGATIVE mg/dL Urine Bilirubin NEGATIVE mg/dL Urine Urobilinogen 1+ mg/dL Urine Leukocyte Esterase NEGATIVE [place]/ul Urine Microscopic RBC 2 /HPF Urine Microscopic WBC 0 /HPF Urine Mucus FEW /HPF Urine Hemoglobin NEGATIVE mg/dL Urine Glucose NEGATIVE mg/dL Urine Total Protein 2+ mg/dl Sodium Level 139 mmol/L Potassium Level 5.4 mmol/L Chloride Level 103 mmol/L Carbon Dioxide Level 26 mmol/L Anion Gap 10 Blood Urea Nitrogen 21 mg/dl Creatinine 1.54 mg/dl Est Glomerular Filtrat Rate mL/min 46 mL/min Glucose Level 131 mg/dl Calcium Level 9.7 mg/dl Total Bilirubin 0.5 mg/dl Direct Bilirubin 0.00 mg/dl Indirect Bilirubin 0.5 mg/dl Aspartate Amino Transf (AST/SGOT) 49 IU/L Alanine Aminotransferase (ALT/SGPT) 42 IU/L Alkaline Phosphatase 90 IU/L Total Protein 8.5 g/dl Albumin 4.5 g/dl Globulin 4.00 g/dl Albumin/Globulin Ratio 1.12 Lipase 162 U/L Current Medications Medications Dose Sig/Jerilyn Start Time Status Last (Trade) Ordered Route PRN Stop Time Admin Dose Reason Admin Sodium 1,000 ml @ Q1H STAT 10/31/18 DC 10/31/18 Chloride 1,000 mls/hr IV 12:38 10/31/18 13:53 13:37 10 mg ONCE STAT 10/31/18 DC 10/31/18 Metoclopramid IV 12:38 10/31/18 13:53 e HCl 12:39 (Reglan) Famotidine 20 mg ONCE STAT 10/31/18 DC 10/31/18 (Pepcid Iv) IV 12:38 10/31/18 13:53 12:39 Ondansetron 8 mg ONCE STAT 10/31/18 DC 10/31/18 HCl (Zofran ODT 13:28 10/31/18 13:54 Odt) 13:30 Sodium 1,000 ml @ Q0M ONCE 10/31/18 DC 10/31/18 Chloride 0 mls/hr IV 14:41 10/31/18 14:49 14:46 Procedures/MDM EKG: Rate/Rhythm: Normal Sinus Rhythm rate equals 76 QRS, ST, T-waves: No changes consistent w/ acute ischemia Impression: No evidence of ischemia or arrhythmia Patient has normal bicarb. He has slightly elevated potassium. He has elevated BUN and creatinine which is improved from previous visits. Patient was given Reglan 10 mg IV, 2 L normal saline IV. Patient has no significant hyperglycemia. Patient was asking to leave after observation and treatment. Patient presents with nausea vomiting relieved with treatment here in the ER. He may have some diabetic gastroparesis. He has no signs of obstruction, signs of acute surgical abdomen, sepsis. He has no signs of DKA. We will treat with refills of Lantus, Reglan, Pepcid, recommendations for primary care follow-up as scheduled tomorrow. The patient was stable with no new complaints during the ER course. Clinically, there is no current evidence to suggest meningitis, sepsis, acute abdomen, pneumonia, stroke, acute coronary syndrome, pulmonary embolism, aortic dissection or any other emergent condition appearing to require further evaluation or hospitalization. Patient counseled regarding my diagnostic impression and care plan. Prior to discharge all questions answered. Pt agrees with treatment plan and understands strict return precautions. Pt is instructed to follow up with primary care provider within 24-48 hours. Precautionary instructions provided including instructions to return to the ER if not improving or for any worsening or changing symptoms or concerns. Disclaimer: Inadvertent spelling and grammatical errors are likely due to EHR/dictation software use and do not reflect on the overall quality of patient care. Also, please note that the electronic time recorded on this note does not necessarily reflect the actual time of the patient encounter. Departure Diagnosis: Primary Impression: Renal insufficiency Additional Impressions: Multiple complaints Vomiting Vomiting type: unspecified Vomiting Intractability: unspecified Nausea presence: unspecified Qualified Codes: R11.10 - Vomiting, unspecified Condition: Stable Patient Instructions: Vomiting (6Y-Adult), Renal Insufficiency Additional Instructions: Cheque otro vez con jorge doctor primario en el proximo kelley or regresa para mas o nueva simptomas. REINALDO VU MD Oct 31, 2018 15:22
[2018-10-31 15:48] VITALS: BP 164/72; PULSE 89; RESP 16
== END 2018-10-31 16:00 | disposition home or self-care (01) ==
LOC: FTE 12:10
DX: N28.9 Disorder of kidney and ureter, unspecified (principal); I10 Essential (primary) hypertension; E11.9 Type 2 diabetes mellitus without complications; Z79.4 Long term (current) use of insulin; Z87.891 Personal history of nicotine dependence
CPT/HCPCS: 36415; 80053; 81001; 82962; 83690; 85025; 93005; 96361; 96374; 96375; J2765; J7030; Z7502; Z7610

== ENCOUNTER 2018-11-09 05:39 | Emergency (ER) | payer MEDICAID ==
[~2018-11-09] VITALS: Ht 152.4 cm; Wt 61.4 kg
[~2018-11-09 05:39] MED LIST changes: +METO10TA92 PO
[2018-11-09 05:51] VITALS: BP 145/65; PULSE 82; RESP 19; Ht 152.4 cm; Wt 61.4 kg
[2018-11-09] MEDS ORDERED: MAGN400T28 PO (06:54)
[2018-11-09] MEDS ORDERED: SITA100T11 PO (06:54)
[2018-11-09] MEDS ORDERED: MED4DP PO (06:54)
[2018-11-09] MEDS ORDERED: NAPR-985 PO (06:54)
[2018-11-09] MEDS ORDERED: POTA10TA37 PO (06:54)
--- NOTE | 2018-11-09 07:45 | ERD ---
ER Documentation Chief Complaint Chief Complaint BUE AND BLE NUMBNES [id number]; HX OF DM HPI 63-year-old male presenting with numbness to his legs. Patient is also requesting medication refills for his potassium, magnesium and Januvia. Patient has a history of diabetes. Patient denies any other medical problems. NKDA. Surgical history denies. Social history denies ROS All systems reviewed and are negative except as per history of present illness. Medications Home Meds Active Scripts Naproxen* (Naprosyn*) 500 Mg Tablet, 500 MG PO BID PRN for PAIN AND/OR INFLAMMATION, #30 TAB Prov:HAKEEM FORD PA-C 11/09/18 Sitagliptin* (Januvia*) 100 Mg Tablet, 100 MG PO DAILY, #30 TAB Prov:HAKEEM FORD PA-C 11/09/18 Magnesium Oxide* (Magnesium Oxide*) 400 Mg Tablet, 400 MG PO DAILY, #30 TAB Prov:HAKEEM FORD PA-C 11/09/18 Potassium Chloride* (K-Dur*) 10 Meq Tab.prt.sr, 10 MEQ PO DAILY, #30 TAB Prov:HAKEEM FORD PA-C 11/09/18 Methylprednisolone* (Medrol* DOSE PACK) 4 Mg/Dose-Pack Tab.ds.pk, 4 MG PO . DIRECTED, #1 PACKET Prov:HAKEEM FORD PA-C 11/09/18 Insulin Glargine* (Lantus*) 100 Unit/Ml Soln, 36 UNIT SC QHS, #1 VIAL Prov:REINALDO VU MD 10/31/18 Tramadol HCl (Tramadol HCl) 50 Mg Tablet, 50 MG PO Q4 PRN for PAIN, #20 TAB Prov:REINALDO VU MD 10/31/18 Famotidine* (Pepcid*) 20 Mg Tablet, 20 MG PO qday for 30 Days, #30 TAB Prov:REINALDO VU MD 10/31/18 Metoclopramide* (Reglan*) 10 Mg Tablet, 10 MG PO Q6 PRN for NAUSEA AND/OR VOMITING, #15 TAB Prov:RENIALDO VU MD 10/31/18 Famotidine* (Pepcid*) 20 Mg Tablet, 20 MG PO BID for 4 Days, TAB Prov:ABBIE TREVINO 08/25/18 Ondansetron (Ondansetron Odt) 4 Mg Tab.rapdis, 4 MG PO Q6H PRN for NAUSEA AND/OR VOMITING, #10 TAB Prov:RYAN AGUILERA MD 12/21/17 Tramadol HCl (Tramadol HCl) 50 Mg Tablet, 50 MG PO Q4 PRN for PAIN, #20 TAB Prov:LEYDA DAHL 11/25/17 Ondansetron Hcl* (Zofran*) 8 Mg Tab, 8 MG PO Q6H PRN for NAUSEA AND OR VOMITING, #20 TAB Prov:LEYDA DAHL 11/25/17 Famotidine* (Pepcid*) 20 Mg Tablet, 20 MG PO BID for 14 Days, TAB Prov:LEYDA DAHL 11/25/17 Pantoprazole* (Protonix*) 40 Mg Tablet.dr, 40 MG PO DAILY, #20 TAB Prov:DESTINY HECK MD 10/15/17 Hydroxyzine Hcl* (Hydroxyzine Hcl*) 25 Mg Tablet, 25 MG PO Q8H PRN for ITCHING, #30 TAB Prov:AMAYA VILLAFANA NP 09/02/17 Insulin Glargine* (Lantus*) 100 Unit/Ml Soln, 36 UNIT SC QHS for 30 Days Prov:MARIVEL MOORE NP 12/11/16 Atorvastatin (Atorvastatin) 10 Mg Tablet, 10 MG PO DAILY, #30 TAB Prov:JESSA GARRISON DO 03/14/15 Reported Medications Lisinopril* (Lisinopril*) 10 Mg Tablet, 10 MG PO DAILY 06/17/11 Allergies Allergies: Coded Allergies: No Known Drug Allergies (Unverified Allergy, Unknown, 10/15/17) PMhx/Soc History of Surgery: Yes (Gastroparesis) Anesthesia Reaction: No Hx Neurological Disorder: No Hx Respiratory Disorders: No Hx Cardiac Disorders: Yes (HTN,Hypercholesterolemia) Hx Psychiatric Problems: No Hx Miscellaneous Medical Probl: Yes (GERD,Gastritis,Renal Cysts,DM2,Cataracts) Hx Alcohol Use: No Hx Substance Use: Yes (Med Marijuana) Hx Tobacco Use: Yes (1 pack/week) Smoking Status: Current every day smoker FmHx Family History: No diabetes, No coronary disease, No other Physical Exam Vitals Vital Signs Date Temp Pulse Resp B/P (MAP) Pulse Ox O2 O2 Flow FiO2 Time Delivery Rate 11/09/18 98.5 82 19 145/65 97 05:51 (91) Physical Exam GENERAL: The patient is well-appearing, well-nourished, in no acute distress CHEST: Clear to auscultation bilaterally. There are no rales, wheezes or rhonchi. HEART: Regular rate and rhythm. No murmurs, clicks, rubs or gallops. BACK: No midline or flank tenderness. EXTREMITIES: Equal pulses bilaterally. There is no peripheral clubbing, cyanosis or edema. No focal swelling or erythema. Full range of motion. Grossly neurovascularly intact. NEUROLOGIC: Alert and oriented. Cranial nerves II through XII intact. Motor strength in all 4 extremities with 5 out of 5 strength. Sensation grossly intact. Normal speech and gait. SKIN: There is no apparent rash or petechiae. The skin is warm and dry. Results 24 hrs Laboratory Tests Test 11/09/18 06:51 Bedside Glucose 186 mg/dL Procedures/MDM ER course: POC Accu-Chek 186. MDM: 63-year-old male presenting with paresthesias. I believe patient likely has the symptoms secondary to his diabetes. I do not feel there is indication for further blood work or imaging. Patient has sugars within normal range and will be discharged with his diabetic medication. I do not feel blood work is indicated and I have low suspicion for DKA. Patient is discharged with strict ER precautions. All questions answered at discharge Departure Diagnosis: Primary Impression: Paresthesia Condition: Stable Patient Instructions: Paraesthesias Referrals: [facility] YOU HAVE RECEIVED A MEDICAL SCREENING EXAM AND THE RESULTS INDICATE THAT YOU DO NOT HAVE A CONDITION THAT REQUIRES URGENT TREATMENT IN THE EMERGENCY DEPARTMENT. FURTHER EVALUATION AND TREATMENT OF YOUR CONDITION CAN WAIT UNTIL YOU ARE SEEN IN YOUR DOCTORS OFFICE WITHIN THE NEXT 1-2 DAYS. IT IS YOUR RESPONSIBILITY TO MAKE AN APPOINTMENT FOR FOLOW-UP CARE. IF YOU HAVE A PRIMARY DOCTOR --you should call your primary doctor and schedule an appointment IF YOU DO NOT HAVE A PRIMARY DOCTOR YOU CAN CALL OUR PHYSICIAN REFERRAL HOTLINE AT IF YOU CAN NOT AFFORD TO SEE A PHYSICIAN YOU CAN CHOSE FROM THE FOLLOWING [facility] CL[facility]ICS [facility] [address] [facility] [address] [facility] [address] [facility] [address] [facility]. [facility] [phone] [facility]. [facility] [address] Additional Instructions: Call your primary care doctor TOMORROW for an appointment during the next 1 WEEK.Tell the alumni secretary that you were referred from this facility.See the doctor sooner or return here if your condition worsens before your appointment time. HAKEEM FORD PA-C Nov 09, 2018 07:45
== END 2018-11-09 07:08 | disposition home or self-care (01) ==
LOC: FTE 05:39
DX: R20.2 Paresthesia of skin (principal); I10 Essential (primary) hypertension; E11.9 Type 2 diabetes mellitus without complications; F17.210 Nicotine dependence, cigarettes, uncomplicated; Z79.4 Long term (current) use of insulin
CPT/HCPCS: 82962; Z7502; 99283

== ENCOUNTER 2019-02-08 12:50 | Emergency (ER) | payer MEDICAID, OTHER ==
[~2019-02-08] VITALS: Wt 63.4 kg
[~2019-02-08 12:50] MED LIST changes: +CHOL500010 PO; +FAMO20TA18 PO; +GABA300C16 PO; +IBUP-1542 PO; +IBUP800T48 PO; +INSU100I33 SC; +MAGN400T8 PO; +MED4DP PO; +METF500T24 PO; +NAPR-985 PO; +OMEP40CA38 PO; +POTA10TA37 PO; +POTA8CAP19 PO; +SITA100T11 PO; +TRAM50TA PO
[2019-02-08] MEDS ORDERED: KETOROLAC 30 MG INJ IV STA (13:27)
[2019-02-08] MEDS ORDERED: ONDANSETRON 4 MG INJ IV STA (13:27)
[2019-02-08] MEDS ORDERED: SOD CHLORIDE 0.9% 1,000 ML IV STA (13:27)
[2019-02-08 16:12] VITALS: BP 138/74; PULSE 61; RESP 16
== END 2019-02-08 16:16 | disposition home or self-care (01) ==
LOC: E/R 12:50
DX: M79.672 Pain in left foot (principal); R51 Headache; E11.9 Type 2 diabetes mellitus without complications; I10 Essential (primary) hypertension; F17.210 Nicotine dependence, cigarettes, uncomplicated; Z79.4 Long term (current) use of insulin
CPT/HCPCS: 36415; 70450; 73630; 80048; 85025; 85610; 85730; 93971; 96374; 96375; J1885; J2405; J7030; Z7502